=== PATIENT | female | born 1960 | race Caucasian/White ===

== ENCOUNTER 2016-06-28 00:01 | Observation (INO) | payer OTHER, MEDICARE ==
[~2016-06-28] VITALS: Ht 175.3 cm; Wt 118.7 kg
[~2016-06-28 00:01] MED LIST: ALBU8.5H3 PO; ALPR0.5T6 PO; ASPI-664 PO; BUPR100T14 PO; CLON-379 PO; HYDR-906 PO; INSU100V14 SC; LISI20TA11 PO; METF1000 PO; METO25TA4 PO; OMEP40CA6 PO; ONDA4TAB14 PO; RANI150T5 PO; SITA100T8 PO; TRIA0.2521 PO; VENL150C94 PO
[2016-06-28] MEDS ORDERED: SOD CHLORIDE 0.9% 1,000 ML IV STA (00:33)
[2016-06-28 01:23] LABS: ADD SCAN DIFF NO
[2016-06-28 01:26] LABS: BASOPHIL # 0.1 10^3/ul (0.0-0.1); BASOPHILS % 0.4 % (0.0-2.0); EOSINOPHILS # 0.6 10^3/ul (0.0-0.5); EOSINOPHILS % 4.6 % (0.0-7.0); HEMATOCRIT 37.3 % (37.0-47.0); HEMOGLOBIN 11.8 g/dl (12.0-16.0); LYMPHOCYTES % 30.7 % (15.0-51.0); MEAN CORPUSCULAR HEMOGLOBIN 27.4 pg (29.0-33.0); MEAN CORPUSCULAR HGB CONC 31.6 g/dl (32.0-37.0); MEAN CORPUSCULAR VOLUME 86.7 fl (82.0-101.0); MEAN PLATELET VOLUME 9.3 fl (7.4-10.4); MONOCYTE # 0.8 10^3/ul (0.3-0.9); MONOCYTES % 6.1 % (0.0-11.0); NEUTROPHIL # 7.4 10^3/ul (1.6-7.5); NEUTROPHILS % 57.6 % (39.0-77.0); PLATELET COUNT 319 10^3/UL (140-415); RED CELL DISTRIBUTION WIDTH 14.9 % (11.5-14.5); WHITE BLOOD COUNT 12.9 10^3/ul (4.8-10.8)
[2016-06-28 01:38] LABS: ALBUMIN 4.1 g/dl (3.3-4.9)
[2016-06-28 01:39] LABS: POTASSIUM 4.2 mmol/L (3.5-5.1)
[2016-06-28 01:41] LABS: ALBUMIN/GLOBULIN RATIO 1.41; CREATININE 0.67 mg/dl (0.44-1.00)
[2016-06-28 01:42] LABS: CALCIUM 9.8 mg/dl (8.4-10.2)
[2016-06-28 01:54] LABS: ADD UMIC YES; URINE BILIRUBIN (Dip) NEGATIVE (NEGATIVE); URINE BLOOD (Dip) NEGATIVE (NEGATIVE); URINE COLOR LT. YELLOW (YELLOW); URINE KETONES (Dip) TRACE (NEGATIVE); URINE NITRITE (Dip) NEGATIVE (NEGATIVE); URINE TOTAL PROTEIN (Dip) TRACE (NEGATIVE); URINE UROBILINOGEN (Dip) 0.2 E.U./dL (0.1-1.0)
[2016-06-28 02:08] LABS: URINE RBCS 0-2 /HPF (0)
[2016-06-28 02:09] LABS: BACTERIA,URINE OCCASIONAL; SQUAMOUS EPITHELIAL CELL,UR FEW; URINE LEUKOCYTE ESTERASE (Dip) TRACE (NEGATIVE)
[2016-06-28] MEDS ORDERED: SODIUM CHLORIDE 0.9% 1L BAG IV* STA (02:17)
[2016-06-28] MEDS ORDERED: CEFEPIME 2GM/50 ML (PMX) 50 ML IVPB STA (02:17)
[2016-06-28] MEDS ORDERED: VANCOMYCIN 1 GM (PMX) 250 ML IVPB ONE (02:30)
--- NOTE | 2016-06-28 02:57 | RADRPT ---
PROCEDURE: XR Chest. CLINICAL INDICATION: Possible sepsis. TECHNIQUE: 2 frontal views of the chest was obtained COMPARISON: 01/11/2016. FINDINGS: The heart and mediastinum are within normal limits. The lungs are clear. There is no pleural effusion or pneumothorax. IMPRESSION: No acute disease. RPTAT: [facility] Physician Pallavi Date Time Electronically viewed and signed by Berhane Win Physician on 06/28/2016 02:57 RS/
--- NOTE | 2016-06-28 04:00 | ERA ---
ER Documentation Chief Complaint Date/Time DATE: 06/28/16 TIME: 03:59 Chief Complaint RECENT CHANGES TO INSULIN MED, BLOOD SUGAR IS HIGH >405 AT 23:25. +AIKEN HPI This is a very pleasant 55 year female console points to severely elevated blood sugars. Patient such as a mild headache. She had recent change to her blood sugar regimen. She denies any fevers or chills. She denies any other current complaints. ROS All systems reviewed and are negative except as per history of present illness. Medications Home Meds Active Scripts Ondansetron (Ondansetron Odt) 4 Mg Tab.rapdis, 4 MG PO Q6H Y for NAUSEA AND/OR VOMITING, #10 TAB Prov:DANIEL KATZ 03/24/16 Hydrocodone/Acetaminophen ([place] 5-325 Tablet) 1 Each Tablet, 1 TAB PO Q6H Y for PAIN, #20 TAB Prov:DANIEL KATZ 03/24/16 Reported Medications Aspirin (Low Dose Aspirin) 81 Mg Tablet., 81 MG PO DAILY, #30 TAB 01/11/16 Omeprazole* (Omeprazole*) 40 Mg Capsule.dr, 40 MG PO DAILY, #30 CAP 01/11/16 Sitagliptin* (Januvia*) 100 Mg Tablet, 100 MG PO DAILY, #30 TAB 01/11/16 Ranitidine Hcl* (Ranitidine Hcl*) 150 Mg Tablet, 150 MG PO HS, #30 TAB 01/11/16 Metoprolol Tartrate* (Lopressor*) 25 Mg Tablet, 25 MG PO DAILY, #60 TAB 01/11/16 Clonidine Hcl* (Clonidine Hcl*) 0.1 Mg Tab, 0.1 MG PO BID Y for ELEVATED BLOOD PRESSURE, TAB 01/11/16 Metformin Hcl* (Metformin Hcl*) 1,000 Mg Tablet, 1000 MG PO BID, #60 07/28/15 Insulin Regular, Human (Humulin R) 100 Units/Ml Vial, 0 SC 10AM 5PM MIDNIGHT, VIAL 07/28/15 Venlafaxine Hcl* (Venlafaxine Hcl ER*) 150 Mg Cap.er.24h, 150 MG PO DAILY, #30 07/28/15 Bupropion Hcl* (Bupropion Hcl*) 100 Mg Tablet, 100 MG PO TID, #90 07/28/15 Albuterol Sulfate* (Proair HFA*) 8.5 Gm Hfa.aer.ad, 1 PUFF PO Q4 Y for WHEEZING AND SOB, #9 07/28/15 Alprazolam* (Alprazolam*) 0.5 Mg Tablet, 0.5 MG PO QHS Y for ANXIETY, #60 07/28/15 Triazolam* (Triazolam*) 0.25 Mg Tablet, 0.25 MG PO QHS Y for SLEEP, #30 07/28/15 Lisinopril* (Lisinopril*) 20 Mg Tablet, 20 MG PO DAILY, #30 07/28/15 Allergies Allergies: Coded Allergies: No Known Allergy (Unverified , 03/24/16) PMhx/Soc History of Surgery: Yes (Left knee, cholecystectomy, bilateral cataract removal , right wrist ganglio) Anesthesia Reaction: No Hx Neurological Disorder: No Hx Respiratory Disorders: Yes (Asthma) Hx Cardiac Disorders: Yes (HTN) Hx Psychiatric Problems: Yes (Depression, Insomnia) Hx Miscellaneous Medical Probl: Yes (DM, IBS) Hx Alcohol Use: No Hx Substance Use: No Hx Tobacco Use: No Smoking Status: Never smoker Physical Exam Vitals Vital Signs Date Time Temp Pulse Resp B/P Pulse Ox O2 Delivery O2 Flow Rate FiO2 06/28/16 03:44 99 18 135/75 99 Room Air 06/28/16 01:35 91 19 161/71 97 Room Air 06/28/16 00:11 98.5 102 22 176/83 94 Physical Exam Const: [] Head: Atraumatic Eyes: Normal Conjunctiva ENT: Normal External Ears, Nose and Mouth. Neck: Full range of motion..~ No meningismus. Resp: Clear to auscultation bilaterally Cardio: Regular rate and rhythm, no murmurs Abd: Soft, non tender, non distended. Normal bowel sounds Skin: No petechiae or rashes Back: No midline or flank tenderness Ext: No cyanosis, or edema Neur: Awake and alert Psych: Normal Mood and Affect Result Diagram: 06/28/1611106/28/16111 Results 24 hrs Laboratory Tests Test 06/28/16 01:12 06/28/16 03:48 Alanine Aminotransferase (ALT/SGPT) 36IU/L Albumin 4.1g/dl Albumin/Globulin Ratio 1.41 Alkaline Phosphatase 119IU/L Anion Gap 20 Aspartate Amino Transf (AST/SGOT) 21IU/L Basophils # 0.110^3/ul Basophils % 0.4% Blood Urea Nitrogen 20mg/dl Calcium Level 9.8mg/dl Carbon Dioxide Level 28mmol/L Chloride Level 101mmol/L Creatinine 0.67mg/dl Direct Bilirubin 0.00mg/dl Eosinophils # 0.610^3/ul Eosinophils % 4.6% Globulin 2.90g/dl Glucose Level 333mg/dl Hematocrit 37.3% Hemoglobin 11.8g/dl Indirect Bilirubin 0.0mg/dl Lactic Acid Level 2.7mmol/L Lymphocytes # 4.010^3/ul Lymphocytes % 30.7% Mean Corpuscular Hemoglobin 27.4pg Mean Corpuscular Hemoglobin Concent 31.6g/dl Mean Corpuscular Volume 86.7fl Mean Platelet Volume 9.3fl Monocytes # 0.810^3/ul Monocytes % 6.1% Neutrophils # 7.410^3/ul Neutrophils % 57.6% Nucleated Red Blood Cells # 0.010^3/ul Nucleated Red Blood Cells % 0.0/100WBC Platelet Count 31210^3/UL Potassium Level 4.2mmol/L Red Blood Count 4.3010^6/ul Red Cell Distribution Width 14.9% Sodium Level 145mmol/L Total Bilirubin 0.0mg/dl Total Protein 7.0g/dl Urine Bacteria OCCASIONAL Urine Bilirubin NEGATIVE Urine Clarity CLEAR Urine Color LT. YELLOW Urine Glucose 0.25%% Urine Hemoglobin NEGATIVE Urine Ketones TRACE Urine Leukocyte Esterase TRACE Urine Microscopic RBC 0-2/HPF Urine Microscopic WBC 5-10/HPF Urine Nitrite NEGATIVE Urine Specific [place] >=1.030 Urine Squamous Epithelial Cells FEW Urine Total Protein TRACE Urine Urobilinogen 0.2 E.U./dL Urine pH 5.5 White Blood Count 12.910^3/ul Bedside Glucose 189mg/dL Current Medications Medications (Trade) Dose Ordered Sig/Lino Route PRN Reason Start Time Stop Time Status Last Admin Dose Admin Sodium Chloride (NS) 1,000 ml @ 1,000 mls/hr Q1H STAT IV 06/28/16 00:33 06/28/16 01:32 DC 06/28/16 01:26 Sodium Chloride 3550 ml 3,550 ml BOLUS OVER 2 HOURS STAT IV* 06/28/16 02:17 06/28/16 02:19 DC 06/28/16 03:39 Cefepime HCl 50 ml @ 100 mls/hr ONCE STAT IVPB 06/28/16 02:17 06/28/16 02:46 DC 06/28/16 03:39 Vancomycin HCl (Vancocin) 250 ml @ 125 mls/hr ONCE ONCE IVPB 06/28/16 02:30 06/28/16 04:29 Procedures/MDM Patient's infectious symptoms have not stabilized and the patient is at risk of rapid decompensation. The patient will be admitted for careful hydration, antibiotic therapy, and infectious source control. Severe Sepsis Assessment: Infectious Source: [pyleonephritis] End organ damage indicated by: [Lactate > 2.0 mmol/L Severe Sepsis Managment: Blood Cultures X 2 before broad spectrum antibiotics initiated within 3 hours of recognition. 30 ml/kg NS bolus Completed Initial Lactate: 2.7 Repeat Lactate pending Critical Care: Time: 45 minutes Treatments/Evaluations: Emergent fluid management, while maintaining close respiratory support. Immediate broad spectrum antibiotic therapy. Simultaneous assessment for possible sources in order to direct therapy. Consideration for invasive and chemical support to prevent respiratory or cardiac collapse. Septic Shock Assessment (1 hour post 30 ml/kg fluid bolus): Hypotension (SBP < 90 or 40 mmHg drop, MAP < 65): [No] Lactic acid > 4.0 [No] Perfusion Reassessment for Septic Shock: Temp 98.9, Pulse 88, RR 18, BP 117/77] Heart Exam: [Tachycardic] Lung Exam: [No Crackles] Capillary Refill: [Delayed] Peripheral Pulses: [Radially present] Skin: [Mottled, pale] Accepting Care Team: Current data and ongoing care discussed. Time: 3 AM Primary Provider: Hospitalist Consulting: [XOXOXO] Outstanding Data: none Departure Diagnosis: Primary Impression: Hyperglycemia Additional Impression: Sepsis Qualified Code: A41.9 - Sepsis, due to unspecified organism Condition: Serious DANIEL KATZArin Jun 28, 2016 04:00
[2016-06-28 04:04] VITALS: TEMP 98.5
[2016-06-28 04:37] VITALS: PULSE 71
[2016-06-28 04:58] VITALS: BP 138/63; RESP 20
[2016-06-28] MEDS ORDERED: HYDROCODONE/APAP (5/325) TAB PO PRN ×2 (05:00)
[2016-06-28] MEDS ORDERED: hydrALAzine 20 MG INJ IV PRN (05:00)
[2016-06-28] MEDS ORDERED: NACL 0.9% 3 ML SYG IV SCH (05:00)
[2016-06-28] MEDS ORDERED: ALBUTEROL/IPRATROPIUM (NEB) 3 ML AMP HHN PRN (05:00)
[2016-06-28] MEDS ORDERED: ONDANSETRON 4 MG INJ IV PRN (05:00)
[2016-06-28] MEDS ORDERED: NA PHOSPHATE/BIPHOS 133 ML ENEMA PR PRN (05:00)
[2016-06-28] MEDS ORDERED: NITROGLYCERIN (SL) 0.4 MG TAB SL PRN (05:00)
[2016-06-28] MEDS ORDERED: morphine 2 MG INJ IV PRN (05:00)
[2016-06-28] MEDS ORDERED: MAGNESIUM HYDROXIDE 30ML CUP PO PRN (05:00)
[2016-06-28] MEDS ORDERED: DOCUSATE SODIUM 100 MG CAP PO PRN (05:00)
[2016-06-28] MEDS ORDERED: LORAZEPAM 2 MG INJ IV PRN (05:00)
[2016-06-28 05:11] VITALS: Ht 175.3 cm; Wt 118.7 kg
[2016-06-28] MEDS ORDERED: GLUCAGON 1 MG INJ IM PRN (05:30)
[2016-06-28] MEDS ORDERED: DEXTROSE 50% 50 ML SYRINGE IV PRN ×2 (05:30)
[2016-06-28] MEDS ORDERED: GLUCOSE GEL 15 GRAM TUBE PO PRN ×2 (05:30)
[2016-06-28] MEDS ORDERED: GLUCOSE GEL 15 GRAM TUBE BUCCAL PRN (05:30)
[2016-06-28] MEDS: SOD CHLORIDE 0.9% 1,000 ML IV SCH ×3 (06:05→17:39)
[2016-06-28] MEDS: INSULIN ASPART [NOVOLOG] 3 ML PEN SC SCH ×5 (06:06→20:14)
[2016-06-28] MEDS: ACETAMINOPHEN 325 MG TAB PO PRN ×2 (06:07→22:13)
[2016-06-28] MEDS: PIPER-TAZO 3.375 GM IV (PMX) 100 ML IVPB SCH ×4 (06:43→23:43)
--- NOTE | 2016-06-28 06:53 | HP ---
DATE OF ADMISSION: 06/28/2016 CHIEF COMPLAINT: Headache and high blood sugars. HISTORY OF PRESENT ILLNESS: The patient is a 55-year-old female with past medical history of type 1 diabetes, depression, hypertension, irritable bowel syndrome, insomnia, and asthma who comes in wit h very elevated blood sugars. Sugars were found to be greater than 405 on admission. She has also been having some mild headache symptoms. No dizziness or loss of consciousness. No fevers or chill s. Apparently, she had a recent change to her medicines for controlling her blood sugars for diabet es. No chest pain, no shortness of breath, no abdominal pain. No nausea or vomiting. When she cam e in today, she was also found with, in addition to high blood sugars, a white count of 12.9. UA wa s also trace leukocyte esterase positive. She has lactic acidosis of 2.7 as well and mild hypernatr emia. The patient was last here at our hospital from 03/12/2016 to 03/14/2016, and at that time, bailey sandoval was treated for abdominal pain. PAST MEDICAL HISTORY: As stated above. ALLERGIES: NO KNOWN DRUG ALLERGIES. HOME MEDICINES: 1. ProAir HFA q. 4 hours p.r.n. 2. Clonidine 0.1 mg b.i.d. p.r.n. 3. Lisinopril 20 mg daily. 4. Lopressor 25 mg daily. 5. Alprazolam 0.5 mg at bedtime p.r.n. 6. Aspirin 81 mg daily. 7. Bupropion 100 mg t.i.d. 8. [place] 5/325 q. 6 p.r.n. 9. Triazolam 0.25 mg at bedtime p.r.n. 10. Effexor 150 mg daily. 11. Omeprazole 40 mg daily. 12. Zofran 4 mg q. 6 p.r.n. 13. Ranitidine 150 mg at bedtime. 14. Humulin R insulin. 15. Metformin 1000 mg b.i.d. 16. Januvia 100 mg daily. PAST SURGICAL HISTORY: Left knee surgery in the past, cholecystectomy, bilateral cataract removal i n the past, right wrist ganglion removal. SOCIAL HISTORY: Negative for smoking, drinking, or IV drug abuse. FAMILY HISTORY: Noncontributory. PHYSICAL EXAMINATION: VITAL SIGNS: T-max 98.5, pulse 91 to 102, respirations 18 to 22, blood pressure 135 to 176 systolic over 75 to 82 diastolic, saturating at 94% to 99% on room air. GENERAL: The patient is lying in bed, answering questions appropriately, in no acute distress. HEENT: Pupils equal, round, reactive to light. Extraocular muscles intact. NECK: Supple, no thyromegaly. LUNGS: Clear to auscultation bilaterally. CARDIOVASCULAR: S1, S2 heard. No rubs or gallops. ABDOMEN: Soft, nontender, nondistended. Normal bowel sounds. No rebound or guarding. MUSCULOSKELETAL: No lower extremity edema bilaterally. NEUROLOGIC: No focal deficits. LABORATORIES: WBC 12.9, hemoglobin 11.8, hematocrit 37.3, platelets 219. Sodium 145, potassium 4.3 , chloride 101, CO2 28, BUN 20, creatinine 0.67, glucose 333. The lactic acid was 2.7 initially, no w is 2.1. LFTs are normal. Again, the UA shows trace leukocyte esterase positive. Chest x-ray res ults showed no acute disease. ASSESSMENT AND PLAN: A 55-year-old female coming in with signs of elevated blood sugar and elevated lactic acid, sepsis, most possibly secondary to urinary tract infection. 1. Elevated blood sugars. Sugars are improving. We will check a TSH, A1c, lipid panel, put her on insulin sliding scale, hold her metformin for now given her sepsis, IV fluids as well. Consider en docrinology consult. 2. Sepsis secondary to urinary tract infection. Continue broad spectrum antibiotics, IV fluids. F ollow up culture results. 3. History of type 1 diabetes. Again, see #1. 4. History of depression. Continue Effexor and Wellbutrin. 5. History of hypertension. Continue metoprolol, hold CAYDEN inhibitor for now. 6. Gastrointestinal prophylaxis. Ranitidine. 7. Deep venous thrombosis prophylaxis. She will be on heparin subcutaneously. 8. History of irritable bowel syndrome. Continue to monitor for now. Dictated By: ZANDRA RODRIGUEZ Conf#: [id number] DID#: [id number]
[2016-06-28 07:30] VITALS: BP 125/57; RESP 16
[2016-06-28] MEDS ORDERED: INFLUENZA VIRUS VACCINE 0.5 ML SYG IM* ONE (08:30)
[2016-06-28] MEDS: ALPRAZOLAM 0.5 MG TAB PO PRN ×2 (08:30→23:43)
[2016-06-28] MEDS: ASPIRIN (EC) 81 MG TAB PO SCH (08:31)
[2016-06-28] MEDS: BUPROPION 100 MG TAB PO SCH ×3 (08:31→20:12)
[2016-06-28] MEDS: VENLAFAXINE (XR) 75 MG CAP PO SCH (08:31)
[2016-06-28] MEDS: METOPROLOL 25 MG TAB PO SCH (08:33)
[2016-06-28] MEDS: HEPARIN 5,000 UNIT/0.5 ML SYG SC SCH ×2 (08:37→20:15)
--- NOTE | 2016-06-28 17:59 | CONS ---
Date/Time of Note Date/Time of Note DATE: 06/28/16 TIME: 17:54 Assessment/Plan Assessment/Plan Problems: (1) Asthma, moderate persistent Status: Chronic Comment: She is doing well from this and should be continued on her Advair. Qualifiers: Qualified Code: J45.40 - Moderate persistent asthma without complication (2) Irritable bowel syndrome Status: Chronic Comment: This apparently right now is quiescent she previously had upper endoscopy and colon[place] [address] Pal Qualifiers: Qualified Code: K58.9 - Irritable bowel syndrome, unspecified type (3) Diabetes mellitus type 2 in obese Status: Chronic Comment: Her primary reason for being admitted was that she could not get her insulin. Rather than titrating dose the emergency room physicians did not call us and admitted her directly labeling her sepsis. Will adjust her regimen and try and get her her U500 insulin authorized through her insurance (4) Obesity (BMI 30-39.9) Status: Chronic Comment: Counseled (5) Gastroesophageal reflux disease Status: Chronic Comment: Noted Qualifiers: Qualified Code: K21.9 - Gastroesophageal reflux disease, esophagitis presence not specified Consultation Date/Type/Reason Admit Date/Time Jun 28, 2016 at 02:29 Date of Consultation: Jun 28, 2016 Type of Consultation: Endocrinology Reason for Consultation Diabetes mellitus type 2 with significant insulin resistance syndrome; obesity; dysthymia with anxiety; asthma persistent moderate; Referring Provider: ZANDRA GOLDMAN of Present Illness 55-year-old single female with obesity and insulin resistance syndrome. She reports she is on Humulin regular U5 100 insulin 18 units in the morning 20 units in the afternoon and a sliding scale at bedtime. Due to issues with getting prior authorization from the from her new insurance she will was running out of this was transitioned over to basal bolus. Her sugars went up and she presents the emergency room. In the emergency room her sugars were not as high as what is verbally written down according to the laboratory notes however she was not given insulin. Her sugars have steadily decreased since being in the hospital. Regardless of she was labeled as having sepsis which I will defer off to the other physicians to verify Constitutional: no complaints (Denies fever chills or sweats) Respiratory: no complaints Cardiovascular: no complaints Gastrointestinal: no complaints Past Medical History Medical History: diabetes, gallstones, irritable bowel syndrome Past Surgical History Past Surgical Hx: other Family History Significant Family History: diabetes, hypertension Social History Alcohol Use: none Smoking Status: Never smoker Drug Use: none Exam/Review of Systems Vital Signs Vitals Vital Signs Date Time Temp Pulse Resp B/P Pulse Ox O2 Delivery O2 Flow Rate FiO2 06/28/16 07:30 98.1 78 16 125/57 97 06/28/16 04:37 Room Air Intake and Output 06/27/16 06/27/16 06/28/16 14:59 22:59 06:59 Intake Total 250 ml Balance 250 ml Exam Obese female eating her dinner Constitutional: alert, oriented Respiratory: clear to auscultation, normal air movement Cardiovascular: nl pulses, regular rate and rhythm Gastrointestinal: nl liver, spleen, non-tender, soft Results Result Diagram: 06/28/1611106/28/16111 Results 24 hrs Laboratory Tests Test 06/28/16 01:04 06/28/16 01:12 06/28/16 03:40 06/28/16 03:48 Bedside Glucose 335 H 189 Alanine Aminotransferase (ALT/SGPT) 36 Albumin 4.1 Albumin/Globulin Ratio 1.41 Alkaline Phosphatase 119 Anion Gap 20 H Aspartate Amino Transf (AST/SGOT) 21 Basophils # 0.1 Basophils % 0.4 Blood Urea Nitrogen 20 Calcium Level 9.8 Carbon Dioxide Level 28 Chloride Level 101 Creatinine 0.67 Direct Bilirubin 0.00 Eosinophils # 0.6 H Eosinophils % 4.6 Globulin 2.90 Glucose Level 333 H Hematocrit 37.3 Hemoglobin 11.8 L Indirect Bilirubin 0.0 Lactic Acid Level 2.7 H 2.1 Lymphocytes # 4.0 H Lymphocytes % 30.7 Mean Corpuscular Hemoglobin 27.4 L Mean Corpuscular Hemoglobin Concent 31.6 L Mean Corpuscular Volume 86.7 Mean Platelet Volume 9.3 Monocytes # 0.8 Monocytes % 6.1 Neutrophils # 7.4 Neutrophils % 57.6 Nucleated Red Blood Cells # 0.0 Nucleated Red Blood Cells % 0.0 Platelet Count 319 Potassium Level 4.2 Red Blood Count 4.30 Red Cell Distribution Width 14.9 H Sodium Level 145 H Total Bilirubin 0.0 L Total Protein 7.0 Urine Bacteria OCCASIONAL Urine Bilirubin NEGATIVE Urine Clarity CLEAR Urine Color LT. YELLOW Urine Glucose 0.25% H Urine Hemoglobin NEGATIVE Urine Ketones TRACE H Urine Leukocyte Esterase TRACE H Urine Microscopic RBC 0-2 Urine Microscopic WBC 5-10 Urine Nitrite NEGATIVE Urine Specific [place] >=1.030 H Urine Squamous Epithelial Cells FEW Urine Total Protein TRACE Urine Urobilinogen 0.2 E.U./dL Urine pH 5.5 White Blood Count 12.9 #H Test 06/28/16 03:49 06/28/16 05:02 06/28/16 06:17 06/28/16 08:29 Bedside Glucose 194 153 133 Free Thyroxine 0.82 Lactic Acid Level 1.8 Test 06/28/16 12:05 06/28/16 13:20 Bedside Glucose 264 H Lactic Acid Level 2.1 Medications Medications Current Medications Ondansetron HCl (Zofran Inj) 4 mg Q6H PRN IV NAUSEA AND/OR VOMITING; Start 06/28 at 05:00 Acetaminophen (Tylenol Tab) 650 mg Q6H PRN PO PAIN LEVEL 1-3 OR FEVER Last administered on 06/28/16 06:07; Admin Dose 650 MG; Start 06/28/16 at 05:00 Acetaminophen/ Hydrocodone Bitart ([place] (5/325)) 1 tab Q6H PRN PO MODERATE PAIN LEVEL 4-6; Start 06/28/16 at 05:00 Morphine Sulfate (morphine) 2 mg Q4H PRN IV SEVERE PAIN LEVEL 7-10; Start at 05:00 Docusate Sodium (Colace) 100 mg Q12H PRN PO CONSTIPATION; Start 06/28/16 at 05: 00 Magnesium Hydroxide (Milk Of Mag) 30 ml DAILY PRN PO CONSTIPATION; Start at 05:00 Sodium Biphosphate/ Sodium Phosphate (Fleet Enema) 133 ml DAILY PRN HI CONSTIPATION; Start 06/28/16 at 05:00 Heparin Sodium (Porcine) (Heparin (5000 Units/0.5 ml)) 5,000 unit Q12 SC Last administered on 06/28/16 08:37; Admin Dose 5,000 UNIT; Start 06/28/16 at 09:00 Lorazepam 0.5 mg 0.5 mg Q6H PRN IV ANXIETY; Start 06/28/16 at 05:00 Sodium Chloride 1,000 ml @ 100 mls/hr Q10H IV Last administered on 06/28/16 17 :39; Admin Dose 100 MLS/HR; Start 06/28/16 at 04:39 Piperacillin Sod/ Tazobactam Sod (Zosyn 3.375gm/ 100 ml (Pmx)) 100 ml @ 200 mls /hr Q6 IVPB Last administered on 06/28/16 17:28; Admin Dose 200 MLS/HR; Start 06/28/16 at 06:00 Hydralazine HCl (Apresoline) 10 mg Q6H PRN IV ELEVATED BLOOD PRESSURE; Start at 05:00 Nitroglycerin (Nitroglycerin (Sl Tab) 0.4 Mg) 1 tab Q5M PRN SL ANGINA; Start at 05:00 Insulin Aspart (Novolog Insulin Pen) NOVOLOG *MILD* ALGORI... Q4 SC Last administered on 06/28/16 17:30; Admin Dose 2 UNIT; Start 06/28/16 at 05:00 Alprazolam (Xanax) 0.5 mg QHS PRN PO ANXIETY Last administered on 06/28/16 08: 30; Admin Dose 0.5 MG; Start 06/28/16 at 05:00 Aspirin (Halfprin) 81 mg DAILY PO Last administered on 06/28/16 08:31; Admin Dose 81 MG; Start 06/28/16 at 09:00 Bupropion HCl (Wellbutrin) 100 mg TID PO Last administered on 06/28/16 12:19; Admin Dose 100 MG; Start 06/28/16 at 09:00 Clonidine (Catapres) 0.1 mg BID PRN PO ELEVATED BLOOD PRESSURE>150; Start at 05:00 Acetaminophen/ Hydrocodone Bitart ([place] (5/325)) 1 tab Q6H PRN PO PAIN; Start 06/28/16 at 05:00 Metoprolol Tartrate (Lopressor) 25 mg DAILY PO Last administered on 06/28/16 08 :33; Admin Dose 25 MG; Start 06/28/16 at 09:00 Ranitidine HCl (Zantac) 150 mg HS PO ; Start 06/28/16 at 21:00 Venlafaxine HCl (Effexor Xr) 150 mg DAILY PO Last administered on 06/28/16 08: 31; Admin Dose 150 MG; Start 06/28/16 at 09:00 Miscellaneous Information 1 ea NOTE XX ; Start 06/28/16 at 05:30 Glucose (Glutose) 15 gm Q15M PRN PO DECREASED GLUCOSE; Start 06/28/16 at 05:30 Glucose (Glutose) 22.5 gm Q15M PRN PO DECREASED GLUCOSE; Start 06/28/16 at 05:30 Dextrose (D50w Syringe) 25 ml Q15M PRN IV DECREASED GLUCOSE; Start 06/28/16 at 05:30 Dextrose (D50w Syringe) 50 ml Q15M PRN IV DECREASED GLUCOSE; Start 06/28/16 at 05:30 Glucagon (Glucagen) 1 mg Q15M PRN IM DECREASED GLUCOSE; Start 06/28/16 at 05:30 Glucose (Glutose) 15 gm Q15M PRN BUCCAL DECREASED GLUCOSE; Start 06/28/16 at 05: 30 ERICK LI MD Jun 28, 2016 17:59
[2016-06-28] MEDS: LINAGLIPTIN 5 MG TABLET PO SCH (18:19)
[2016-06-28] MEDS: metFORMIN 500 MG TAB PO SCH (18:20)
[2016-06-28] MEDS ORDERED: ZOLPIDEM 5 MG TAB PO PRN (18:30)
[2016-06-28 20:15] VITALS: BP_SYST 173; BP_SYST 21; BP_DIAS 69; BP_DIAS 91; RESP 21
[2016-06-28] MEDS ORDERED: RANITIDINE 150 MG TAB PO SCH (21:00)
[2016-06-29] MEDS: INSULIN ASPART [NOVOLOG] 3 ML PEN SC SCH ×4 (01:13→13:08)
[2016-06-29] MEDS: PIPER-TAZO 3.375 GM IV (PMX) 100 ML IVPB SCH (05:32)
[2016-06-29] MEDS: SOD CHLORIDE 0.9% 1,000 ML IV SCH (05:33)
[2016-06-29 06:31] LABS: CHOL/HDL RATIO 8.7 RATIO
[2016-06-29 06:43] LABS: THYROID STIMULATING HORMONE 1.18 MIU/L (0.465-4.680)
[2016-06-29 07:44] VITALS: BP 139/63; RESP 19
[2016-06-29 09:00] LABS: ADD SCAN DIFF NO
[2016-06-29 09:05] LABS: BASOPHIL # 0.1 10^3/ul (0.0-0.1); BASOPHILS % 0.5 % (0.0-2.0); EOSINOPHILS # 0.7 10^3/ul (0.0-0.5); EOSINOPHILS % 5.7 % (0.0-7.0); HEMATOCRIT 36.9 % (37.0-47.0); HEMOGLOBIN 11.5 g/dl (12.0-16.0); LYMPHOCYTES # 3.5 10^3/ul (0.8-2.9); LYMPHOCYTES % 27.5 % (15.0-51.0); MEAN CORPUSCULAR HEMOGLOBIN 27.6 pg (29.0-33.0); MEAN CORPUSCULAR HGB CONC 31.2 g/dl (32.0-37.0); MEAN CORPUSCULAR VOLUME 88.5 fl (82.0-101.0); MEAN PLATELET VOLUME 9.8 fl (7.4-10.4); MONOCYTE # 0.7 10^3/ul (0.3-0.9); MONOCYTES % 5.6 % (0.0-11.0); NEUTROPHIL # 7.6 10^3/ul (1.6-7.5); NEUTROPHILS % 60.1 % (39.0-77.0); PLATELET COUNT 297 10^3/UL (140-415); RED BLOOD COUNT 4.17 10^6/ul (4.20-5.40); RED CELL DISTRIBUTION WIDTH 14.9 % (11.5-14.5); WHITE BLOOD COUNT 12.8 10^3/ul (4.8-10.8)
[2016-06-29 09:07] LABS: POTASSIUM 4.2 mmol/L (3.5-5.1)
[2016-06-29 09:09] LABS: CREATININE 0.69 mg/dl (0.44-1.00)
[2016-06-29 09:11] LABS: CALCIUM 8.8 mg/dl (8.4-10.2); MAGNESIUM 1.8 mg/dl (1.7-2.5)
[2016-06-29] MEDS: BUPROPION 100 MG TAB PO SCH ×2 (09:16→13:05)
[2016-06-29] MEDS: VENLAFAXINE (XR) 75 MG CAP PO SCH (09:16)
[2016-06-29] MEDS: LINAGLIPTIN 5 MG TABLET PO SCH (09:16)
[2016-06-29] MEDS: ASPIRIN (EC) 81 MG TAB PO SCH (09:16)
[2016-06-29] MEDS: metFORMIN 500 MG TAB PO SCH (09:16)
[2016-06-29] MEDS: METOPROLOL 25 MG TAB PO SCH (09:17)
[2016-06-29] MEDS: HEPARIN 5,000 UNIT/0.5 ML SYG SC SCH (09:20)
--- NOTE | 2016-06-29 10:54 | PDOCDIS ---
Discharge Instructions DIAGNOSIS Discharge Diagnosis: Diabetes mellitus type 2. Uncontrolled. CONDITION Patient Condition: Stable HOME CARE INSTRUCTIONS: Special Diet: Carbohydrate controlled diet. OTHER ORDERS: Other Orders: 1. Take a carbohydrate controlled diet as tolerated. 2. Resume home medications. 3. Activities as tolerated. 4. Follow-up with endocrinology as scheduled. IMER CHILDRESS NP Jun 29, 2016 10:54
--- NOTE | 2016-06-29 12:52 | DS ---
Date/Time of Note Date/Time of Note DATE: 06/29/16 TIME: 12:47 Discharge Summary Admission/Discharge Info Admit Date/Time Jun 28, 2016 at 02:29 Discharge Date/Time Final Diagnosis Diabetes Mellitus Type 2 with hyperglycemia. Patient Condition: Stable Hospital Course 55-year-old single female with obesity and insulin resistance syndrome. She reports she is on Humulin regular U-500 insulin 18 units in the morning 20 units in the afternoon and a sliding scale at bedtime. Due to issues with getting prior authorization from the from her new insurance she will was running out of this was transitioned over to basal bolus. Her sugars went up and she presents the emergency room. In the emergency room her sugars were not as high as what is verbally written down according to the laboratory notes however she was given fluids and not given insulin. Her sugars have steadily decreased since being in the hospital. Home Meds Active Scripts Ondansetron (Ondansetron Odt) 4 Mg Tab.rapdis, 4 MG PO Q6H Y for NAUSEA AND/OR VOMITING, #10 TAB Prov:DANIEL KATZ 03/24/16 Hydrocodone/Acetaminophen (Lysite 5-325 Tablet) 1 Each Tablet, 1 TAB PO Q6H Y for PAIN, #20 TAB Prov:DANIEL KATZ 03/24/16 Reported Medications Aspirin (Low Dose Aspirin) 81 Mg Tablet., 81 MG PO DAILY, #30 TAB 01/11/16 Omeprazole* (Omeprazole*) 40 Mg Capsule.dr, 40 MG PO DAILY, #30 CAP 01/11/16 Sitagliptin* (Januvia*) 100 Mg Tablet, 100 MG PO DAILY, #30 TAB 01/11/16 Ranitidine Hcl* (Ranitidine Hcl*) 150 Mg Tablet, 150 MG PO HS, #30 TAB 01/11/16 Metoprolol Tartrate* (Lopressor*) 25 Mg Tablet, 25 MG PO DAILY, #60 TAB 01/11/16 Clonidine Hcl* (Clonidine Hcl*) 0.1 Mg Tab, 0.1 MG PO BID Y for ELEVATED BLOOD PRESSURE, TAB 01/11/16 Metformin Hcl* (Metformin Hcl*) 1,000 Mg Tablet, 1000 MG PO BID, #60 07/28/15 Insulin Regular, Human (Humulin R) 100 Units/Ml Vial, 0 SC 10AM 5PM MIDNIGHT, VIAL 4/4/16 Venlafaxine Hcl* (Venlafaxine Hcl ER*) 150 Mg Cap.er.24h, 150 MG PO DAILY, #30 07/28/15 Bupropion Hcl* (Bupropion Hcl*) 100 Mg Tablet, 100 MG PO TID, #90 07/28/15 Albuterol Sulfate* (Proair HFA*) 8.5 Gm Hfa.aer.ad, 1 PUFF PO Q4 Y for WHEEZING AND SOB, #9 07/28/15 Alprazolam* (Alprazolam*) 0.5 Mg Tablet, 0.5 MG PO QHS Y for ANXIETY, #60 07/28/15 Triazolam* (Triazolam*) 0.25 Mg Tablet, 0.25 MG PO QHS Y for SLEEP, #30 07/28/15 Lisinopril* (Lisinopril*) 20 Mg Tablet, 20 MG PO DAILY, #30 07/28/15 Follow-up Plan She will continue on Humulin U-500 insulin at her scheduled and designated doses as per her [employer]. 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 She has been given a discount card to cover her Humulin U-500 until the prior authorization is approved. She is currently stable for discharge. Pending Labs Laboratory Tests Test 06/28/16 13:20 06/28/16 18:53 06/28/16 20:01 06/29/16 01:08 Lactic Acid Level 2.1mmol/L (0.5-2.2) 1.7mmol/L (0.5-2.2) Bedside Glucose 176mg/dL (70-220) 175mg/dL (70-220) Test 06/29/16 04:49 06/29/16 05:30 06/29/16 08:07 Anion Gap 16 (8-16) Basophils # 0.110^3/ul (0.0-0.1) Basophils % 0.5% (0.0-2.0) Blood Urea Nitrogen 14mg/dl (7-20) Calcium Level 8.8mg/dl (8.4-10.2) Carbon Dioxide Level 27mmol/L (21-31) Chloride Level 104mmol/L (97-110) Cholesterol Level 184mg/dl (100-200) Cholesterol/HDL Ratio 8.7RATIO Creatinine 0.69mg/dl (0.44-1.00) Eosinophils # 0.710^3/ul (0.0-0.5) Eosinophils % 5.7% (0.0-7.0) Glucose Level 200mg/dl (70-220) HDL Cholesterol 21mg/dl (37-92) Hematocrit 36.9% (37.0-47.0) Hemoglobin 11.5g/dl (12.0-16.0) Hemoglobin A1c 7.7% (0-5.9) LDL Cholesterol, Calculated 55mg/dl Lymphocytes # 3.510^3/ul (0.8-2.9) Lymphocytes % 27.5% (15.0-51.0) Magnesium Level 1.8mg/dl (1.7-2.5) Mean Corpuscular Hemoglobin 27.6pg (29.0-33.0) Mean Corpuscular Hemoglobin Concent 31.2g/dl (32.0-37.0) Mean Corpuscular Volume 88.5fl (82.0-101.0) Mean Platelet Volume 9.8fl (7.4-10.4) Monocytes # 0.710^3/ul (0.3-0.9) Monocytes % 5.6% (0.0-11.0) Neutrophils # 7.610^3/ul (1.6-7.5) Neutrophils % 60.1% (39.0-77.0) Nucleated Red Blood Cells # 0.010^3/ul (0.0-0.0) Nucleated Red Blood Cells % 0.0/100WBC (0.0-0.0) Phosphorus Level 4.0mg/dl (2.5-4.9) Platelet Count 85367^3/UL (140-415) Potassium Level 4.2mmol/L (3.5-5.1) Red Blood Count 4.1710^6/ul (4.20-5.40) Red Cell Distribution Width 14.9% (11.5-14.5) Sodium Level 143mmol/L (135-144) Thyroid Stimulating Hormone (TSH) 1.180MIU/L (0.465-4.680) Triglycerides Level 540mg/dl (0-149) White Blood Count 12.810^3/ul (4.8-10.8) Bedside Glucose 195mg/dL (70-220) 182mg/dL (70-220) DEMETRIUS QUEZADA MD Jun 29, 2016 12:52
--- NOTE | 2016-06-29 14:49 | PN ---
DATE: 06/29/2016 TIME OF EVALUATION: 12:00 p.m. SUBJECTIVE DATA: Denies any complaints at this time. Blood sugar is fairly controlled. OBJECTIVE DATA: VITAL SIGNS: Temperature 97.2, pulse rate 70, respiratory rate 19, blood pressure 139/63, oxygen saturation 97% on room air. GENERAL: This is a morbidly obese female patient, lying in bed, in no apparent distress. HEENT: Head normocephalic and atraumatic. Eyes: Anicteric sclerae. Conjunctivae clear. ENT: Nasal septum is midline. Oral mucosa is moist. NECK: Supple. No JVD noticed. RESPIRATORY: Bilaterally clear to auscultation. No adventitious breath sounds. No use of accessory muscles of respiration. CARDIAC: Regular rate and rhythm. No murmurs heard. ABDOMEN: Soft, nontender, and nondistended. Bowel sounds positive in all 4 quadrants. GENITOURINARY: Deferred. EXTREMITIES: No cyanosis, no clubbing, no edema. Peripheral pulses palpable. NEUROLOGIC: The patient is awake, alert and oriented. Cranial nerves are grossly intact. LABORATORY AND DIAGNOSTIC DATA: WBC 12.8, hemoglobin 11.5, hematocrit 36.9, platelet count 297. Sodium 143, potassium 4.0, chloride 104, carbon dioxide 20 , anion gap 16, BUN 14, creatinine 0.69, glucose 200, calcium 8.8, phosphorus 4.0, magnesium 1.8. ASSESSMENT AND PLAN: 1. Systemic inflammatory response syndrome with leukocytosis and tachycardia. Pancultures negative. Will discontinue the patient's antibiotics. 2. Type 2 diabetes mellitus. Continue insulin management as per Endocrinology. 3. Depression. Continue Effexor and Wellbutrin. 4. Essential hypertension. Continue antihypertensives. 5. Dyslipidemia. Encourage a low cholesterol diet. 6. Fluid, electrolytes, and nutrition. Carbohydrate-controlled diet. 7. Deep venous thrombosis prophylaxis. Bilateral sequential compression devices for gastrointestinal prophylaxis. Histamine 2 receptor blockers. 8. Plan. Await clearance from Endocrinology before discharge. Discontinue antibiotics as there is no evidence of any infection. Case discussed with Dr. Pulliam. IMER PULLIAM MD, AM/NTS Conf#: [id number] DID#: [id number] [facility]
== END 2016-06-29 16:10 | disposition home or self-care (01) ==
LOC: E/R 00:01 → PP2 02:29 → INTOOBSV 02:29 → PP2 04:38 → OBSVTOIN 14:00 → INTOOBSV 14:00 → UNDODISOB 06-29 16:10
PROVIDERS: ADMIT Hospitalist; ATTEND Hospitalist
DX: E10.65 Type 1 diabetes mellitus with hyperglycemia (principal); Z79.4 Long term (current) use of insulin; I10 Essential (primary) hypertension; F32.9 Major depressive disorder, single episode, unspecified; Z23 Encounter for immunization
CPT/HCPCS: 36415; 71010; 80048; 80053; 80061; 81001; 82962; 83036; 83605; 83735; 84100; 84439; 84443; 85025; 87040; 87086; 90686; 93005; 96374; 96375; 97162; 99217; 99291; G0378; J0692; J1815; J2543; J3370; J7030; 81003

== ENCOUNTER 2016-09-29 17:06 | Emergency (ER) | payer MEDICARE, OTHER ==
[~2016-09-29] VITALS: Ht 175.3 cm; Wt 120.0 kg
[2016-09-29 17:09] VITALS: Ht 175.3 cm; Wt 120.0 kg
[2016-09-29] MEDS ORDERED: AMO500 PO (17:42)
[2016-09-29] MEDS ORDERED: NPH10OT RIGHT EAR (17:42)
[2016-09-29] MEDS ORDERED: IBUP-1542 PO (17:43)
--- NOTE | 2016-09-29 18:01 | ERD ---
ER Documentation Chief Complaint Date/Time DATE: 09/29/16 TIME: 17:59 Chief Complaint right ear pain x 2 days HPI This is a 56-year-old female presents to the ER with right ear pain for the last 3 days. She states that pain is throbbing in quality it is nonradiating. She has not had anything for the pain. Patient denies any fevers or chills. She denies any cough or cold symptoms. She denies any hearing loss or tinnitus. ROS 12 point review of systems was done, all negative except per HPI. Medications Home Meds Active Scripts Ibuprofen* (Ibuprofen*) 600 Mg Tablet, 600 MG PO Q6 for 3 Days, TAB Prov:COLIN MARINO 09/29/16 Amoxicillin* (Amoxicillin*) 500 Mg Cap, 500 MG PO TID for 10 Days, CAP Prov:COLIN MARINO 09/29/16 Neomycin/Polymyxin/Hydrocort* (Cortisporin* Otic) 10 Ml Susp, 4 DROP RIGHT EAR QID for 7 Days, EA Prov:COLIN MARINO 09/29/16 Ondansetron (Ondansetron Odt) 4 Mg Tab.rapdis, 4 MG PO Q6H Y for NAUSEA AND/OR VOMITING, #10 TAB Prov:DANIEL KATZ 03/24/16 Hydrocodone/Acetaminophen ([place] 5-325 Tablet) 1 Each Tablet, 1 TAB PO Q6H Y for PAIN, #20 TAB Prov:DANIEL KATZ 03/24/16 Reported Medications Aspirin (Low Dose Aspirin) 81 Mg Tablet., 81 MG PO DAILY, #30 TAB 01/11/16 Omeprazole* (Omeprazole*) 40 Mg Capsule.dr, 40 MG PO DAILY, #30 CAP 01/11/16 Sitagliptin* (Januvia*) 100 Mg Tablet, 100 MG PO DAILY, #30 TAB 01/11/16 Ranitidine Hcl* (Ranitidine Hcl*) 150 Mg Tablet, 150 MG PO HS, #30 TAB 01/11/16 Metoprolol Tartrate* (Lopressor*) 25 Mg Tablet, 25 MG PO DAILY, #60 TAB 01/11/16 Clonidine Hcl* (Clonidine Hcl*) 0.1 Mg Tab, 0.1 MG PO BID Y for ELEVATED BLOOD PRESSURE, TAB 9/18/16 Metformin Hcl* (Metformin Hcl*) 1,000 Mg Tablet, 1000 MG PO BID, #60 07/28/15 Insulin Regular, Human (Humulin R) 100 Units/Ml Vial, 0 SC 10AM 5PM MIDNIGHT, VIAL 07/28/15 Venlafaxine Hcl* (Venlafaxine Hcl ER*) 150 Mg Cap.er.24h, 150 MG PO DAILY, #30 07/28/15 Bupropion Hcl* (Bupropion Hcl*) 100 Mg Tablet, 100 MG PO TID, #90 07/28/15 Albuterol Sulfate* (Proair HFA*) 8.5 Gm Hfa.aer.ad, 1 PUFF PO Q4 Y for WHEEZING AND SOB, #9 07/28/15 Alprazolam* (Alprazolam*) 0.5 Mg Tablet, 0.5 MG PO QHS Y for ANXIETY, #60 07/28/15 Triazolam* (Triazolam*) 0.25 Mg Tablet, 0.25 MG PO QHS Y for SLEEP, #30 07/28/15 Lisinopril* (Lisinopril*) 20 Mg Tablet, 20 MG PO DAILY, #30 07/28/15 Allergies Allergies: Coded Allergies: No Known Allergy (Unverified , 03/24/16) PMhx/Soc History of Surgery: Yes (R wrist ganglion 1989, Bilat cataract September 2015, Cholecystectomny Jan 1981) Anesthesia Reaction: No Hx Neurological Disorder: No Hx Respiratory Disorders: Yes (asthma, current) Hx Cardiac Disorders: No Hx Psychiatric Problems: Yes (Depression) Hx Miscellaneous Medical Probl: Yes (DM,depression,pancolitis,rectal prolapse) Hx Alcohol Use: No Hx Substance Use: No Hx Tobacco Use: No Physical Exam Vitals Vital Signs Date Time Temp Pulse Resp B/P Pulse Ox O2 Delivery O2 Flow Rate FiO2 09/29/16 17:09 98.1 87 18 149/74 99 Physical Exam GENERAL: The patient is well-developed, well-nourished, in no acute distress. NECK: Cervical spine is non tender with no step off. Supple, no nuchal rigidity HEENT: Atraumatic. Pupils equal, round and reactive to light. Extraocular muscles are grossly intact. Conjunctivae pink, no discharge. Right erythematous ear canal, with tragus tenderness. No mastoid tenderness. Tonsilar erythema with no exudates or uvular deviation. Clear rhinorrhea. RESPIRATORY: Clear to auscultation bilaterally. There are no rales, wheezes or rhonchi. HEART: Regular rate and rhythm. No murmurs, clicks, rubs or gallops. EXTREMITIES: No clubbing or cyanosis. Full range of motion. Grossly neurovascularly intact. NEUROLOGIC: Alert and oriented. Cranial nerves II through XII are intact. SKIN: There is no rash. The skin is warm and dry. Procedures/MDM This is a 56-year-old female presents to the ER with right ear pain. Patient does appear to have external otitis. At this time suspicion for mastoiditis is low. Patient will be sent home with amoxicillin and Cortisporin. She will be given ibuprofen for pain. Patient is afebrile and well-appearing. Patient is to follow-up with her primary care doctor within 1-2 days or return to ER sooner if symptoms worsen. My medical decision making shared with the patient she understands and agrees with plan. Departure Diagnosis: Primary Impression: Otitis externa Otitis externa type: unspecified type Laterality: right Chronicity: acute Qualified Code: H60.501 - Acute otitis externa of right ear, unspecified type Condition: Stable Patient Instructions: External Ear Infection (Adult) Additional Instructions: Call your primary care doctor TOMORROW for an appointment during the next 1-2 days.See the doctor sooner or return here if your condition worsens before your appointment time. COLIN MARINO Sep 29, 2016 18:00
== END 2016-09-29 17:46 | disposition home or self-care (01) ==
LOC: E/R 17:06
DX: H60.501 Unspecified acute noninfective otitis externa, right ear (principal); E11.9 Type 2 diabetes mellitus without complications; J45.909 Unspecified asthma, uncomplicated; Z79.4 Long term (current) use of insulin; Z79.82 Long term (current) use of aspirin; Z79.84 Long term (current) use of oral hypoglycemic drugs
CPT/HCPCS: 99283

== ENCOUNTER 2017-01-17 15:08 | Emergency (ER) | payer MEDICARE, OTHER ==
[~2017-01-17] VITALS: Ht 175.3 cm; Wt 110.0 kg
[~2017-01-17 15:08] MED LIST changes: +AMOX500C2 PO; +IBUP-1542 PO; +NPH10OT RIGHT EAR; -TRIA0.2521 PO; +TRIA0.2526 PO
[2017-01-17 15:14] VITALS: Ht 175.3 cm; Wt 110.0 kg
[2017-01-17] MEDS ORDERED: LORA-186 PO (16:59)
[2017-01-17] MEDS ORDERED: ACET325T33 PO (16:59)
--- NOTE | 2017-01-17 17:05 | ERD ---
ER Documentation Chief Complaint Date/Time DATE: 01/17/17 TIME: 17:04 Chief Complaint pt bib self with c/o sore throat x 3 wks HPI 56-year-old female with diabetes type 2 presents with sore throat for the past 3 weeks. Patient rates it moderate in severity increased with swallowing. She denies any fevers. States that she has mild cough. She has tried lozenges ROS All systems reviewed and are negative except as per history of present illness. Medications Home Meds Active Scripts Acetaminophen* (Tylenol*) 325 Mg Tablet, 2 TAB PO Q6 Y for PAIN AND OR ELEVATED TEMP, #20 TAB Prov:LAUREN VILLALOBOS PA-C 01/17/17 Loratadine* (Claritin*) 10 Mg Tablet, 10 MG PO DAILY, #30 TAB Prov:LAUREN VILLALOBOS PA-C 01/17/17 Ibuprofen* (Ibuprofen*) 600 Mg Tablet, 600 MG PO Q6 for 3 Days, TAB Prov:COLIN MARINO 09/29/16 Amoxicillin* (Amoxicillin*) 500 Mg Cap, 500 MG PO TID for 10 Days, CAP Prov:COLIN MARINO 09/29/16 Neomycin/Polymyxin/Hydrocort* (Cortisporin* Otic) 10 Ml Susp, 4 DROP RIGHT EAR QID for 7 Days, EA Prov:COLIN MARINO 09/29/16 Ondansetron (Ondansetron Odt) 4 Mg Tab.rapdis, 4 MG PO Q6H Y for NAUSEA AND/OR VOMITING, #10 TAB Prov:DANIEL KATZ 03/24/16 Hydrocodone/Acetaminophen (Bernice 5-325 Tablet) 1 Each Tablet, 1 TAB PO Q6H Y for PAIN, #20 TAB Prov:DANIEL KATZ 03/24/16 Reported Medications Aspirin (Low Dose Aspirin) 81 Mg Tablet., 81 MG PO DAILY, #30 TAB 01/11/16 Omeprazole* (Omeprazole*) 40 Mg Capsule.dr, 40 MG PO DAILY, #30 CAP 01/11/16 Sitagliptin* (Januvia*) 100 Mg Tablet, 100 MG PO DAILY, #30 TAB 01/11/16 Ranitidine Hcl* (Ranitidine Hcl*) 150 Mg Tablet, 150 MG PO HS, #30 TAB 01/11/16 Metoprolol Tartrate* (Lopressor*) 25 Mg Tablet, 25 MG PO DAILY, #60 TAB 01/11/16 Clonidine Hcl* (Clonidine Hcl*) 0.1 Mg Tab, 0.1 MG PO BID Y for ELEVATED BLOOD PRESSURE, TAB 01/11/16 Metformin Hcl* (Metformin Hcl*) 1,000 Mg Tablet, 1000 MG PO BID, #60 07/28/15 Insulin Regular, Human (Humulin R) 100 Units/Ml Vial, 0 SC 10AM 5PM MIDNIGHT, VIAL 07/28/15 Venlafaxine Hcl* (Venlafaxine Hcl ER*) 150 Mg Cap.er.24h, 150 MG PO DAILY, #30 07/28/15 Bupropion Hcl* (Bupropion Hcl*) 100 Mg Tablet, 100 MG PO TID, #90 07/28/15 Albuterol Sulfate* (Proair HFA*) 8.5 Gm Hfa.aer.ad, 1 PUFF PO Q4 Y for WHEEZING AND SOB, #9 07/28/15 Alprazolam* (Alprazolam*) 0.5 Mg Tablet, 0.5 MG PO QHS Y for ANXIETY, #60 07/28/15 Triazolam* (Triazolam*) 0.25 Mg Tablet, 0.25 MG PO QHS Y for SLEEP, #30 07/28/15 Lisinopril* (Lisinopril*) 20 Mg Tablet, 20 MG PO DAILY, #30 07/28/15 Allergies Allergies: Coded Allergies: No Known Allergy (Unverified , 03/24/16) PMhx/Soc History of Surgery: Yes (R wrist ganglion 1989, Bilat cataract September 2015, Cholecystectomny Jan 1981) Anesthesia Reaction: No Hx Neurological Disorder: No Hx Respiratory Disorders: Yes (asthma, current) Hx Cardiac Disorders: No Hx Psychiatric Problems: Yes (Depression) Hx Miscellaneous Medical Probl: Yes (DM,depression,pancolitis,rectal prolapse) Hx Alcohol Use: No Hx Substance Use: No Hx Tobacco Use: No Physical Exam Vitals Vital Signs Date Time Temp Pulse Resp B/P Pulse Ox O2 Delivery O2 Flow Rate FiO2 01/17/17 15:14 99.0 97 18 143/71 99 Physical Exam Const: [] Head: Atraumatic Eyes: Normal Conjunctiva ENT: Normal External Ears, Nose and Mouth. Neck: Full range of motion..~ No meningismus. Resp: Clear to auscultation bilaterally Cardio: Regular rate and rhythm, no murmurs Abd: Soft, non tender, non distended. Normal bowel sounds Skin: No petechiae or rashes Back: No midline or flank tenderness Ext: No cyanosis, or edema Neur: Awake and alert Psych: Normal Mood and Affect Procedures/MDM This is a 56-year-old female with diabetes type 2 presenting with pharyngitis likely viral. There is no evidence of strep pharyngitis, peritonsillar abscess , retropharyngeal abscess. Patient appears well and stable to be discharged home with prescription for Tylenol and Claritin Departure Diagnosis: Primary Impression: Sore throat Condition: Stable Patient Instructions: When You Have a Sore Throat, Self-Care for Sore Throats Referrals: CLEMENTINE SHAY (PCP) Additional Instructions: FOLLOW UP WITH YOUR PRIMARY CARE PHYSICIAN TOMORROW.Return to this facility if you are not improving as expected. Return to this facility if you are not improving as expected. LAUREN VILLALOBOS PA-C Jan 17, 2017 17:05
== END 2017-01-17 17:07 | disposition home or self-care (01) ==
LOC: FTE 15:08
DX: J02.9 Acute pharyngitis, unspecified (principal); E11.9 Type 2 diabetes mellitus without complications; Z79.4 Long term (current) use of insulin; Z79.82 Long term (current) use of aspirin; Z79.84 Long term (current) use of oral hypoglycemic drugs
CPT/HCPCS: 99283

== ENCOUNTER 2017-05-04 12:03 | Emergency (ER) | END 2017-05-04 12:47 | disposition home or self-care (01) ==

== ENCOUNTER 2017-05-06 12:28 | Emergency (ER) | END 2017-05-06 15:55 | disposition home or self-care (01) ==

== ENCOUNTER 2017-08-01 11:25 | Emergency (ER) | END 2017-08-01 13:23 | disposition home or self-care (01) ==

== ENCOUNTER 2017-11-05 00:39 | Emergency (ER) | END 2017-11-05 09:26 | disposition home or self-care (01) ==

== ENCOUNTER 2018-01-14 12:09 | Emergency (ER) | END 2018-01-14 15:20 | disposition home or self-care (01) ==

== ENCOUNTER 2018-02-03 18:01 | Emergency (ER) | END 2018-02-03 20:00 | disposition home or self-care (01) ==

== ENCOUNTER 2018-07-27 23:16 | Observation (INO) | payer OTHER ==
[~2018-07-27] VITALS: Ht 175.3 cm; Wt 114.1 kg
[~2018-07-27 23:16] MED LIST changes: +ACET325T33 PO; +ACET500C5 PO; +ADV25050 INHALATION; +ALBU2.5V3 NEB; -ALBU8.5H3 PO; +ALBU8.5H8 INH; +ALBU8.5H8 PO; -ASPI-664 PO; +ASPI81TA52 PO; +AZIT250T PO; +CEPH-443 PO; +CETI10CA PO; +CIPR500T4 PO; +DIPH1TAB PO; +FLUT9.9S NASAL; +HYDR-3980 PO; +HYDR-4011 PO; -HYDR-906 PO; +LISI-471 PO; -LISI20TA11 PO; +LORA-186 PO; -METF1000 PO; +METF100010 PO; +NITR-58 PO; +PHEN-537 PO; +PHEN-538 PO; +SITA100T11 PO; -SITA100T8 PO; -TRIA0.2526 PO; +TRIA0.2579 PO
--- NOTE | 2018-07-27 23:52 | ERD ---
ER Documentation Chief Complaint Chief Complaint V/D HPI The patient is a 57-year-old female, presenting to the ER because of persistent diarrhea for the last 3 weeks, complains of nausea but no vomiting, complains of diffuse abdominal pain intermittently for the last 3 weeks, denies hematemesis/hematochezia, fever, chills, neck pain, chest pain, dyspnea, dysuria. She does not smoke nor drink Past medical history: IBS, diabetes mellitus, hypertension, depression, anxiety, asthma, insomnia Past surgical history: Cholecystectomy, left knee meniscus ROS All systems reviewed and are negative except as per history of present illness. Medications Home Meds Active Scripts Salmeterol Xinaf/Fluticasone* (Advair*) 250-50 Diskus Inhaler, 1 INH INHALATION BID, #1 INHALER Prov:ELVI ADAMS MD 05/06/17 Albuterol Sulfate* (Proair HFA*) 8.5 Gm Hfa.aer.ad, 2 PUFF INH Q4, #1 INHALER Prov:ELVI ADAMS MD 05/06/17 Reported Medications Meloxicam* (Meloxicam*) 7.5 Mg/5 Ml Oral.susp, 15 MG PO DAILY, #300 ML 07/28/18 Pregabalin* (Lyrica*) 100 Mg Capsule, 100 MG PO TID, CAP 07/28/18 Ferrous Sulfate* (Ferrous Sulfate*) 325 Mg Tabec, PO DAILY, TAB 07/28/18 Ranitidine Hcl* (Zantac*) 300 Mg Tablet, 300 MG PO HS, #30 TAB 07/28/18 Dicyclomine HCl (Dicyclomine HCl) 10 Mg Capsule, 10 MG PO TID 07/28/18 Venlafaxine Hcl* (Venlafaxine Hcl*) 75 Mg Tablet, 75 MG PO DAILY, TAB 07/28/18 Aspirin (Low Dose Aspirin) 81 Mg Tablet.dr, 81 MG PO DAILY, #30 TAB 01/11/16 Omeprazole* (Omeprazole*) 40 Mg Capsule.dr, 40 MG PO DAILY, #30 CAP 01/11/16 Sitagliptin* (Januvia*) 100 Mg Tablet, 100 MG PO DAILY, #30 TAB 01/11/16 Ranitidine Hcl* (Ranitidine Hcl*) 150 Mg Tablet, 150 MG PO HS, #30 TAB 01/11/16 Metoprolol Tartrate* (Lopressor*) 25 Mg Tablet, 25 MG PO DAILY, #60 TAB 01/11/16 Clonidine Hcl* (Clonidine Hcl*) 0.1 Mg Tab, 0.1 MG PO DAILY, TAB 01/11/16 Metformin Hcl* (Metformin Hcl*) 1,000 Mg Tablet, 1000 MG PO BID, #60 07/28/15 Insulin Regular, Human (Humulin R) 100 Units/Ml Vial, 0 SC 10AM 5PM MIDNIGHT, VIAL 07/28/15 Bupropion Hcl* (Bupropion Hcl*) 100 Mg Tablet, 100 MG PO BID, #90 07/28/15 Alprazolam* (Alprazolam*) 0.5 Mg Tablet, 0.5 MG PO BID, #60 07/28/15 Triazolam* (Triazolam*) 0.25 Mg Tablet, 0.25 MG PO QHS PRN for SLEEP, #30 07/28/15 Lisinopril* (Lisinopril*) 20 Mg Tablet, 20 MG PO DAILY, #30 07/28/15 Discontinued Reported Medications Venlafaxine Hcl* (Venlafaxine Hcl ER*) 150 Mg Cap.er.24h, 150 MG PO DAILY, #30 07/28/15 Albuterol Sulfate* (Proair HFA*) 8.5 Gm Hfa.aer.ad, 1 PUFF PO Q4 PRN for WHEEZING AND SOB, #9 07/28/15 Discontinued Scripts Phenazopyridine Hcl* (Pyridium*) 200 Mg Tab, 200 MG PO TID PRN for URINARY PAIN, #6 TAB Prov:CHANEL ABREU MD 02/03/18 Cephalexin* (Keflex*) 500 Mg Capsule, 500 MG PO BID for 7 Days, CAP Prov:CHANEL ABREU MD 02/03/18 Hydrocodone/Acetaminophen ([place] 5-325 Tablet) 1 Each Tablet, 1 TAB PO Q6H PRN for PAIN, #12 TAB Prov:RO WOOTEN PA-C 01/14/18 Ciprofloxacin Hcl* (Ciprofloxacin Hcl*) 500 Mg Tablet, 500 MG PO BID for 5 Days, TAB Prov:CHEY JENKINS DO 11/05/17 Hydrocodone/Acetaminophen ([place] 10-325 Tablet) 1 Each Tablet, 1 TAB PO Q6H PRN for PAIN, #7 TAB Prov:BHARATERICASHWETA BISWASS A. DO 11/05/17 Ondansetron (Ondansetron Odt) 4 Mg Tab.rapdis, 4 MG PO Q6H PRN for NAUSEA AND/OR VOMITING, #10 TAB Prov:BHARATERICAZULAYTHUSTOLOS A. DO 11/05/17 Diphenoxylate HCl/Atropine (Lomotil 2.5-0.025 mg Tablet) 1 Each Tablet, 1 TAB PO QID PRN for DIARRHEA, #10 TAB Prov:THU JENKINSSTOLOS A. DO 11/05/17 Phenazopyridine Hcl* (Pyridium*) 100 Mg Tab, 100 MG PO TID PRN for URINARY PAIN, #6 TAB Prov:TOMMY BRYAN [employer] 08/01/17 Nitrofurantoin Monohyd Macrocr* (Macrobid*) 100 Mg Capsr, 100 MG PO BID for 7 Da ys, CAP Prov:TOMMY BRYAN [employer] 08/01/17 Albuterol Sulfate* (Albuterol Sulfate* Neb) 0.083%-3 Ml Neb, 2.5 MG NEB Q4 PRN for SHORTNESS OF BREATH, #30 EA Prov:ELVI ADAMS MD 05/06/17 Azithromycin* (Zithromax*) 250 Mg Tablet, 250 MG PO .ZPACK DIRECTED, #6 TAB TAKE 500 MG (2 TABS) THE FIRST DAY THEN 250 MG (1 TAB) DAYS 2-5 Prov:RO WOOTEN PA-C 05/04/17 Acetaminophen* (Tylophen*) 500 Mg Capsule, 1 CAP PO Q6H PRN for PAIN AND OR ELEVATED TEMP, #30 CAP Prov:RO WOOTEN PA-C 05/04/17 Ibuprofen* (Motrin*) 600 Mg Tab, 600 MG PO Q6, #30 TAB Prov:RO WOOTEN PA-C 05/04/17 Cetirizine Hcl* (Zyrtec*) 10 Mg Capsule, 10 MG PO DAILY, #14 TAB.CHEW Prov:RO WOOTEN PA-C 05/04/17 Fluticasone Propionate (Flonase Allergy Relief) 9.9 Ml [place].susp, 2 SPRAY NASAL DAILY, #1 BOTTLE TO EACH NOSTRIL Prov:RO WOOTEN PA-C 05/04/17 Acetaminophen* (Tylenol*) 325 Mg Tablet, 2 TAB PO Q6 PRN for PAIN AND OR ELEVATED TEMP, #20 TAB Prov:LAUREN VILLALOBOS PA-C 01/17/17 Loratadine* (Claritin*) 10 Mg Tablet, 10 MG PO DAILY, #30 TAB Prov:LAUREN VILLALOBOS PA-C 01/17/17 Ibuprofen* (Ibuprofen*) 600 Mg Tablet, 600 MG PO Q6 for 3 Days, TAB Prov:COLIN MARINO 09/29/16 Amoxicillin* (Amoxicillin*) 500 Mg Cap, 500 MG PO TID for 10 Days, CAP Prov:COLIN MARINO 09/29/16 Neomycin/Polymyxin/Hydrocort* (Cortisporin* Otic) 10 Ml Susp, 4 DROP RIGHT EAR QID for 7 Days, EA Prov:COLIN MARINO 09/29/16 Ondansetron (Ondansetron Odt) 4 Mg Tab.rapdis, 4 MG PO Q6H PRN for NAUSEA AND/OR VOMITING, #10 TAB Prov:DANIEL KATZ 03/24/16 Hydrocodone/Acetaminophen ([place] 5-325 Tablet) 1 Each Tablet, 1 TAB PO Q6H PRN for PAIN, #20 TAB Prov:DANIEL KATZ. 03/24/16 Allergies Allergies: Coded Allergies: No Known Allergy (Unverified , 01/14/18) PMhx/Soc History of Surgery: Yes (CHOLECYSTECTOMY,MINISCUS REMOVAL LEFT KNEE,BREAST BX) Anesthesia Reaction: No Hx Neurological Disorder: No Hx Respiratory Disorders: Yes (ASTHMA) Hx Cardiac Disorders: Yes (HTN) Hx Psychiatric Problems: Yes (INSOMNIA,DEPRESSION) Hx Miscellaneous Medical Probl: Yes (DM,IBS) Hx Alcohol Use: No Hx Substance Use: No Hx Tobacco Use: No Physical Exam Vitals Vital Signs Date Temp Pulse Resp B/P (MAP) Pulse Ox O2 O2 Flow FiO2 Time Delivery Rate 07/27/18 97.8 85 16 162/74 95 23:32 (103) Physical Exam Const: No acute distress. Head: Atraumatic. Eyes: Normal Conjunctiva. ENT: Normal External Ears, Nose and Mouth. Neck: Full range of motion. No meningismus. Resp: Clear to auscultation bilaterally. Cardio: Regular rate and rhythm. Abd: Soft, non distended, normal bowel sounds, diffuse abdominal mild tenderness, no rigidity, rebound, CVA tenderness Skin: No petechiae or rashes. Back: No midline or flank tenderness. Ext: No cyanosis, or edema. Neur: Awake and alert. No focal deficit Psych: Normal Mood and Affect. Result Diagram: 07/28/18 0737 07/28/18 0737 Results 24 hrs Laboratory Tests Test 07/27/18 23:36 07/28/18 00:05 07/28/18 00:07 07/28/18 01:00 Bedside Glucose 70 mg/dL 39 mg/dL White Blood Count 15.6 10^3/ul Red Blood Count 4.95 10^6/ul Hemoglobin 13.1 g/dl Hematocrit 43.0 % Mean Corpuscular 86.9 fl Volume Mean Corpuscular 26.5 pg Hemoglobin Mean Corpuscular 30.5 g/dl Hemoglobin Concent Red Cell Distribution 15.9 % Width Platelet Count 299 10^3/UL Mean Platelet Volume 9.6 fl Immature Granulocytes 0.600 % % Neutrophils % 56.3 % Lymphocytes % 30.4 % Monocytes % 5.1 % Eosinophils % 7.0 % Basophils % 0.6 % Nucleated Red Blood 0.0 /100WBC Cells % Immature Granulocytes 0.100 10^3/ul # Neutrophils # 8.8 10^3/ul Lymphocytes # 4.8 10^3/ul Monocytes # 0.8 10^3/ul Eosinophils # 1.1 10^3/ul Basophils # 0.1 10^3/ul Nucleated Red Blood 0.0 10^3/ul Cells # Sodium Level 143 mmol/L Potassium Level 4.6 mmol/L Chloride Level 105 mmol/L Carbon Dioxide Level 24 mmol/L Anion Gap 14 Blood Urea Nitrogen 22 mg/dl Creatinine 0.98 mg/dl Est Glomerular 58 mL/min Filtrat Rate mL/min Glucose Level 58 mg/dl Calcium Level 9.9 mg/dl Total Bilirubin 0.1 mg/dl Direct Bilirubin 0.00 mg/dl Indirect Bilirubin 0.1 mg/dl Aspartate Amino 26 IU/L Transf (AST/SGOT) Alanine 19 IU/L Aminotransferase (ALT /SGPT) Alkaline Phosphatase 104 IU/L Total Protein 7.9 g/dl Albumin 4.4 g/dl Globulin 3.50 g/dl Albumin/Globulin 1.25 Ratio Lipase 79 U/L Bedside Urine pH 5.5 (LAB) Bedside Urine Protein Negative (LAB) Bedside Urine Glucose Negative (UA) Bedside Urine Ketones Negative (LAB) Bedside Urine Blood Trace-intact Bedside Urine Nitrite Negative (LAB) Bedside Urine 1+ Leukocyte Esterase (L Test 07/28/18 01:22 07/28/18 02:46 Bedside Glucose 47 mg/dL 70 mg/dL Current Medications Medications Dose Sig/Lino Start Time Status Last (Trade) Ordered Route PRN Stop Time Admin Dose Reason Admin Morphine 2 mg ONCE STAT 07/27/18 DC 07/28/18 Sulfate IV 23:57 07/27/18 00:12 (morphine) 23:59 Ondansetron 4 mg ONCE STAT 07/27/18 DC 07/28/18 HCl (Zofran IV 23:57 07/27/18 00:12 Inj) 23:59 Loperamide 4 mg ONCE ONCE 07/28/18 DC 07/28/18 HCl PO 00:00 07/28/18 00:12 (Imodium Cap) 00:01 Dextrose 50 ml STK-MED 07/28/18 DC (D50w ONCE .ROUTE 01:02 07/28/18 Syringe) 01:03 Ceftriaxone 50 ml @ ONCE ONCE 07/28/18 DC 07/28/18 Sodium 100 mls/hr IVPB 02:00 07/28/18 02:11 02:29 Procedures/MDM [place] [id number] Radiology Main Line: [phone] DIAGNOSTIC IMAGING REPORT Patient: LAYA LORENZO : 1960 Age: 57 Sex: F MR #: [id number] DOS: 07/28/18 0136 Ordering MD: CHRIST GANNON MD Location: E/R Room/Bed: PROCEDURE: CT ABDOMEN/PELVIS WITHOUT CONTRAST CLINICAL INDICATION: 57-year-old female with abdominal pain and nausea. TECHNIQUE: The study was performed utilizing a [email or web address] 64-slice CT scanner. Direct axial sections were obtained through the abdomen and pelvis without the use of intravenous contrast material. Sagittal and coronal reform ations were obtained. One or more of the following dose reduction techniques were utilized: automated exposure control, adjustment of the mA and/or kV according to patient's size, use of iterative reconstruction technique. DICOM images are available. The images were reviewed on a PACS workstation. CTD/vol = 20.98 mGy; Total Exam DLP = 1317.52 mGy.cm. COMPARISON: CT abdomen/pelvis November 05, 2017. FINDINGS: There is partially visualized mild scarring/chronic atelectasis within the me dial aspect of the right middle lobe and lingula. There is no evidence for significant pleural effusion. The liver has a normal size and contour without focal areas of abnormal density. No intrahepatic nor extrahepatic biliary ductal dilatation is seen. Surgical clips are seen within the gallbladder fossa from prior cholecystectomy. The pancreas is without areas of abnormal attenuation. The spleen is identified and has a normal size with a ill-defined hypodense focus within the inferior aspect of the spleen measuring approximately 1.8 x 1.5 x 2.0 cm without significant change. The adrenal glands are unremarkable. The kidneys are without abnormal density. No hydroureteronephrosis nor nephr oureterolithiasis is evident. The urinary bladder contains urine. The stomach is markedly distended and contains particular material. There are mildly dilated loops of fluid-filled small bowel but without evidence for transition point. The colon is distended with stool and air. Multiple diverticul a seen within the sigmoid colon without surrounding inflammatory changes. The appendix is not visualized however there are no periappendiceal inflammatory changes. The uterus is anteflexed. There is no significant pelvic free fluid. Phleboliths are seen within the pelvis. The aortoiliac vessels are diffusely calcified but without aneurysmal dilatation. Mild degenerative changes are seen within the spine. IMPRESSION: 1. Status post cholecystectomy. 2. Distended stomach containing particular material. 3. Mildly dilated fluid-filled loops of small bowel with distended air and stool filled colon without obstruction. Etiologies include enterocolitis, inflammatory bowel disease. 4. Sigmoid diverticulosis. 5. Small ovoid hypodense focus within the inferior aspect of the spleen without significant interval change. This may represent a hemangioma. 6. Vascular calcifications. 7. Mild degenerative changes within the spine. .Ranjit Stevens MD, Date Time Electronically viewed and signed by .Ranjit Stevens MD, on 07/28/2018 03:04 .M/ CC: CHRIST GANNON MD [id number] MEDICAL MAKING DECISION: The patient is a 57-year-old female, presenting with acute cystitis, acute hypoglycemia, acute enterocolitis, acute diarrhea. She was treated with morphine 2 mg IV for pain, Zofran 4 mg IV for nausea, Imodium 4 mg p.o. for diarrhea, Rocephin 1 g IV and Flagyl 500 IV with good response acute cystitis and acute enterocolitis. Her glucose drop to 39 even after eating and she did not want to eat too much because her IBS did not allow her. She was therefore treated with D10 water at 100 mm/h for acute hypoglycemia. The differential diagnoses considered include but are not limited to choledocholithiasis, cholangitis, pancreatitis, hepatitis, gastritis, peptic ulcer disease, gastric ulcer, appendicitis, cystitis, diverticulitis, partial small bowel obstruction. Departure Diagnosis: Primary Impression: Enterocolitis Additional Impressions: UTI (urinary tract infection) Hypoglycemia Condition: Stable Comments I discussed the findings with the patient. I discussed the patient with the hospitalist Dr Rendon at 3:20 am . who was made aware of the lab, the treatment, the patient condition. The patient is admitted to [facility] Disclaimer: Inadvertent spelling and grammatical errors are likely due to EHR/dictation software use and do not reflect on the overall quality of patient care. Also, please note that the electronic time recorded on this note does not necessarily reflect the actual time of the patient encounter. CHRIST GANNON MD Jul 27, 2018 23:52
[2018-07-27] MEDS ORDERED: morphine 2 MG INJ IV STA (23:57)
[2018-07-27] MEDS ORDERED: ONDANSETRON 4 MG INJ IV STA (23:57)
[2018-07-28] VITALS (9 sets, daily range): BP systolic 111–143; BP diastolic 59–65; PULSE 71–95; RESP 19–22; Ht 175.3 cm; Wt 114.1 kg
[2018-07-28] MEDS ORDERED: LOPERAMIDE 2 MG CAP PO ONE
[2018-07-28] MEDS ORDERED: DEXTROSE 50% 50 ML SYRINGE ONE (01:02)
[2018-07-28] MEDS ORDERED: CEFTRIAXONE 1 GM/50 ML (PMX) 50 ML IVPB ONE (02:00)
[2018-07-28] MEDS ORDERED: VENL75TA PO (02:29)
[2018-07-28] MEDS ORDERED: metroNIDAZOLE 500 MG/NS (PMX) 100 ML IVPB ONE (03:30)
[2018-07-28] MEDS: DEXTROSE 10% 1,000 ML IV SCH ×2 (03:54→13:30)
[2018-07-28] MEDS ORDERED: RANI300T3 PO (05:06)
[2018-07-28] MEDS ORDERED: FER325 PO (05:06)
[2018-07-28] MEDS ORDERED: DICY10CA40 PO (05:06)
[2018-07-28] MEDS ORDERED: LYRI100 PO (05:06)
[2018-07-28] MEDS ORDERED: MELO7.5O PO (05:06)
[2018-07-28] MEDS ORDERED: morphine 2 MG INJ IV PRN (06:30)
[2018-07-28] MEDS ORDERED: NON-FORMULARY/PATIENT OWN MED (Triazolam* 0.25 MG) PO PRN (06:30)
[2018-07-28] MEDS ORDERED: ONDANSETRON 4 MG INJ IV PRN (06:30)
[2018-07-28] MEDS: LEVOFLOXACIN 500MG/D5W (PMX) 100 ML IVPB SCH ×2 (06:30→07:43)
[2018-07-28] MEDS ORDERED: ACETAMINOPHEN 325 MG TAB PO PRN (06:30)
[2018-07-28] MEDS ORDERED: GLUCAGON 1 MG INJ IM PRN (07:00)
[2018-07-28] MEDS ORDERED: DEXTROSE 50% 50 ML SYRINGE IV PRN ×2 (07:00)
[2018-07-28] MEDS ORDERED: GLUCOSE GEL 15 GRAM TUBE BUCCAL PRN (07:00)
[2018-07-28] MEDS ORDERED: GLUCOSE GEL 15 GRAM TUBE PO PRN ×2 (07:00)
[2018-07-28] MEDS: INSULIN ASPART [NOVOLOG] 3 ML PEN SC SCH ×5 (07:55→20:35)
[2018-07-28] MEDS ORDERED: NON-FORMULARY/PATIENT OWN MED (Meloxicam* 15 MG) PO SCH (09:00)
[2018-07-28] MEDS ORDERED: NON-FORMULARY/PATIENT OWN MED (Omeprazole* 40 MG) PO SCH (09:00)
[2018-07-28] MEDS ORDERED: NON-FORMULARY/PATIENT OWN MED (Salmeterol Xinaf/Fluticasone* (Advair*) 1 INH) INHALATION SCH (09:00)
[2018-07-28] MEDS ORDERED: PREGABALIN 100 MG CAP PO SCH (09:00)
[2018-07-28] MEDS: ALBUTEROL HFA 8 GM INHALER INH SCH ×4 (09:00→20:37)
[2018-07-28] MEDS ORDERED: metFORMIN 500 MG TAB PO SCH (09:00)
[2018-07-28] MEDS: LEVOFLOXACIN 500 MG TAB PO SCH (09:04)
[2018-07-28] MEDS: FERROUS SULFATE (EC) 325 MG TAB PO SCH (09:04)
[2018-07-28] MEDS: PANTOPRAZOLE (EC) 40 MG TAB PO SCH (09:05)
[2018-07-28] MEDS: BUPROPION 100 MG TAB PO SCH ×2 (09:05→20:36)
[2018-07-28] MEDS: ASPIRIN (EC) 81 MG TAB PO SCH (09:05)
[2018-07-28] MEDS: METOPROLOL 25 MG TAB PO SCH (09:05)
[2018-07-28] MEDS: VENLAFAXINE 75 MG TABLET PO SCH (09:05)
[2018-07-28] MEDS: DICYCLOMINE 10 MG CAP PO SCH ×3 (09:05→20:37)
[2018-07-28] MEDS: LISINOPRIL 20 MG TAB PO SCH (09:06)
[2018-07-28] MEDS: ALPRAZOLAM 0.5 MG TAB PO SCH ×2 (09:10→20:36)
[2018-07-28] MEDS: FLUTICASONE/VILANTEROL 100-25 INH SCH (11:59)
[2018-07-28] MEDS ORDERED: PREGABALIN 50 MG CAP PO SCH (12:00)
[2018-07-28] MEDS: MELOXICAM 15 MG TAB PO SCH (12:15)
[2018-07-28] MEDS: DEXTROSE 5% 1,000 ML IV SCH (13:11)
--- NOTE | 2018-07-28 13:45 | HP ---
Date/Time of Note Date/Time of Note DATE: 07/28/18 TIME: 13:37 Assessment/Plan VTE Prophylaxis Risk score (from Nsg)>0 risk: 1 SCD applied (from Nsg): Yes Pharmacological prophylaxis: NA/contraindicated Pharm contraindication: low risk/ambulating Lines/Catheters IV Catheter Type (from Nrsg): Peripheral IV Urinary Cath still in place: No Assessment/Plan Assessment/Plan 69-year-old female with: 1. Diarrhea, for 3 weeks, in setting of known IBS, CAT scan also showing possible enterocolitis versus IBS. Given her elevated WBC, patient was started on Levaquin and Flagyl which is to be continued. Stool study was reordered this morning including C. difficile. She is having some nausea but tolerating clear liquids, will advance to full liquid. Continue current Bentyl, if stool studies negative could get Imodium as needed. Patient having some abdominal cramping, pain control with morphine as needed. 2. Hypoglycemia, in setting of insulin requiring diabetes mellitus. Metformin and Januvia has been discontinued on admission. Of subcu insulin also. On D10 drip which will be switched to D5 and hopefully subsequently discontinued if blood sugars remain stable to be elevated. On sliding scale insulin for now. 3. Diabetic neuropathy: Resume Lyrica, patient reports she is dose 100 mg twice daily. 4. Hypertension: Continue home medications 5. Major depressive disorder/anxiety disorder: Continue home medications 6. GERD: Continue PPI 7. Asthma: Continue inhalers, Advair had to be substituted with Brio Ellipta, continue pro-air as needed. Prophylaxis: SCDs/ambulation for DVT prophylaxis, Protonix for GI prophylaxis, will add probiotics. Disposition: Currently on observation, to remain on IV fluids, tapering of D10 to D5 and hopefully completely off in the next 24 hours. Also awaiting for stool studies while on antibiotics. Result Diagram: 07/28/18 0737 07/28/18 0737 Results 24hrs Laboratory Tests Test 07/27/18 23:36 07/28/18 00:05 07/28/18 00:07 07/28/18 01:00 Bedside Glucose 70 39 *L White Blood Count 15.6 H Red Blood Count 4.95 Hemoglobin 13.1 Hematocrit 43.0 Mean Corpuscular 86.9 Volume Mean Corpuscular 26.5 L Hemoglobin Mean Corpuscular 30.5 L Hemoglobin Concent Red Cell Distribution 15.9 H Width Platelet Count 299 Mean Platelet Volume 9.6 Immature Granulocytes 0.600 H % Neutrophils % 56.3 Lymphocytes % 30.4 Monocytes % 5.1 Eosinophils % 7.0 Basophils % 0.6 Nucleated Red Blood 0.0 Cells % Immature Granulocytes 0.100 H # Neutrophils # 8.8 H Lymphocytes # 4.8 H Monocytes # 0.8 Eosinophils # 1.1 H Basophils # 0.1 Nucleated Red Blood 0.0 Cells # Sodium Level 143 Potassium Level 4.6 Chloride Level 105 Carbon Dioxide Level 24 Anion Gap 14 H Blood Urea Nitrogen 22 H Creatinine 0.98 Est Glomerular 58 L Filtrat Rate mL/min Glucose Level 58 L Calcium Level 9.9 Total Bilirubin 0.1 L Direct Bilirubin 0.00 Indirect Bilirubin 0.1 Aspartate Amino 26 Transf (AST/SGOT) Alanine 19 Aminotransferase (ALT /SGPT) Alkaline Phosphatase 104 Total Protein 7.9 Albumin 4.4 Globulin 3.50 H Albumin/Globulin 1.25 Ratio Lipase 79 Bedside Urine pH 5.5 (LAB) Bedside Urine Protein Negative (LAB) Bedside Urine Glucose Negative (UA) Bedside Urine Ketones Negative (LAB) Bedside Urine Blood Trace-intact H Bedside Urine Nitrite Negative (LAB) Bedside Urine 1+ H Leukocyte Esterase (L Test 07/28/18 01:22 07/28/18 02:46 07/28/18 03:50 07/28/18 05:27 Bedside Glucose 47 *L 70 81 128 Test 07/28/18 07:37 07/28/18 07:53 07/28/18 12:01 White Blood Count 13.9 H Red Blood Count 4.55 Hemoglobin 12.2 Hematocrit 39.8 Mean Corpuscular 87.5 Volume Mean Corpuscular 26.8 L Hemoglobin Mean Corpuscular 30.7 L Hemoglobin Concent Red Cell Distribution 15.9 H Width Platelet Count 275 Mean Platelet Volume 9.7 Immature Granulocytes 0.500 H % Neutrophils % 60.5 Lymphocytes % 25.4 Monocytes % 5.4 Eosinophils % 7.6 H Basophils % 0.6 Nucleated Red Blood 0.0 Cells % Immature Granulocytes 0.070 H # Neutrophils # 8.4 H Lymphocytes # 3.5 H Monocytes # 0.8 Eosinophils # 1.1 H Basophils # 0.1 Nucleated Red Blood 0.0 Cells # Sodium Level 144 Potassium Level 4.4 Chloride Level 108 Carbon Dioxide Level 26 Anion Gap 10 Blood Urea Nitrogen 20 Creatinine 1.02 H Est Glomerular 56 L Filtrat Rate mL/min Glucose Level 149 # Hemoglobin A1c 7.0 H Calcium Level 9.5 Phosphorus Level 4.2 Magnesium Level 2.0 Triglycerides Level 292 H Cholesterol Level 164 LDL Cholesterol, 82 Calculated HDL Cholesterol 24 L Cholesterol/HDL Ratio 6.8 Bedside Glucose 131 206 HPI/ROS Admit Date/Time Admit Date/Time Jul 28, 2018 at 03:21 Hx of Present Illness Chief complaint: Diarrhea and low blood sugars History of presenting illness: This is a 57-year-old female with history of irritable bowel syndrome, diabetes mellitus with diabetic neuropathy, hypertension, asthma, MDD/anxiety disorder who presented the emergency department with 3 weeks of diarrhea and now hypoglycemia. Patient was found to have a blood sugar of 39 while in the emergency department, she had to be started on a D10 drip. She has been off her metformin and Januvia for 24 hours prior to presentation but was still taking her subcu insulin. She is reporting cramping and diarrhea for the past 3 weeks which she attributed to her IBS after eating some fried zucchini. CAT scan of the abdomen and pelvis in the ER did report enterocolitis, WBC was slightly elevated, stool studies are still pending including C. difficile, patient has been maintained on IV antibiotics Flagyl and Levaquin. She is still having some nausea while on clear liquids, will try full liquid. Her diarrhea seems to have improved this morning but again having liquid stools this afternoon per patient. She remains afebrile, blood sugar is improved this afternoon therefore we are switching to D5 drip with hopefully of D5 in the next 24 hours. All her hypoglycemic agents were discontinued or held since admission. She denies any hematochezia or hematemesis. She is followed by endocrinology, Dr. Garay as an outpatient, she did have a GI doctor in the past but has not had a new one after changing her insurance. ROS Constitutional: no complaints Eyes: no complaints Respiratory: no complaints Cardiovascular: no complaints Gastrointestinal: pain (Diffuse cramping), diarrhea, nausea Genitourinary: no complaints Musculoskeletal: no complaints Skin: no complaints Neurologic: no complaints Endocrine: no complaints Lymphatic: no complaints Psychological: no complaints Immunologic: no complaints PMH/Family/Social Past Medical History Irritable bowel syndrome GERD MDD/Anxiety disorder Hypertension Diabetes mellitus Diabetic neuropathy Asthma Medications Current Medications Dextrose 1,000 ml @ 100 mls/hr Q10H IV Last administered on 07/28/18at 03:54; Admin Dose 100 MLS/HR; Start 07/28/18 at 03:30; Stop 07/28/18 at 14:00 Morphine Sulfate (morphine) 2 mg Q4H PRN IV SEVERE PAIN LEVEL 7-10 Last administered on 07/28/18at 06:57; Admin Dose 2 MG; Start 07/28/18 at 06:30 Ondansetron HCl (Zofran Inj) 4 mg Q4H PRN IV NAUSEA AND/OR VOMITING; Start 07/28/18 at 06:30 Acetaminophen (Tylenol Tab) 650 mg Q4H PRN PO MILD PAIN(1-3)OR ELEVATED TEMP; Start 07/28/18 at 06:30 Dextrose 1,000 ml @ 75 mls/hr [id number] IV Last administered on 07/28/18at 13:11; Admin Dose 75 MLS/HR; Start 07/28/18 at 14:00 Metronidazole 100 ml @ 100 mls/hr Q8 IVPB ; Start 07/28/18 at 14:00 Insulin Aspart (Novolog Insulin Pen) NOVOLOG *MILD* ALGORITHM WITH MEALS BEDTIME SC ; Start 07/28/18 at 07:55 Diagnostic Test (Pha) (Accu-Chek) 1 ea 02 XX ; Start 07/29/18 at 02:00 Albuterol (Ventolin Hfa) 2 puff Q4H RESP THERAPY INH Last administered on 07/28/18at 13:11; Admin Dose 2 PUFF; Start 07/28/18 at 09:00 Alprazolam (Xanax) 0.5 mg BID PO Last administered on 07/28/18 09:10; Admin Dose 0.5 MG; Start 07/28/18 at 09:00 Aspirin (Halfprin) 81 mg DAILY PO Last administered on 07/28/18 09:05; Admin Dose 81 MG; Start 07/28/18 at 09:00 Bupropion HCl (Wellbutrin) 100 mg BID PO Last administered on 07/28/18at 09:05; Admin Dose 100 MG; Start 07/28/18 at 09:00 Dicyclomine HCl (Bentyl) 10 mg TID PO Last administered on 07/28/18at 12:03; Admin Dose 10 MG; Start 07/28/18 at 09:00 Ferrous Sulfate (Ferrous Sulfate (Ec)) 650 mg DAILY PO Last administered on 07/28/18at 09:04; Admin Dose 650 MG; Start 07/28/18 at 09:00 Lisinopril (Zestril) 20 mg DAILY PO Last administered on 07/28/18at 09:06; Admin Dose 20 MG; Start 07/28/18 at 09:00 Metoprolol Tartrate (Lopressor) 25 mg DAILY PO Last administered on 07/28/18at 09:05; Admin Dose 25 MG; Start 07/28/18 at 09:00 Venlafaxine HCl (Effexor) 75 mg DAILY PO Last administered on 07/28/18at 09:05; Admin Dose 75 MG; Start 07/28/18 at 09:00 Miscellaneous Information 1 ea NOTE XX ; Start 07/28/18 at 07:00 Glucose (Glutose) 15 gm Q15M PRN PO DECREASED GLUCOSE; Start 07/28/18 at 07:00 Glucose (Glutose) 22.5 gm Q15M PRN PO DECREASED GLUCOSE; Start 07/28/18 at 07:00 Dextrose (D50w Syringe) 25 ml Q15M PRN IV DECREASED GLUCOSE; Start 07/28/18 at 07:00 Dextrose (D50w Syringe) 50 ml Q15M PRN IV DECREASED GLUCOSE; Start 07/28/18 at 07:00 Glucagon (Glucagen) 1 mg Q15M PRN IM DECREASED GLUCOSE; Start 07/28/18 at 07:00 Glucose (Glutose) 15 gm Q15M PRN BUCCAL DECREASED GLUCOSE; Start 07/28/18 at 07:00 Levofloxacin (Levaquin) 500 mg DAILY@06 PO Last administered on 07/28/18at 09:04; Admin Dose 500 MG; Start 07/28/18 at 08:30 Pantoprazole (Protonix Tab) 40 mg DAILY@06 PO Last administered on 07/28/18at 09:05; Admin Dose 40 MG; Start 07/28/18 at 08:30 Zolpidem Tartrate (Ambien) 5 mg HS MAY REPEAT X 1 PRN PO INSOMNIA; Start 07/28/18 at 10:00 Meloxicam (Mobic) 15 mg DAILY PO Last administered on 07/28/18at 12:15; Admin Dose 15 MG; Start 07/28/18 at 11:00 Fluticasone/ Vilanterol (Breo Ellipta 100-25 Mcg Inh) 1 inh DAILY INH Last administered on 07/28/18at 11:59; Admin Dose 1 INH; Start 07/28/18 at 11:00 Miscellaneous Information Patients own medicat... BID@10,16 XX ; Start 07/28/18 at 16:00 Pregabalin (Lyrica) 100 mg BID PO ; Start 07/28/18 at 21:00 Coded Allergies: No Known Allergy (Unverified , 01/14/18) Past Surgical History Left knee surgery remotely . Cholecystectomy remotely Bilateral cataract removal remotely Right wrist ganglion removal remotely Past Surgical Hx: other Family History Significant Family History: diabetes, hypertension Social History Alcohol Use: none Smoking Status: Former smoker Drug Use: none Exam/Review of Systems Vital Signs Vitals Vital Signs Date Temp Pulse Resp B/P (MAP) Pulse Ox O2 O2 Flow FiO2 Time Delivery Rate 07/28/18 81 12:12 07/28/18 97.8 22 134/62 96 Room Air 11:58 (86) 07/28/18 2.0 28 10:00 Intake and Output 07/27/18 07/27/18 07/28/18 1515:00 23:00 07:00 IntakeIntake Total 200 ml BalanceBalance 200 ml Exam Constitutional: alert, oriented, well developed, other (obese ) Psych: no complaints Respiratory: clear to auscultation, normal air movement, other (no wheezes ) Cardiovascular: regular rate and rhythm, nl pulses Gastrointestinal: soft, tender (mild diffusely ) Musculoskeletal: nl extremities to inspection, nl gait and stance Extremities: normal pulses, other (no edema, clubbing or cyanosis ) 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 TECHNIQUE: The study was performed utilizing a [employer] VCT 64-slice CT scanner. Direct axial sections were obtained through the abdomen and pelvis without the use of intravenous contrast material. Sagittal and coronal reformations were obtained. One or more of the following dose reduction techniques were utilized: automated exposure control, adjustment of the mA and/or kV according to patient's size, use of iterative reconstruction technique. DICOM images are available. The images were reviewed on a PACS workstation. CTD/vol = 20.98 mGy; Total Exam DLP = 1317.52 mGy.cm. COMPARISON: CT abdomen/pelvis November 05, 2017. FINDINGS: There is partially visualized mild scarring/chronic atelectasis within the medial aspect of the right middle lobe and lingula. There is no evidence for significant pleural effusion. The liver has a normal size and contour without focal areas of abnormal density. No intrahepatic nor extrahepatic biliary ductal dilatation is seen. Surgical clips are seen within the gallbladder fossa from prior cholecystectomy. The pancreas is without areas of abnormal attenuation. The spleen is identified and has a normal size with a ill-defined hypodense focus within the inferior aspect of the spleen measuring approximately 1.8 x 1.5 x 2.0 cm without significant change. The adrenal glands are unremarkable. The kidneys are without abnormal density. No hydroureteronephrosis nor nephroureterolithiasis is evident. The urinary bladder contains urine. The stomach is markedly distended and contains particular material. There are mildly dilated loops of fluid-filled small bowel but without evidence for transition point. The colon is distended with stool and air. Multiple diverticula seen within the sigmoid colon without surrounding inflammatory changes. The appendix is not visualized however there are no periappendiceal inflammatory changes. The uterus is anteflexed. There is no significant pelvic free fluid. Phleboliths are seen within the pelvis. The aortoiliac vessels are diffusely calcified but without aneurysmal dilatation. Mild degenerative changes are seen within the spine. IMPRESSION: 1. Status post cholecystectomy. 2. Distended stomach containing particular material. 3. Mildly dilated fluid-filled loops of small bowel with distended air and stool filled colon without obstruction. Etiologies include enterocolitis, inf lammatory bowel disease. 4. Sigmoid diverticulosis. 5. Small ovoid hypodense focus within the inferior aspect of the spleen without significant interval change. This may represent a hemangioma. 6. Vascular calcifications. 7. Mild degenerative changes within the spine. .Ranjit Stevens MD, MD Date Time Electronically viewed and signed by .Ranjit Stevens MD, on 07/28/2018 03:04 .Krissy/ ERICKA VILLAVICENCIO Jul 28, 2018 13:45
[2018-07-28] MEDS: metroNIDAZOLE 500 MG/NS (PMX) 100 ML IVPB SCH ×2 (14:22→20:37)
[2018-07-28] MEDS: LACTOBACILLUS RHAMNOSUS CAP PO SCH (20:36)
[2018-07-28] MEDS: PREGABALIN 100 MG CAP PO SCH (20:36)
[2018-07-28] MEDS: ZOLPIDEM 5 MG TAB PO PRN (22:04)
[2018-07-29] VITALS (12 sets, daily range): BP systolic 112–155; BP diastolic 58–68; PULSE 66–83; RESP 18–19
[2018-07-29] MEDS: ALBUTEROL HFA 8 GM INHALER INH SCH ×6 (01:00→20:16)
[2018-07-29] MEDS: ACCU-CHEK XX SCH (01:12)
[2018-07-29] MEDS: DEXTROSE 5% 1,000 ML IV SCH ×2 (03:52→17:14)
[2018-07-29] MEDS: LEVOFLOXACIN 500 MG TAB PO SCH (05:06)
[2018-07-29] MEDS: PANTOPRAZOLE (EC) 40 MG TAB PO SCH (05:06)
[2018-07-29] MEDS: metroNIDAZOLE 500 MG/NS (PMX) 100 ML IVPB SCH ×3 (05:06→21:12)
[2018-07-29] MEDS ORDERED: LEVOFLOXACIN 500 MG TAB PO SCH (08:00)
[2018-07-29] MEDS: LACTOBACILLUS RHAMNOSUS CAP PO SCH ×2 (08:10→20:15)
[2018-07-29] MEDS: BUPROPION 100 MG TAB PO SCH ×2 (08:10→20:16)
[2018-07-29] MEDS: FLUTICASONE/VILANTEROL 100-25 INH SCH (08:10)
[2018-07-29] MEDS: DICYCLOMINE 10 MG CAP PO SCH ×3 (08:10→20:16)
[2018-07-29] MEDS: LISINOPRIL 20 MG TAB PO SCH (08:11)
[2018-07-29] MEDS: PREGABALIN 100 MG CAP PO SCH ×2 (08:11→20:15)
[2018-07-29] MEDS: ALPRAZOLAM 0.5 MG TAB PO SCH ×2 (08:11→20:16)
[2018-07-29] MEDS: VENLAFAXINE 75 MG TABLET PO SCH (08:11)
[2018-07-29] MEDS: MELOXICAM 15 MG TAB PO SCH (08:11)
[2018-07-29] MEDS: FERROUS SULFATE (EC) 325 MG TAB PO SCH (08:11)
[2018-07-29] MEDS: METOPROLOL 25 MG TAB PO SCH (08:12)
[2018-07-29] MEDS: ASPIRIN (EC) 81 MG TAB PO SCH (08:12)
[2018-07-29] MEDS: INSULIN ASPART [NOVOLOG] 3 ML PEN SC SCH ×4 (08:13→20:51)
--- NOTE | 2018-07-29 11:27 | PN ---
Date/Time of Note Date/Time of Note DATE: 07/29/18 TIME: 11:26 Assessment/Plan VTE Prophylaxis Risk score (from Ns)>0 risk: 2 SCD applied (from [facility] [place]): Yes SCD contraindicated: other Pharmacological prophylaxis: LMWH Lines/Catheters IV Catheter Type (from [facility]): Peripheral IV Urinary Cath still in place: No Assessment/Plan Assessment/Plan 1. gastroenteriis, resolving; advance diet 2. hypoglycemia, resolved (b0 DM 3. anticipate d.c in am Result Diagram: 07/29/18 0651 07/29/18 0651 Results 24hrs Laboratory Tests Test 07/28/18 12:01 07/28/18 17:31 07/28/18 20:34 07/29/18 06:51 Bedside Glucose 206 159 165 White Blood Count 9.9 # Red Blood Count 4.60 Hemoglobin 12.3 Hematocrit 40.4 Mean Corpuscular Volume 87.8 Mean Corpuscular 26.7 L Hemoglobin Mean Corpuscular 30.4 L Hemoglobin Concent Red Cell Distribution 15.7 H Width Platelet Count 253 Mean Platelet Volume 9.7 Immature Granulocytes % 0.500 H Neutrophils % 55.2 Lymphocytes % 25.7 Monocytes % 5.7 Eosinophils % 12.4 H Basophils % 0.5 Nucleated Red Blood 0.0 Cells % Immature Granulocytes # 0.050 H Neutrophils # 5.5 Lymphocytes # 2.6 Monocytes # 0.6 Eosinophils # 1.2 H Basophils # 0.1 Nucleated Red Blood 0.0 Cells # Sodium Level 142 Potassium Level 4.6 Chloride Level 106 Carbon Dioxide Level 27 Anion Gap 9 Blood Urea Nitrogen 13 Creatinine 0.89 Est Glomerular Filtrat > 60 Rate mL/min Glucose Level 167 Calcium Level 9.0 Phosphorus Level 3.6 Magnesium Level 1.9 Test 07/29/18 07:53 Bedside Glucose 177 Subjective 24 Hr Interval Summary Free Text/Dictation no complaints, pain improbed, no diarrhea,, no nausea, toelrating liquids Exam/Review of Systems Exam Vitals Vital Signs Date Temp Pulse Resp B/P (MAP) Pulse Ox O2 O2 Flow FiO2 Time Delivery Rate 07/29/18 73 08:06 07/29/18 Nasal 2.0 08:00 Cannula 07/29/18 98.2 18 124/60 95 07:17 (81) 07/29/18 28 06:16 Intake and Output 07/28/18 07/28/18 07/29/18 1515:00 23:00 07:00 IntakeIntake Total 1375 ml 1800 ml BalanceBalance 1375 ml 1800 ml Exam nad, soft nt, ctab Results Results 24hrs Laboratory Tests Test 07/28/18 12:01 07/28/18 17:31 07/28/18 20:34 07/29/18 06:51 Bedside Glucose 206 159 165 White Blood Count 9.9 # Red Blood Count 4.60 Hemoglobin 12.3 Hematocrit 40.4 Mean Corpuscular Volume 87.8 Mean Corpuscular 26.7 L Hemoglobin Mean Corpuscular 30.4 L Hemoglobin Concent Red Cell Distribution 15.7 H Width Platelet Count 253 Mean Platelet Volume 9.7 Immature Granulocytes % 0.500 H Neutrophils % 55.2 Lymphocytes % 25.7 Monocytes % 5.7 Eosinophils % 12.4 H Basophils % 0.5 Nucleated Red Blood 0.0 Cells % Immature Granulocytes # 0.050 H Neutrophils # 5.5 Lymphocytes # 2.6 Monocytes # 0.6 Eosinophils # 1.2 H Basophils # 0.1 Nucleated Red Blood 0.0 Cells # Sodium Level 142 Potassium Level 4.6 Chloride Level 106 Carbon Dioxide Level 27 Anion Gap 9 Blood Urea Nitrogen 13 Creatinine 0.89 Est Glomerular Filtrat > 60 Rate mL/min Glucose Level 167 Calcium Level 9.0 Phosphorus Level 3.6 Magnesium Level 1.9 Test 07/29/18 07:53 Bedside Glucose 177 Medications Medication Current Medications Morphine Sulfate (morphine) 2 mg Q4H PRN IV SEVERE PAIN LEVEL 7-10 Last administered on 07/28/18at 06:57; Admin Dose 2 MG; Start 07/28/18 at 06:30 Ondansetron HCl (Zofran Inj) 4 mg Q4H PRN IV NAUSEA AND/OR VOMITING; Start 07/28/18 at 06:30 Acetaminophen (Tylenol Tab) 650 mg Q4H PRN PO MILD PAIN(1-3)OR ELEVATED TEMP; Start 07/28/18 at 06:30 Dextrose 1,000 ml @ 75 mls/hr [id number] IV Last administered on 07/29/18at 03:52; Admin Dose 75 MLS/HR; Start 07/28/18 at 14:00 Metronidazole 100 ml @ 100 mls/hr Q8 IVPB Last administered on 07/29/18at 05:06; Admin Dose 100 MLS/HR; Start 07/28/18 at 14:00 Insulin Aspart (Novolog Insulin Pen) NOVOLOG *MILD* ALGORITHM WITH MEALS BEDTIME SC Last administered on 07/29/18 08:13; Admin Dose 1 UNIT; Start 07/28/18 at 07:55 Diagnostic Test (Pha) (Accu-Chek) 1 ea 02 XX ; Start 07/29/18 at 02:00 Albuterol (Ventolin Hfa) 2 puff Q4H RESP THERAPY INH Last administered on 07/28/18 20:37; Admin Dose 2 PUFF; Start 07/28/18 at 09:00 Alprazolam (Xanax) 0.5 mg BID PO Last administered on 07/29/18 08:11; Admin Dose 0.5 MG; Start 07/28/18 at 09:00 Aspirin (Halfprin) 81 mg DAILY PO Last administered on 07/29/18 08:12; Admin Dose 81 MG; Start 07/28/18 at 09:00 Bupropion HCl (Wellbutrin) 100 mg BID PO Last administered on 07/29/18 08:10; Admin Dose 100 MG; Start 07/28/18 at 09:00 Dicyclomine HCl (Bentyl) 10 mg TID PO Last administered on 07/29/18 08:10; Admin Dose 10 MG; Start 07/28/18 at 09:00 Ferrous Sulfate (Ferrous Sulfate (Ec)) 650 mg DAILY PO Last administered on 07/29/18 08:11; Admin Dose 650 MG; Start 07/28/18 at 09:00 Lisinopril (Zestril) 20 mg DAILY PO Last administered on 07/29/18 08:11; Admin Dose 20 MG; Start 07/28/18 at 09:00 Metoprolol Tartrate (Lopressor) 25 mg DAILY PO Last administered on 07/29/18 08:12; Admin Dose 25 MG; Start 07/28/18 at 09:00 Venlafaxine HCl (Effexor) 75 mg DAILY PO Last administered on 07/29/18 08:11; Admin Dose 75 MG; Start 07/28/18 at 09:00 Miscellaneous Information 1 ea NOTE XX ; Start 07/28/18 at 07:00 Glucose (Glutose) 15 gm Q15M PRN PO DECREASED GLUCOSE; Start 07/28/18 at 07:00 Glucose (Glutose) 22.5 gm Q15M PRN PO DECREASED GLUCOSE; Start 07/28/18 at 07:00 Dextrose (D50w Syringe) 25 ml Q15M PRN IV DECREASED GLUCOSE; Start 07/28/18 at 07:00 Dextrose (D50w Syringe) 50 ml Q15M PRN IV DECREASED GLUCOSE; Start 07/28/18 at 07:00 Glucagon (Glucagen) 1 mg Q15M PRN IM DECREASED GLUCOSE; Start 07/28/18 at 07:00 Glucose (Glutose) 15 gm Q15M PRN BUCCAL DECREASED GLUCOSE; Start 07/28/18 at 07:00 Levofloxacin (Levaquin) 500 mg DAILY@06 PO Last administered on 07/29/18 05:06; Admin Dose 500 MG; Start 07/28/18 at 08:30 Pantoprazole (Protonix Tab) 40 mg DAILY@06 PO Last administered on 07/29/18 05:06; Admin Dose 40 MG; Start 07/28/18 at 08:30 Zolpidem Tartrate (Ambien) 5 mg HS MAY REPEAT X 1 PRN PO INSOMNIA Last administered on 07/28/18 22:04; Admin Dose 5 MG; Start 07/28/18 at 10:00 Meloxicam (Mobic) 15 mg DAILY PO Last administered on 07/29/18 08:11; Admin Dose 15 MG; Start 07/28/18 at 11:00 Fluticasone/ Vilanterol (Breo Ellipta 100-25 Mcg Inh) 1 inh DAILY INH Last administered on 07/29/18 08:10; Admin Dose 1 INH; Start 07/28/18 at 11:00 Miscellaneous Information Patients own medicat... BID@10,16 XX ; Start 07/28/18 at 16:00 Pregabalin (Lyrica) 100 mg BID PO Last administered on 07/29/18 08:11; Admin Dose 100 MG; Start 07/28/18 at 21:00 Lactobacillus Acidophilus/ Rhamnosus (Culturelle) 1 cap BID PO Last administered on 07/29/18 08:10; Admin Dose 1 CAP; Start 07/28/18 at 21:00 ELIANA MAK MD Jul 29, 2018 11:27
[2018-07-29] MEDS: ZOLPIDEM 5 MG TAB PO PRN (21:12)
[2018-07-30] VITALS (7 sets, daily range): BP systolic 146–164; BP diastolic 66–75; PULSE 64–77; RESP 18
[2018-07-30] MEDS: ALBUTEROL HFA 8 GM INHALER INH SCH ×3 (01:00→08:17)
[2018-07-30] MEDS: ACCU-CHEK XX SCH (02:00)
[2018-07-30] MEDS: LEVOFLOXACIN 500 MG TAB PO SCH (05:12)
[2018-07-30] MEDS: metroNIDAZOLE 500 MG/NS (PMX) 100 ML IVPB SCH (05:12)
[2018-07-30] MEDS: PANTOPRAZOLE (EC) 40 MG TAB PO SCH (05:12)
[2018-07-30] MEDS: DEXTROSE 5% 1,000 ML IV SCH (05:13)
[2018-07-30] MEDS: FLUTICASONE/VILANTEROL 100-25 INH SCH (08:16)
[2018-07-30] MEDS: LACTOBACILLUS RHAMNOSUS CAP PO SCH (08:17)
[2018-07-30] MEDS: BUPROPION 100 MG TAB PO SCH (08:17)
[2018-07-30] MEDS: MELOXICAM 15 MG TAB PO SCH (08:17)
[2018-07-30] MEDS: VENLAFAXINE 75 MG TABLET PO SCH (08:17)
[2018-07-30] MEDS: LISINOPRIL 20 MG TAB PO SCH (08:17)
[2018-07-30] MEDS: FERROUS SULFATE (EC) 325 MG TAB PO SCH (08:17)
[2018-07-30] MEDS: ASPIRIN (EC) 81 MG TAB PO SCH (08:17)
[2018-07-30] MEDS: DICYCLOMINE 10 MG CAP PO SCH (08:17)
[2018-07-30] MEDS: METOPROLOL 25 MG TAB PO SCH (08:18)
[2018-07-30] MEDS: INSULIN ASPART [NOVOLOG] 3 ML PEN SC SCH ×2 (08:21→12:08)
[2018-07-30] MEDS: PREGABALIN 100 MG CAP PO SCH (08:23)
[2018-07-30] MEDS: ALPRAZOLAM 0.5 MG TAB PO SCH (08:23)
--- NOTE | 2018-07-30 10:39 | PN ---
Date/Time of Note Date/Time of Note DATE: 07/30/18 TIME: 10:37 Assessment/Plan VTE Prophylaxis Risk score (from Ns)>0 risk: 2 SCD applied (from Ns): Yes Pharmacological prophylaxis: other Lines/Catheters IV Catheter Type (from Nrs): Saline Lock Urinary Cath still in place: No Assessment/Plan Assessment/Plan 1. gastroenteritis, resolving 2. hypoxemia noted, will check cxr and recheck O2 sat (likely atelectasis related) 3. anticipate d/c home this PM Result Diagram: 07/30/1815 07/30/1815 Results 24hrs Laboratory Tests Test 07/29/18 11:40 07/29/18 17:07 07/29/18 20:13 07/30/18 02:34 Bedside Glucose 170 214 187 177 Test 07/30/18 06:15 07/30/18 08:08 White Blood Count 12.3 #H Red Blood Count 4.77 Hemoglobin 12.8 Hematocrit 40.7 Mean Corpuscular Volume 85.3 Mean Corpuscular 26.8 L Hemoglobin Mean Corpuscular 31.4 L Hemoglobin Concent Red Cell Distribution 15.3 H Width Platelet Count 264 Mean Platelet Volume 9.7 Immature Granulocytes % 0.300 Neutrophils % 53.7 Lymphocytes % 30.2 Monocytes % 5.7 Eosinophils % 9.5 H Basophils % 0.6 Nucleated Red Blood 0.0 Cells % Immature Granulocytes # 0.040 H Neutrophils # 6.6 Lymphocytes # 3.7 H Monocytes # 0.7 Eosinophils # 1.2 H Basophils # 0.1 Nucleated Red Blood 0.0 Cells # Sodium Level 142 Potassium Level 4.4 Chloride Level 106 Carbon Dioxide Level 28 Anion Gap 8 Blood Urea Nitrogen 12 Creatinine 0.78 Est Glomerular Filtrat > 60 Rate mL/min Glucose Level 182 Calcium Level 9.3 Bedside Glucose 174 Subjective 24 Hr Interval Summary Free Text/Dictation no complaints, tolerating diet, some loose stool amnbulating to toilet Exam/Review of Systems Exam Vitals Vital Signs Date Temp Pulse Resp B/P (MAP) Pulse Ox O2 O2 Flow FiO2 Time Delivery Rate 07/30/18 Nasal 2.0 08:30 Cannula 07/30/18 65 08:00 07/30/18 98.3 18 164/75 96 07:10 (104) 07/29/18 28 06:16 Intake and Output 07/29/18 07/29/18 07/30/18 1515:00 23:00 07:00 IntakeIntake Total 1350 ml 1545 ml BalanceBalance 1350 ml 1545 ml Exam nad soft nt Results Results 24hrs Laboratory Tests Test 07/29/18 11:40 07/29/18 17:07 07/29/18 20:13 07/30/18 02:34 Bedside Glucose 170 214 187 177 Test 07/30/18 06:15 07/30/18 08:08 White Blood Count 12.3 #H Red Blood Count 4.77 Hemoglobin 12.8 Hematocrit 40.7 Mean Corpuscular Volume 85.3 Mean Corpuscular 26.8 L Hemoglobin Mean Corpuscular 31.4 L Hemoglobin Concent Red Cell Distribution 15.3 H Width Platelet Count 264 Mean Platelet Volume 9.7 Immature Granulocytes % 0.300 Neutrophils % 53.7 Lymphocytes % 30.2 Monocytes % 5.7 Eosinophils % 9.5 H Basophils % 0.6 Nucleated Red Blood 0.0 Cells % Immature Granulocytes # 0.040 H Neutrophils # 6.6 Lymphocytes # 3.7 H Monocytes # 0.7 Eosinophils # 1.2 H Basophils # 0.1 Nucleated Red Blood 0.0 Cells # Sodium Level 142 Potassium Level 4.4 Chloride Level 106 Carbon Dioxide Level 28 Anion Gap 8 Blood Urea Nitrogen 12 Creatinine 0.78 Est Glomerular Filtrat > 60 Rate mL/min Glucose Level 182 Calcium Level 9.3 Bedside Glucose 174 Medications Medication Current Medications Morphine Sulfate (morphine) 2 mg Q4H PRN IV SEVERE PAIN LEVEL 7-10 Last administered on 07/28/18at 06:57; Admin Dose 2 MG; Start 07/28/18 at 06:30 Ondansetron HCl (Zofran Inj) 4 mg Q4H PRN IV NAUSEA AND/OR VOMITING; Start 07/28/18 at 06:30 Acetaminophen (Tylenol Tab) 650 mg Q4H PRN PO MILD PAIN(1-3)OR ELEVATED TEMP; Start 07/28/18 at 06:30 Dextrose 1,000 ml @ 75 mls/hr [id number] IV Last administered on 07/29/18at 17:14; Admin Dose 75 MLS/HR; Start 07/28/18 at 14:00 Metronidazole 100 ml @ 100 mls/hr Q8 IVPB Last administered on 4/7/19at 05:12; Admin Dose 100 MLS/HR; Start 07/28/18 at 14:00 Insulin Aspart (Novolog Insulin Pen) NOVOLOG *MILD* ALGORITHM WITH MEALS BEDTIME SC Last administered on 07/30/18 08:21; Admin Dose 1 UNIT; Start 07/28/18 at 07:55 Diagnostic Test (Pha) (Accu-Chek) 1 ea 02 XX ; Start 07/29/18 at 02:00 Albuterol (Ventolin Hfa) 2 puff Q4H RESP THERAPY INH Last administered on 07/30/18 08:17; Admin Dose 2 PUFF; Start 07/28/18 at 09:00 Alprazolam (Xanax) 0.5 mg BID PO Last administered on 07/30/18 08:23; Admin Dose 0.5 MG; Start 07/28/18 at 09:00 Aspirin (Halfprin) 81 mg DAILY PO Last administered on 07/30/18 08:17; Admin Dose 81 MG; Start 07/28/18 at 09:00 Bupropion HCl (Wellbutrin) 100 mg BID PO Last administered on 07/30/18 08:17; Admin Dose 100 MG; Start 07/28/18 at 09:00 Dicyclomine HCl (Bentyl) 10 mg TID PO Last administered on 07/30/18 08:17; Admin Dose 10 MG; Start 07/28/18 at 09:00 Ferrous Sulfate (Ferrous Sulfate (Ec)) 650 mg DAILY PO Last administered on 07/30/18 08:17; Admin Dose 650 MG; Start 07/28/18 at 09:00 Lisinopril (Zestril) 20 mg DAILY PO Last administered on 07/30/18 08:17; Admin Dose 20 MG; Start 07/28/18 at 09:00 Metoprolol Tartrate (Lopressor) 25 mg DAILY PO Last administered on 07/30/18 08:18; Admin Dose 25 MG; Start 07/28/18 at 09:00 Venlafaxine HCl (Effexor) 75 mg DAILY PO Last administered on 07/30/18 08:17; Admin Dose 75 MG; Start 07/28/18 at 09:00 Miscellaneous Information 1 ea NOTE XX ; Start 07/28/18 at 07:00 Glucose (Glutose) 15 gm Q15M PRN PO DECREASED GLUCOSE; Start 07/28/18 at 07:00 Glucose (Glutose) 22.5 gm Q15M PRN PO DECREASED GLUCOSE; Start 07/28/18 at 07:00 Dextrose (D50w Syringe) 25 ml Q15M PRN IV DECREASED GLUCOSE; Start 07/28/18 at 07:00 Dextrose (D50w Syringe) 50 ml Q15M PRN IV DECREASED GLUCOSE; Start 07/28/18 at 07:00 Glucagon (Glucagen) 1 mg Q15M PRN IM DECREASED GLUCOSE; Start 07/28/18 at 07:00 Glucose (Glutose) 15 gm Q15M PRN BUCCAL DECREASED GLUCOSE; Start 07/28/18 at 07:00 Levofloxacin (Levaquin) 500 mg DAILY@06 PO Last administered on 07/30/18at 05:12; Admin Dose 500 MG; Start 07/28/18 at 08:30 Pantoprazole (Protonix Tab) 40 mg DAILY@06 PO Last administered on 07/30/18 05:12; Admin Dose 40 MG; Start 07/28/18 at 08:30 Zolpidem Tartrate (Ambien) 5 mg HS MAY REPEAT X 1 PRN PO INSOMNIA Last administered on 07/29/18at 21:12; Admin Dose 5 MG; Start 07/28/18 at 10:00 Meloxicam (Mobic) 15 mg DAILY PO Last administered on 07/30/18at 08:17; Admin Dose 15 MG; Start 07/28/18 at 11:00 Fluticasone/ Vilanterol (Breo Ellipta 100-25 Mcg Inh) 1 inh DAILY INH Last a dministered on 07/30/18at 08:16; Admin Dose 1 INH; Start 07/28/18 at 11:00 Miscellaneous Information Patients own medicat... BID@10,16 XX ; Start 07/28/18 at 16:00 Pregabalin (Lyrica) 100 mg BID PO Last administered on 07/30/18at 08:23; Admin Dose 100 MG; Start 07/28/18 at 21:00 Lactobacillus Acidophilus/ Rhamnosus (Culturelle) 1 cap BID PO Last administered on 07/30/18 08:17; Admin Dose 1 CAP; Start 07/28/18 at 21:00 ELIANA MAK MD Jul 30, 2018 10:39
[2018-07-30] MEDS ORDERED: METR-122 PO (13:45)
[2018-07-30] MEDS ORDERED: LEVO500T48 PO (13:46)
--- NOTE | 2018-07-30 15:04 | PDOCDIS ---
Discharge Instructions DIAGNOSIS Discharge Diagnosis 1. gastroenteritis 2. atelectasis causing hypoxemia CONDITION [id number] Patient Condition: [id number] Good HOME CARE INSTRUCTIONS: [id number] Diet Instructions: [id number] Regular ACTIVITY: [id number] Activity Restrictions: [id number] No Restrictions FOLLOW UP/APPOINTMENTS Follow-up Plan pcp 1 week ELIANA MAK MD Jul 30, 2018 15:04
--- NOTE | 2018-07-30 15:06 | DS ---
Date/Time of Note Date/Time of Note DATE: 07/30/18 TIME: 15:04 Discharge Summary Admission/Discharge Info Admit Date/Time Jul 28, 2018 at 03:21 Discharge Date/Time Jul 30, 2018 at 14:45 Discharge Diagnosis 1. gastroenteritis 2. atelectasis causing hypoxemia Patient Condition: Good Hospital Course patient was admitted with cramping abdominal pain and vomiting, she improved rapidly with treatmetn with iv fluids and antibiotics and on the day of discharge she if tolerating diet and ambulating without difficulty. During the stay in hospital patient is noted to have hypoxemia, this is attributed to atelectasis adn prior to discharge she is able to ambulate with an O2 sat of 96% on room air Home Meds Active Scripts Salmeterol Xinaf/Fluticasone* (Advair*) 250-50 Diskus Inhaler, 1 INH INHALATION BID, #1 INHALER Prov:ELVI ADAMS MD 05/06/17 Albuterol Sulfate* (Proair HFA*) 8.5 Gm Hfa.aer.ad, 2 PUFF INH Q4, #1 INHALER Prov:ELVI ADAMS MD 05/06/17 Reported Medications Levofloxacin* (Levaquin*) 500 Mg Tablet, 500 MG PO DAILY, TAB 07/30/18 Metronidazole* (Metronidazole*) 500 Mg Tablet, 500 MG PO TID, TAB 07/30/18 Meloxicam* (Meloxicam*) 7.5 Mg/5 Ml Oral.susp, 15 MG PO DAILY, #300 ML 07/28/18 Pregabalin* (Lyrica*) 100 Mg Capsule, 100 MG PO TID, CAP 07/28/18 Ferrous Sulfate* (Ferrous Sulfate*) 325 Mg Tabec, PO DAILY, TAB 07/28/18 Ranitidine Hcl* (Zantac*) 300 Mg Tablet, 300 MG PO HS, #30 TAB 07/28/18 Dicyclomine HCl (Dicyclomine HCl) 10 Mg Capsule, 10 MG PO TID 07/28/18 Venlafaxine Hcl* (Venlafaxine Hcl*) 75 Mg Tablet, 75 MG PO DAILY, TAB 07/28/18 Aspirin (Low Dose Aspirin) 81 Mg Tablet.dr, 81 MG PO DAILY, #30 TAB 01/11/16 Omeprazole* (Omeprazole*) 40 Mg Capsule.dr, 40 MG PO DAILY, #30 CAP 01/11/16 Sitagliptin* (Januvia*) 100 Mg Tablet, 100 MG PO DAILY, #30 TAB 01/11/16 Ranitidine Hcl* (Ranitidine Hcl*) 150 Mg Tablet, 150 MG PO HS, #30 TAB 01/11/16 Metoprolol Tartrate* (Lopressor*) 25 Mg Tablet, 25 MG PO DAILY, #60 TAB 01/11/16 Clonidine Hcl* (Clonidine Hcl*) 0.1 Mg Tab, 0.1 MG PO DAILY, TAB 01/11/16 Metformin Hcl* (Metformin Hcl*) 1,000 Mg Tablet, 1000 MG PO BID, #60 07/28/15 Insulin Regular, Human (Humulin R) 100 Units/Ml Vial, 0 SC 10AM 5PM MIDNIGHT, VIAL 07/28/15 Bupropion Hcl* (Bupropion Hcl*) 100 Mg Tablet, 100 MG PO BID, #90 07/28/15 Alprazolam* (Alprazolam*) 0.5 Mg Tablet, 0.5 MG PO BID, #60 07/28/15 Triazolam* (Triazolam*) 0.25 Mg Tablet, 0.25 MG PO QHS PRN for SLEEP, #30 07/28/15 Lisinopril* (Lisinopril*) 20 Mg Tablet, 20 MG PO DAILY, #30 07/28/15 Discontinued Reported Medications Venlafaxine Hcl* (Venlafaxine Hcl ER*) 150 Mg Cap.er.24h, 150 MG PO DAILY, #30 07/28/15 Albuterol Sulfate* (Proair HFA*) 8.5 Gm Hfa.aer.ad, 1 PUFF PO Q4 PRN for WHEEZING AND SOB, #9 07/28/15 Discontinued Scripts Phenazopyridine Hcl* (Pyridium*) 200 Mg Tab, 200 MG PO TID PRN for URINARY PAIN, #6 TAB Prov:CHANEL ABREU MD 02/03/18 Cephalexin* (Keflex*) 500 Mg Capsule, 500 MG PO BID for 7 Days, CAP Prov:CHANEL ABREU MD 02/03/18 Hydrocodone/Acetaminophen (Minerva 5-325 Tablet) 1 Each Tablet, 1 TAB PO Q6H PRN for PAIN, #12 TAB Prov:RO WOOTENC 01/14/18 Ciprofloxacin Hcl* (Ciprofloxacin Hcl*) 500 Mg Tablet, 500 MG PO BID for 5 Days, TAB Prov:CHEY JENKINS DO 11/05/17 Hydrocodone/Acetaminophen (Minerva 10-325 Tablet) 1 Each Tablet, 1 TAB PO Q6H PRN for PAIN, #7 TAB Prov:CHEY JENKINS DO 11/05/17 Ondansetron (Ondansetron Odt) 4 Mg Tab.rapdis, 4 MG PO Q6H PRN for NAUSEA AND/OR VOMITING, #10 TAB Prov:SHWETA JENKINSS A. DO 11/05/17 Diphenoxylate HCl/Atropine (Lomotil 2.5-0.025 mg Tablet) 1 Each Tablet, 1 TAB PO QID PRN for DIARRHEA, #10 TAB Prov:CHEY JENKINS DO 11/05/17 Phenazopyridine Hcl* (Pyridium*) 100 Mg Tab, 100 MG PO TID PRN for URINARY PAIN, #6 TAB Prov:TOMMY BRYAN NP 08/01/17 Nitrofurantoin Monohyd Macrocr* (Macrobid*) 100 Mg Capsr, 100 MG PO BID for 7 Days, CAP Prov:TOMMY BRYAN NP 08/01/17 Albuterol Sulfate* (Albuterol Sulfate* Neb) 0.083%-3 Ml Neb, 2.5 MG NEB Q4 PRN for SHORTNESS OF BREATH, #30 EA Prov:ELVI ADAMS MD 05/06/17 Azithromycin* (Zithromax*) 250 Mg Tablet, 250 MG PO .BABAK DIRECTED, #6 TAB TAKE 500 MG (2 TABS) THE FIRST DAY THEN 250 MG (1 TAB) DAYS 2-5 Prov:RO WOOTEN PA-C 05/04/17 Acetaminophen* (Tylophen*) 500 Mg Capsule, 1 CAP PO Q6H PRN for PAIN AND OR ELEVATED TEMP, #30 CAP Prov:RO WOOTENC 05/04/17 Ibuprofen* (Motrin*) 600 Mg Tab, 600 MG PO Q6, #30 TAB Prov:RO WOOTENC 05/04/17 Cetirizine Hcl* (Zyrtec*) 10 Mg Capsule, 10 MG PO DAILY, #14 TAB.CHEW Prov:RO WOOTEN PA-C 05/04/17 Fluticasone Propionate (Flonase Allergy Relief) 9.9 Ml [place].susp, 2 SPRAY NASAL DAILY, #1 BOTTLE TO EACH NOSTRIL Prov:RO WOOTEN PA-C 05/04/17 Acetaminophen* (Tylenol*) 325 Mg Tablet, 2 TAB PO Q6 PRN for PAIN AND OR ELEVATED TEMP, #20 TAB Prov:LAUREN VILLALOBOS PA-C 01/17/17 Loratadine* (Claritin*) 10 Mg Tablet, 10 MG PO DAILY, #30 TAB Prov:LAUREN VILLALOBOSC 01/17/17 Ibuprofen* (Ibuprofen*) 600 Mg Tablet, 600 MG PO Q6 for 3 Days, TAB Prov:COLIN MARINO 09/29/16 Amoxicillin* (Amoxicillin*) 500 Mg Cap, 500 MG PO TID for 10 Days, CAP Prov:COLIN MARINO 09/29/16 Neomycin/Polymyxin/Hydrocort* (Cortisporin* Otic) 10 Ml Susp, 4 DROP RIGHT EAR QID for 7 Days, EA Prov:COLIN MARINO 09/29/16 Ondansetron (Ondansetron Odt) 4 Mg Tab.rapdis, 4 MG PO Q6H PRN for NAUSEA AND/OR VOMITING, #10 TAB Prov:DANIEL KATZ 03/24/16 Hydrocodone/Acetaminophen (Minerva 5-325 Tablet) 1 Each Tablet, 1 TAB PO Q6H PRN for PAIN, #20 TAB Prov:DANIEL KATZ SArin 03/24/16 Follow-up Plan pcp 1 week Primary Care Provider Cory Barahona MD Time spent on discharge: > 30 minutes Pending Labs Laboratory Tests Test 07/29/18 17:07 07/29/18 20:13 07/30/18 02:34 07/30/18 06:15 Bedside 214 187 177 Glucose mg/dL (70-220) mg/dL (70-220) mg/dL (70-220) White Blood 12.3 Count 10^3/ul (4.8-1 0.8) Red Blood 4.77 Count 10^6/ul (4.20- 5.40) Hemoglobin 12.8 g/dl (12.0-16. 0) Hematocrit 40.7 % (37.0-47.0) Mean 85.3 Corpuscular fl (82.0-101.0 Volume ) Mean 26.8 Corpuscular pg (29.0-33.0) Hemoglobin Mean 31.4 Corpuscular g/dl (32.0-37. Hemoglobin Conc 0) ent Red Cell 15.3 Distribution % (11.5-14.5) Width Platelet Count 264 10^3/UL (140-4 15) Mean Platelet 9.7 Volume fl (7.4-10.4) Immature 0.300 Granulocytes % % (0.001-0.429 ) Neutrophils % 53.7 % (39.0-77.0) Lymphocytes % 30.2 % (15.0-51.0) Monocytes % 5.7 % (0.0-11.0) Eosinophils % 9.5 % (0.0-7.0) Basophils % 0.6 % (0.0-2.0) Nucleated Red 0.0 Blood Cells % /100WBC (0.0-0 .0) Immature 0.040 Granulocytes # 10^3/ul (0.0-0 .031) Neutrophils # 6.6 10^3/ul (1.6-7 .5) Lymphocytes # 3.7 10^3/ul (0.8-2 .9) Monocytes # 0.7 10^3/ul (0.3-0 .9) Eosinophils # 1.2 10^3/ul (0.0-0 .5) Basophils # 0.1 10^3/ul (0.0-0 .1) Nucleated Red 0.0 Blood Cells # 10^3/ul (0.0-0 .0) Sodium Level 142 mmol/L (135-14 4) Potassium 4.4 Level mmol/L (3.5-5. 1) Chloride Level 106 mmol/L (97-110 ) Carbon Dioxide 28 Level mmol/L (21-31) Anion Gap 8 (5-13) Blood Urea 12 Nitrogen mg/dl (7-20) Creatinine 0.78 mg/dl (0.44-1. 00) Est Glomerular > 60 Filtrat mL/min (>60) Rate mL/min Glucose Level 182 mg/dl (70-220) Calcium Level 9.3 mg/dl (8.4-10. 2) Test 07/30/18 08:08 07/30/18 12:05 Bedside 174 225 Glucose mg/dL (70-220) mg/dL (70-220) ELIANA MAK MD Jul 30, 2018 15:06
== END 2018-07-30 14:45 | disposition home or self-care (01) ==
LOC: E/R 23:16 → TEL 07-28 03:21
PROVIDERS: ADMIT Internal Medicine; ATTEND Internal Medicine
DX: K52.9 Noninfective gastroenteritis and colitis, unspecified (principal); R09.02 Hypoxemia; E11.40 Type 2 diabetes mellitus with diabetic neuropathy, unspecified; I10 Essential (primary) hypertension; F41.8 Other specified anxiety disorders; K21.9 Gastro-esophageal reflux disease without esophagitis; J45.909 Unspecified asthma, uncomplicated; Z79.84 Long term (current) use of oral hypoglycemic drugs; Z79.82 Long term (current) use of aspirin; Z79.4 Long term (current) use of insulin
CPT/HCPCS: 36415; 71046; 74176; 80048; 80053; 80061; 81003; 82962; 83036; 83690; 83735; 84100; 85025; 86674; 87045; 87075; 87205; 96374; 96375; 99285; G0378; J0696; J1815; J1956; J2270; J2405; J7070

== ENCOUNTER 2018-08-17 16:36 | Emergency (ER) | payer OTHER ==
[~2018-08-17] VITALS: Wt 116.5 kg
[~2018-08-17 16:36] MED LIST changes: -ACET325T33 PO; -ACET500C5 PO; -ALBU2.5V3 NEB; -ALBU8.5H8 PO; -AMOX500C2 PO; -AZIT250T PO; -CEPH-443 PO; -CETI10CA PO; -CIPR500T4 PO; +DICY10CA40 PO; -DIPH1TAB PO; +FER325 PO; -FLUT9.9S NASAL; -HYDR-3980 PO; -HYDR-4011 PO; -IBUP-1542 PO; +LEVO500T48 PO; -LORA-186 PO; +LYRI100 PO; +MELO7.5O PO; +METR-122 PO; -NITR-58 PO; -NPH10OT RIGHT EAR; -ONDA4TAB14 PO; -PHEN-537 PO; -PHEN-538 PO; +RANI300T3 PO; -VENL150C94 PO; +VENL75TA PO
[2018-08-17] MEDS ORDERED: ALBUTEROL 0.083% (NEB) 2.5 MG/3 ML AMP NEB STA (18:36)
[2018-08-17] MEDS ORDERED: DEXAMETHASONE 10 MG/ML 1 ML INJ IM STA (18:36)
[2018-08-17] MEDS ORDERED: LYRI100 PO (19:10)
[2018-08-17] MEDS ORDERED: ALBU8.5H8 INH (19:10)
[2018-08-17] MEDS ORDERED: ADV25050 INHALATION (19:11)
[2018-08-17] MEDS ORDERED: BUPR100T14 PO (19:11)
[2018-08-17] MEDS ORDERED: FER325 PO (19:12)
[2018-08-17] MEDS ORDERED: VENL75CA89 PO (19:12)
[2018-08-17] MEDS ORDERED: SITA100T11 PO (19:12)
[2018-08-17] MEDS ORDERED: RANI300T PO (19:13)
[2018-08-17] MEDS ORDERED: DICY10CA40 PO (19:13)
[2018-08-17] MEDS ORDERED: OMEP40CA6 PO (19:14)
[2018-08-17] MEDS ORDERED: METF100010 PO (19:14)
[2018-08-17] MEDS ORDERED: ERGO500013 PO (19:15)
[2018-08-17] MEDS ORDERED: INSU500I SQ ×2 (19:16→19:17)
[2018-08-17] MEDS ORDERED: LISI-471 PO (19:17)
[2018-08-17] MEDS ORDERED: CLON-379 PO (19:17)
[2018-08-17] MEDS ORDERED: METO-448 PO (19:18)
[2018-08-17] MEDS ORDERED: ALBU2.5V3 NEB (20:00)
--- NOTE | 2018-08-17 20:03 | ERD ---
ER Documentation Chief Complaint Chief Complaint c/o asthma exacerbation HPI 57-year-old female history of asthma who presents the emergency room with asthma exacerbation. She describes wheezing and shortness of breath that is usually consistent with weather changes. Patient has been using her inhaler and inhaled corticosteroid without much success. Patient denies any fevers chills or significant cough. No productive sputum. ROS All systems reviewed and are negative except as per history of present illness. Medications Home Meds Active Scripts Albuterol Sulfate* (Albuterol Sulfate* Neb) 0.083%-3 Ml Neb, 2.5 MG NEB Q4 PRN for SHORTNESS OF BREATH, #30 EA Prov:PACO SOLIS MD 08/17/18 Reported Medications Metoprolol Tartrate* (Lopressor*) 25 Mg Tab, 25 MG PO BID, #60 TAB 08/17/18 Clonidine Hcl* (Clonidine Hcl*) 0.1 Mg Tab, 0.1 MG PO DAILY, TAB 08/17/18 Lisinopril* (Lisinopril*) 20 Mg Tablet, 20 MG PO DAILY, #30 TAB 08/17/18 Insulin Regular, Human (Humulin R U-500 Kwikpen) 500 Unit/1 Ml Insuln.pen, 5 UNIT SQ QPM 08/17/18 Insulin Regular, Human (Humulin R U-500 Kwikpen) 500 Unit/1 Ml Insuln.pen, 10 UNIT SQ QAM 08/17/18 Ergocalciferol (Vitamin D2) (VITAMIN D2) 50,000 Unit Capsule, 12104 UNIT PO Q7D, CAP 08/17/18 Omeprazole* (Omeprazole*) 40 Mg Capsule.dr, 40 MG PO DAILY, #30 CAP 08/17/18 Metformin Hcl* (Metformin Hcl*) 1,000 Mg Tablet, 1000 MG PO WITH BREAKFAST DINNE, #60 TAB 08/17/18 Ranitidine Hcl* (Ranitidine Hcl*) 300 Mg Tablet, 300 MG PO HS, #30 TAB 08/17/18 Dicyclomine HCl (Dicyclomine HCl) 10 Mg Capsule, 10 MG PO TID 08/17/18 Ferrous Sulfate* (Ferrous Sulfate*) 325 Mg Tabec, 325 MG PO BID, TAB 08/17/18 Sitagliptin* (Januvia*) 100 Mg Tablet, 100 MG PO DAILY, #30 TAB 08/17/18 Venlafaxine Hcl* (Venlafaxine Hcl ER*) 75 Mg Cap.er.24h, 75 MG PO DAILY, CAP 08/17/18 Bupropion Hcl* (Bupropion Hcl*) 100 Mg Tablet, 100 MG PO BID, TAB 08/17/18 Salmeterol Xinaf/Fluticasone* (Advair*) 250-50 Diskus Inhaler, 1 INH INHALATION BID, #1 INHALER 08/17/18 Albuterol Sulfate* (Proair HFA*) 8.5 Gm Hfa.aer.ad, 2 PUFF INH Q4H PRN for WHEEZING AND SOB, #1 INHALER 08/17/18 Pregabalin* (Lyrica*) 100 Mg Capsule, 100 MG PO TID, CAP 08/17/18 Discontinued Reported Medications Levofloxacin* (Levaquin*) 500 Mg Tablet, 500 MG PO DAILY, TAB 07/30/18 Metronidazole* (Metronidazole*) 500 Mg Tablet, 500 MG PO TID, TAB 07/30/18 Meloxicam* (Meloxicam*) 7.5 Mg/5 Ml Oral.susp, 15 MG PO DAILY, #300 ML 07/28/18 Pregabalin* (Lyrica*) 100 Mg Capsule, 100 MG PO TID, CAP 07/28/18 Ferrous Sulfate* (Ferrous Sulfate*) 325 Mg Tabec, PO DAILY, TAB 07/28/18 Ranitidine Hcl* (Zantac*) 300 Mg Tablet, 300 MG PO HS, #30 TAB 07/28/18 Dicyclomine HCl (Dicyclomine HCl) 10 Mg Capsule, 10 MG PO TID 07/28/18 Venlafaxine Hcl* (Venlafaxine Hcl*) 75 Mg Tablet, 75 MG PO DAILY, TAB 07/28/18 Aspirin (Low Dose Aspirin) 81 Mg Tablet.dr, 81 MG PO DAILY, #30 TAB 01/11/16 Omeprazole* (Omeprazole*) 40 Mg Capsule.dr, 40 MG PO DAILY, #30 CAP 01/11/16 Sitagliptin* (Januvia*) 100 Mg Tablet, 100 MG PO DAILY, #30 TAB 01/11/16 Ranitidine Hcl* (Ranitidine Hcl*) 150 Mg Tablet, 150 MG PO HS, #30 TAB 01/11/16 Metoprolol Tartrate* (Lopressor*) 25 Mg Tablet, 25 MG PO DAILY, #60 TAB 01/11/16 Clonidine Hcl* (Clonidine Hcl*) 0.1 Mg Tab, 0.1 MG PO DAILY, TAB 01/11/16 Metformin Hcl* (Metformin Hcl*) 1,000 Mg Tablet, 1000 MG PO BID, #60 07/28/15 Insulin Regular, Human (Humulin R) 100 Units/Ml Vial, 0 SC 10AM 5PM MIDNIGHT, VIAL 07/28/15 Bupropion Hcl* (Bupropion Hcl*) 100 Mg Tablet, 100 MG PO BID, #90 07/28/15 Alprazolam* (Alprazolam*) 0.5 Mg Tablet, 0.5 MG PO BID, #60 07/28/15 Triazolam* (Triazolam*) 0.25 Mg Tablet, 0.25 MG PO QHS PRN for SLEEP, #30 07/28/15 Lisinopril* (Lisinopril*) 20 Mg Tablet, 20 MG PO DAILY, #30 07/28/15 Discontinued Scripts Salmeterol Xinaf/Fluticasone* (Advair*) 250-50 Diskus Inhaler, 1 INH INHALATION BID, #1 INHALER Prov:ELVI ADAMS MD 05/06/17 Albuterol Sulfate* (Proair HFA*) 8.5 Gm Hfa.aer.ad, 2 PUFF INH Q4, #1 INHALER Prov:ELVI ADAMS MD 05/06/17 Allergies Allergies: Coded Allergies: No Known Allergy (Unverified , 08/17/18) PMhx/Soc History of Surgery: Yes (cholecystectomy) Anesthesia Reaction: No Hx Neurological Disorder: No Hx Respiratory Disorders: Yes (Asthma, PNA) Hx Cardiac Disorders: Yes (htn, dm) Hx Psychiatric Problems: Yes (Depression, Anxiety) Hx Miscellaneous Medical Probl: Yes (Insomnia) Hx Alcohol Use: No Hx Substance Use: No Hx Tobacco Use: No Smoking Status: Never smoker FmHx Family History: diabetes Physical Exam Vitals Vital Signs Date Temp Pulse Resp B/P (MAP) Pulse Ox O2 O2 Flow FiO2 Time Delivery Rate 08/17/18 101 18 96 21 18:44 08/17/18 101 18 95 Room Air 18:33 4/25/19 98.6 107 24 174/98 93 16:55 (123) Physical Exam General: Well developed, well nourished, no acute distress Head: Normocephalic, atraumatic. Eyes: Pupils equally reactive, EOM intact ENT: Moist mucous membranes Neck: Supple, no lymphadenopathy Respiratory: Very scant wheezing. Patient seems to have forced expiratory effort that appears to be somewhat behavioral. Good aeration, no distress. Cardiovascular: RRR, no murmurs, rubs, or gallops Abdominal: Soft, non-tender, non-distended, no peritoneal signs : Deferred MSK: No edema, no unilateral swelling, 5/5 strength Neurologic: Alert and oriented, moving all extremities, normal speech, no focal weakness, no cerebellar signs Skin: No rash Psych: Normal mood Results 24 hrs Current Medications Medications Dose Sig/Lino Start Time Status Last (Trade) Ordered Route PRN Stop Time Admin Dose Reason Admin Albuterol 5 mg ONCE STAT 08/17/18 DC 08/17/18 (Proventil NEB 18:36 18:48 0.083% (Neb)) 08/17/18 18:37 10 mg ONCE STAT 08/17/18 DC 08/17/18 Dexamethasone IM 18:36 18:53 (Decadron) 08/17/18 18:37 Procedures/MDM MEDICAL DECISION MAKING: The patient presentation is very consistent with very mild asthma exacerbation. No signs or symptoms concerning for pneumonia, pulmonary embolism or pneumothorax. No indication for chest x-ray imaging. The patient seems to have forced wheezing on exhalation but is able to talk and prolonged sentences without respiratory distress. Saturations are 96 and above. Very scant wheezing with excellent aeration noted on lung examination. ER COURSE: * Patient was given a breathing treatment. Decadron. The patient continues to be well-appearing in the emergency room setting I believe is safe for discharge. CONSULTATION: None DISPOSITION PLAN: The patient does not have an identifiable emergent medical condition that warrants inpatient hospitalization at this time. The patient is deemed safe for discharge with outpatient follow-up. We discussed follow up with the patient's primary care doctor within 24 to 48 hours as needed. We also discussed return to the emergency room for worsening symptoms or worsening condition. Outpatient referral: None required Discharge Medications: Albuterol for nebulizer machine at home Departure Diagnosis: Primary Impression: Asthma with acute exacerbation Asthma severity: mild Asthma persistence: unspecified Qualified Codes: J45.901 - Unspecified asthma with (acute) exacerbation Condition: Stable Patient Instructions: Asthma Medications Referrals: YOSVANY MAY MD (PCP) Additional Instructions: Call your primary care doctor TOMORROW for an appointment during the next 1 WEEK.Tell the social secretary that you were referred from this facility.See the doctor sooner or return here if your condition worsens before your appointment time. PACO SOLIS MD Aug 17, 2018 20:03
[2018-08-17 20:20] VITALS: BP 155/87; PULSE 97; RESP 20
== END 2018-08-17 20:20 | disposition home or self-care (01) ==
LOC: E/R 16:36
DX: J45.901 Unspecified asthma with (acute) exacerbation (principal); I10 Essential (primary) hypertension; E11.9 Type 2 diabetes mellitus without complications; Z79.4 Long term (current) use of insulin
CPT/HCPCS: 94664; 96372; 99284; J1100

== ENCOUNTER 2018-09-26 15:48 | Emergency (ER) | payer OTHER ==
[~2018-09-26] VITALS: Ht 177.8 cm; Wt 117.3 kg
[~2018-09-26 15:48] MED LIST changes: +ALBU2.5V3 NEB; -ALPR0.5T6 PO; -ASPI81TA52 PO; +ERGO500013 PO; -INSU100V14 SC; +INSU500I SQ; -LEVO500T48 PO; -MELO7.5O PO; +METO-448 PO; -METO25TA4 PO; -METR-122 PO; -RANI150T5 PO; +RANI300T PO; -RANI300T3 PO; -TRIA0.2579 PO; +VENL75CA89 PO; -VENL75TA PO
[2018-09-26 15:55] VITALS: BP 177/55; PULSE 90; RESP 20; Ht 177.8 cm; Wt 117.3 kg
[2018-09-26] MEDS ORDERED: ALBUTEROL 0.5% (NEB) 2.5 MG/0.5 ML AMP INH STA ×2 (16:24→17:44)
--- NOTE | 2018-09-26 18:35 | ERD ---
ER Documentation Chief Complaint Chief Complaint COUGH & CONGESTION [id number] HX:ASTHMA HPI 58-year-old female presents with a history of asthma, and a cough x1 week. She reports that she was in the ER last month for an asthma exacerbation and was discharged with albuterol for her nebulizer. In Addition she has a pro-air inhaler, and Advair Diskus that she uses on a regular basis. She states that her cough is been going on for over a week and she is producing green phlegm. She also reports fevers and chills at night times. She has a past medical history of diabetes and states that last time she received steroids her sugar le vels rocketed up to 500-600. He denies smoking. She states she is just tired of coughing at this point. ROS All systems reviewed and are negative except as per history of present illness. Medications Home Meds Active Scripts Benzonatate* (Tessalon Perle*) 100 Mg Capsule, 100 MG PO Q8H PRN for COUGH, #30 CAP Prov:RISHI PRIETO PA-C 09/26/18 Albuterol Sulfate* (Albuterol Sulfate* Neb) 0.083%-3 Ml Neb, 2.5 MG NEB Q4 PRN for SHORTNESS OF BREATH, #30 EA Prov:PACO SOLIS MD 08/17/18 Reported Medications Metoprolol Tartrate* (Lopressor*) 25 Mg Tab, 25 MG PO BID, #60 TAB 08/17/18 Clonidine Hcl* (Clonidine Hcl*) 0.1 Mg Tab, 0.1 MG PO DAILY, TAB 08/17/18 Lisinopril* (Lisinopril*) 20 Mg Tablet, 20 MG PO DAILY, #30 TAB 08/17/18 Insulin Regular, Human (Humulin R U-500 Kwikpen) 500 Unit/1 Ml Insuln.pen, 5 UNIT SQ QPM 08/17/18 Insulin Regular, Human (Humulin R U-500 Kwikpen) 500 Unit/1 Ml Insuln.pen, 10 UNIT SQ QAM 08/17/18 Ergocalciferol (Vitamin D2) (VITAMIN D2) 50,000 Unit Capsule, 58574 UNIT PO Q7D, CAP 08/17/18 Omeprazole* (Omeprazole*) 40 Mg Capsule.dr, 40 MG PO DAILY, #30 CAP 08/17/18 Metformin Hcl* (Metformin Hcl*) 1,000 Mg Tablet, 1000 MG PO WITH BREAKFAST DINNE, #60 TAB 08/17/18 Ranitidine Hcl* (Ranitidine Hcl*) 300 Mg Tablet, 300 MG PO HS, #30 TAB 08/17/18 Dicyclomine HCl (Dicyclomine HCl) 10 Mg Capsule, 10 MG PO TID 08/17/18 Ferrous Sulfate* (Ferrous Sulfate*) 325 Mg Tabec, 325 MG PO BID, TAB 08/17/18 Sitagliptin* (Januvia*) 100 Mg Tablet, 100 MG PO DAILY, #30 TAB 08/17/18 Venlafaxine Hcl* (Venlafaxine Hcl ER*) 75 Mg Cap.er.24h, 75 MG PO DAILY, CAP 08/17/18 Bupropion Hcl* (Bupropion Hcl*) 100 Mg Tablet, 100 MG PO BID, TAB 08/17/18 Salmeterol Xinaf/Fluticasone* (Advair*) 250-50 Diskus Inhaler, 1 INH INHALATION BID, #1 INHALER 08/17/18 Albuterol Sulfate* (Proair HFA*) 8.5 Gm Hfa.aer.ad, 2 PUFF INH Q4H PRN for WHEEZING AND SOB, #1 INHALER 08/17/18 Pregabalin* (Lyrica*) 100 Mg Capsule, 100 MG PO TID, CAP 08/17/18 Allergies Allergies: Coded Allergies: No Known Allergy (Unverified , 08/17/18) PMhx/Soc History of Surgery: Yes (cholecystectomy) Anesthesia Reaction: No Hx Neurological Disorder: No Hx Respiratory Disorders: Yes (Asthma, PNA) Hx Cardiac Disorders: Yes (htn, dm) Hx Psychiatric Problems: Yes (Depression, Anxiety) Hx Miscellaneous Medical Probl: Yes (Insomnia) Hx Alcohol Use: No Hx Substance Use: No Hx Tobacco Use: No FmHx Family History: No diabetes, No coronary disease, No other Physical Exam Vitals Vital Signs Date Temp Pulse Resp B/P (MAP) Pulse Ox O2 O2 Flow FiO2 Time Delivery Rate 09/26/18 111 20 96 Aerosol 21 18:07 09/26/18 95 20 95 Aerosol 21 16:43 09/26/18 99.1 90 20 177/55 95 15:55 (95) Physical Exam GENERAL: The patient is in no acute distress HEENT: Atraumatic. Pupils equal, round, and reactive to light. Oropharynx clear pink and moist CHEST: Severe wheezing throughout upper and lower lung toribio bilat HEART: Regular rate and rhythm.. ABDOMEN:Soft, nontender. NEUROLOGIC: Alert and oriented. Cranial nerves II through XII intact. Result Diagram: 09/26/18 1659 09/26/18 1659 Results 24 hrs Laboratory Tests Test 09/26/18 16:59 White Blood Count 16.2 10^3/ul Red Blood Count 4.91 10^6/ul Hemoglobin 13.3 g/dl Hematocrit 41.8 % Mean Corpuscular Volume 85.1 fl Mean Corpuscular Hemoglobin 27.1 pg Mean Corpuscular Hemoglobin Concent 31.8 g/dl Red Cell Distribution Width 15.8 % Platelet Count 267 10^3/UL Mean Platelet Volume 9.4 fl Immature Granulocytes % 0.600 % Neutrophils % 66.6 % Lymphocytes % 24.6 % Monocytes % 4.2 % Eosinophils % 3.5 % Basophils % 0.5 % Nucleated Red Blood Cells % 0.0 /100WBC Immature Granulocytes # 0.100 10^3/ul Neutrophils # 10.8 10^3/ul Lymphocytes # 4.0 10^3/ul Monocytes # 0.7 10^3/ul Eosinophils # 0.6 10^3/ul Basophils # 0.1 10^3/ul Nucleated Red Blood Cells # 0.0 10^3/ul Sodium Level 145 mmol/L Potassium Level 4.6 mmol/L Chloride Level 108 mmol/L Carbon Dioxide Level 24 mmol/L Anion Gap 13 Blood Urea Nitrogen 19 mg/dl Creatinine 0.93 mg/dl Est Glomerular Filtrat Rate mL/min > 60 mL/min Glucose Level 244 mg/dl Calcium Level 9.6 mg/dl Current Medications Medications Dose Sig/Lino Start Time Status Last (Trade) Ordered Route PRN Stop Time Admin Dose Reason Admin Albuterol 5 mg ONCE STAT 09/26/18 DC 09/26/18 (Proventil INH 16:24 09/26/18 16:41 0.5% (Neb)) 16:28 Albuterol 10 mg ONCE STAT 09/26/18 DC 09/26/18 (Proventil INH 17:44 09/26/18 18:04 0.5% (Neb)) 17:45 Procedures/MDM ED COURSE: The patient was stable throughout ED course. I kept the patient informed of laboratory and diagnostic imaging results throughout the ED course. DIAGNOSTIC IMAGING: Read by radiologist. PROCEDURE: XR Chest 1 View. CLINICAL INDICATION: Shortness of breath. Asthma. TECHNIQUE: Single view of the chest was obtained. COMPARISON: DR LIN 07/30/2018 FINDINGS: Support lines and tubes: None. Mediastinum: Within normal limits of size. Lungs: Subsegmental atelectasis in the bilateral lower lobes. No pneumothorax. Osseous structures: Intact. Degenerative changes in the shoulders. Other: None. IMPRESSION: Subsegmental atelectasis in the bilateral lower lobes. RPTAT: AA .Vik Monroe MD, MD Date Time Electronically viewed and signed by .Vik Monroe MD, MD on 09/26/2018 17:02 PROCEDURES: Breathing treatments MEDICATIONS GIVEN: Albuterol, oxygen Patient tolerated medication well with no adverse reactions. Patient reported improvement in pain. MEDICAL DECISION MAKING: Patient is a 58-year-old female presenting with asthma exacerbation. She report s that she has been coughing for over a week with green phlegm. Lab work and chest x-ray was done to rule out pneumonia infection. Patient states that she receive any steroids because that rockets her blood sugar levels to 500-600. After her first breathing treatment she reports that she felt a lot better and breathing more comfortably however she was still wheezing. After the second breathing treatment she reports that she felt much better and her wheezing was greatly reduced. History and Physical along with other data not c/w emergent process including pneumonia, PE, abscess, pleural effusion or pneumothorax. Discussed with patient the risk of giving her steroids with her diabetes and did not want any steroids at this time. Her vital signs were reviewed. Patient is afebrile. Patient was not hypoxic. Patient was hemodynamically stable. PRESCRIPTION: Tessalon Perles DISCHARGE: At this time, patient is stable for discharge and outpatient management. I have instructed the patient to follow-up with his/her primary care physician in 1-2 days. I have discussed with the patient the possibility of needing to see a specialist for further workup and imaging studies if symptoms persist. I have instructed the patient to promptly return to the ER for any new or worsening symptoms including increased pain, fever, nausea, vomiting, weakness or LOC. The patient and/or family expressed understanding of and agreement with this plan. All questions were answered. Home care instructions were provided. Disclaimer: Inadvertent spelling and grammatical errors are likely due to EHR/dictation software use and do not reflect on the overall quality of patient care. Also, please note that the electronic time recorded on this note does not necessarily reflect the actual time of the patient encounter. Departure Condition: Fair Patient Instructions: Asthma Referrals: [facility] Additional Instructions: Continue using inhalers and nebulizer at home. Report back to ER if symptoms worsen, breathing difficulties, SOB. Call your primary care doctor TOMORROW for an appointment during the next 1-2 days.See the doctor sooner or return here if your condition worsens before your appointment time. RISHI PRIETO PA-C Sep 26, 2018 18:34
[2018-09-26] MEDS ORDERED: BENZ-6 PO (18:37)
== END 2018-09-26 18:58 | disposition home or self-care (01) ==
LOC: FTE 15:48
DX: J45.901 Unspecified asthma with (acute) exacerbation (principal); I10 Essential (primary) hypertension; E11.9 Type 2 diabetes mellitus without complications; Z79.4 Long term (current) use of insulin
CPT/HCPCS: 71045; 80048; 85025; 94640; 94664

== ENCOUNTER 2018-09-28 16:10 | Emergency (ER) | payer OTHER ==
[~2018-09-28] VITALS: Ht 175.3 cm; Wt 117.7 kg
[~2018-09-28 16:10] MED LIST changes: +BENZ-6 PO
[2018-09-28 16:21] VITALS: BP 146/79; PULSE 107; RESP 20; Ht 175.3 cm; Wt 117.7 kg
[2018-09-28] MEDS ORDERED: PRED20TA PO (16:58)
--- NOTE | 2018-09-28 17:12 | ERD ---
ER Documentation Chief Complaint Chief Complaint INTERMITTENT WHEEZING X 10 DAYS HPI Patient is a 58-year-old female with diabetes and asthma who presents with shortness of breath. The patient was seen 2 days ago for asthma and had x-ray and laboratory studies done. X-ray was negative for pneumonia. The patient was given pro-air and has been using that but was not given steroids because the last time she was given a shot of steroids the sugars went up. Patient is speaking in full sentences. The patient had pain with coughing over the past 10 days. She has an appointment scheduled with her primary doctor on Tuesday. Upon review of old medical records the patient has multiple visits. Her primary doctor is Dr. Barahona. ROS All systems reviewed and are negative except as per history of present illness. Medications Home Meds Active Scripts Prednisone* (Prednisone*) 20 Mg Tab, 60 MG PO DAILY for 5 Days, TAB Prov:CHANEL ABREU MD 09/28/18 Benzonatate* (Tessalon Perle*) 100 Mg Capsule, 100 MG PO Q8H PRN for COUGH, #30 CAP Prov:RISHI PRIETO PA-C 09/26/18 Albuterol Sulfate* (Albuterol Sulfate* Neb) 0.083%-3 Ml Neb, 2.5 MG NEB Q4 PRN for SHORTNESS OF BREATH, #30 EA Prov:PACO SOLIS MD 08/17/18 Reported Medications Metoprolol Tartrate* (Lopressor*) 25 Mg Tab, 25 MG PO BID, #60 TAB 08/17/18 Clonidine Hcl* (Clonidine Hcl*) 0.1 Mg Tab, 0.1 MG PO DAILY, TAB 08/17/18 Lisinopril* (Lisinopril*) 20 Mg Tablet, 20 MG PO DAILY, #30 TAB 08/17/18 Insulin Regular, Human (Humulin R U-500 Kwikpen) 500 Unit/1 Ml Insuln.pen, 5 UNIT SQ QPM 08/17/18 Insulin Regular, Human (Humulin R U-500 Kwikpen) 500 Unit/1 Ml Insuln.pen, 10 UNIT SQ QAM 08/17/18 Ergocalciferol (Vitamin D2) (VITAMIN D2) 50,000 Unit Capsule, 32329 UNIT PO Q7D, CAP 08/17/18 Omeprazole* (Omeprazole*) 40 Mg Capsule.dr, 40 MG PO DAILY, #30 CAP 08/17/18 Metformin Hcl* (Metformin Hcl*) 1,000 Mg Tablet, 1000 MG PO WITH BREAKFAST DINNE, #60 TAB 08/17/18 Ranitidine Hcl* (Ranitidine Hcl*) 300 Mg Tablet, 300 MG PO HS, #30 TAB 08/17/18 Dicyclomine HCl (Dicyclomine HCl) 10 Mg Capsule, 10 MG PO TID 08/17/18 Ferrous Sulfate* (Ferrous Sulfate*) 325 Mg Tabec, 325 MG PO BID, TAB 08/17/18 Sitagliptin* (Januvia*) 100 Mg Tablet, 100 MG PO DAILY, #30 TAB 08/17/18 Venlafaxine Hcl* (Venlafaxine Hcl ER*) 75 Mg Cap.er.24h, 75 MG PO DAILY, CAP 08/17/18 Bupropion Hcl* (Bupropion Hcl*) 100 Mg Tablet, 100 MG PO BID, TAB 08/17/18 Salmeterol Xinaf/Fluticasone* (Advair*) 250-50 Diskus Inhaler, 1 INH INHALATION BID, #1 INHALER 08/17/18 Albuterol Sulfate* (Proair HFA*) 8.5 Gm Hfa.aer.ad, 2 PUFF INH Q4H PRN for WHEEZING AND SOB, #1 INHALER 08/17/18 Pregabalin* (Lyrica*) 100 Mg Capsule, 100 MG PO TID, CAP 08/17/18 Allergies Allergies: Coded Allergies: No Known Allergy (Unverified , 08/17/18) PMhx/Soc History of Surgery: Yes (cholecystectomy) Anesthesia Reaction: No Hx Neurological Disorder: No Hx Respiratory Disorders: Yes (Asthma, PNA) Hx Cardiac Disorders: Yes (htn, dm) Hx Psychiatric Problems: Yes (Depression, Anxiety) Hx Miscellaneous Medical Probl: Yes (Insomnia) Hx Alcohol Use: No Hx Substance Use: No Hx Tobacco Use: No FmHx Family History: No diabetes Physical Exam Vitals Vital Signs Date Temp Pulse Resp B/P (MAP) Pulse Ox O2 O2 Flow FiO2 Time Delivery Rate 09/28/18 98.3 107 20 146/79 92 16:21 (101) Physical Exam Const: No acute distress Head: Atraumatic Eyes: Normal Conjunctiva ENT: Normal External Ears, Nose and Mouth. Neck: Full range of motion. No meningismus. Resp: Wheezing in diffuse lung toribio, smiling without signs of retractions or accessory muscle use. No respiratory distress Cardio: Regular rate and rhythm, no murmurs Abd: Soft, non tender, non distended. Normal bowel sounds Skin: No petechiae or rashes Back: No midline or flank tenderness Ext: No cyanosis, or edema Neur: Awake and alert Psych: Normal Mood and Affect Procedures/MDM Patient is a 58-year-old female who presents with asthma exacerbation. I believe she requires steroids to reduce information in the lungs. I told her that this will cause her sugars to go up and she will need to watch her sugars closely and discuss with her doctor about further treatment. She wants antibiotics but I do not believe that antibiotics are indicated in this case. I doubt bacterial infection. I believe this is likely a viral illness that triggered an asthma exacerbation. The patient can return for any worsening symptoms. I doubt pneumonia, pneumothorax, pulmonary embolism, or aortic dissection. Departure Diagnosis: Primary Impression: Asthma Asthma severity: unspecified severity Asthma persistence: unspecified Asthma complication type: with acute exacerbation Qualified Codes: J45.901 - Unspecified asthma with (acute) exacerbation Additional Impression: Wheezing Condition: Fair Patient Instructions: Asthma, Acute (Adult) Additional Instructions: Call your primary care doctor TOMORROW for an appointment during the next 1-2 days.See the doctor sooner or return here if your condition worsens before your appointment time. CHANEL ABREU MD Sep 28, 2018 17:12
== END 2018-09-28 17:10 | disposition home or self-care (01) ==
LOC: FTE 16:10
DX: J45.901 Unspecified asthma with (acute) exacerbation (principal); E11.9 Type 2 diabetes mellitus without complications; I10 Essential (primary) hypertension; Z79.4 Long term (current) use of insulin
CPT/HCPCS: 99283

== ENCOUNTER 2018-11-18 21:24 | Emergency (ER) | payer OTHER ==
[~2018-11-18] VITALS: Ht 175.3 cm; Wt 118.4 kg
[~2018-11-18 21:24] MED LIST changes: +PRED20TA PO
[2018-11-18 21:33] VITALS: Ht 175.3 cm; Wt 118.4 kg
[2018-11-18] MEDS ORDERED: KETOROLAC 15 MG INJ IV STA (22:50)
[2018-11-18] MEDS ORDERED: SOD CHLORIDE 0.9% 1,000 ML IV STA (22:50)
[2018-11-18] MEDS ORDERED: DICYCLOMINE 20 MG INJ IM ONE (23:00)
--- NOTE | 2018-11-18 23:46 | ERD ---
ER Documentation Chief Complaint Chief Complaint LEFT LOWER ABD PAIN/SPASMS; STATES SX SIMILAR TO PREVIOUS IBS EXACERBATIONS HPI This is a 58-year-old female history of irritable bowel syndrome who presents to the emergency room with an exacerbation of pain. She describes approximately 24 hours of left upper abdominal discomfort that is spasmodic, cramping, similar to exacerbations of IBS in the past. She had some beans earlier in the day. Patient denies any fevers or chills nausea vomiting diarrhea or constipation. Again the pain is very similar to episodes and bouts of IBS in the past. No recent hematemesis or melena. ROS All systems reviewed and are negative except as per history of present illness. Medications Home Meds Active Scripts Prednisone* (Prednisone*) 20 Mg Tab, 60 MG PO DAILY for 5 Days, TAB Prov:CHANEL ABREU MD 09/28/18 Benzonatate* (Tessalon Perle*) 100 Mg Capsule, 100 MG PO Q8H PRN for COUGH, #30 CAP Prov:RISHI PRIETO PA-C 09/26/18 Albuterol Sulfate* (Albuterol Sulfate* Neb) 0.083%-3 Ml Neb, 2.5 MG NEB Q4 PRN for SHORTNESS OF BREATH, #30 EA Prov:PACO SOLIS MD 08/17/18 Reported Medications Metoprolol Tartrate* (Lopressor*) 25 Mg Tab, 25 MG PO BID, #60 TAB 08/17/18 Clonidine Hcl* (Clonidine Hcl*) 0.1 Mg Tab, 0.1 MG PO DAILY, TAB 08/17/18 Lisinopril* (Lisinopril*) 20 Mg Tablet, 20 MG PO DAILY, #30 TAB 08/17/18 Insulin Regular, Human (Humulin R U-500 Kwikpen) 500 Unit/1 Ml Insuln.pen, 5 UNIT SQ QPM 08/17/18 Insulin Regular, Human (Humulin R U-500 Kwikpen) 500 Unit/1 Ml Insuln.pen, 10 UNIT SQ QAM 08/17/18 Ergocalciferol (Vitamin D2) (VITAMIN D2) 50,000 Unit Capsule, 07363 UNIT PO Q7D, CAP 08/17/18 Omeprazole* (Omeprazole*) 40 Mg Capsule.dr, 40 MG PO DAILY, #30 CAP 08/17/18 Metformin Hcl* (Metformin Hcl*) 1,000 Mg Tablet, 1000 MG PO WITH BREAKFAST DINNE, #60 TAB 08/17/18 Ranitidine Hcl* (Ranitidine Hcl*) 300 Mg Tablet, 300 MG PO HS, #30 TAB 08/17/18 Dicyclomine HCl (Dicyclomine HCl) 10 Mg Capsule, 10 MG PO TID 08/17/18 Ferrous Sulfate* (Ferrous Sulfate*) 325 Mg Tabec, 325 MG PO BID, TAB 08/17/18 Sitagliptin* (Januvia*) 100 Mg Tablet, 100 MG PO DAILY, #30 TAB 08/17/18 Venlafaxine Hcl* (Venlafaxine Hcl ER*) 75 Mg Cap.er.24h, 75 MG PO DAILY, CAP 08/17/18 Bupropion Hcl* (Bupropion Hcl*) 100 Mg Tablet, 100 MG PO BID, TAB 08/17/18 Salmeterol Xinaf/Fluticasone* (Advair*) 250-50 Diskus Inhaler, 1 INH INHALATION BID, #1 INHALER 08/17/18 Albuterol Sulfate* (Proair HFA*) 8.5 Gm Hfa.aer.ad, 2 PUFF INH Q4H PRN for WHEEZING AND SOB, #1 INHALER 08/17/18 Pregabalin* (Lyrica*) 100 Mg Capsule, 100 MG PO TID, CAP 08/17/18 Allergies Allergies: Coded Allergies: No Known Allergy (Unverified , 08/17/18) PMhx/Soc History of Surgery: Yes (cholecystectomy) Anesthesia Reaction: No Hx Neurological Disorder: No Hx Respiratory Disorders: Yes (Asthma, PNA) Hx Cardiac Disorders: Yes (htn) Hx Psychiatric Problems: Yes (Depression, Anxiety) Hx Miscellaneous Medical Probl: Yes (Insomnia) Hx Alcohol Use: No Hx Substance Use: No Hx Tobacco Use: No Smoking Status: Never smoker FmHx Family History: No diabetes Physical Exam Vitals Vital Signs Date Temp Pulse Resp B/P (MAP) Pulse Ox O2 O2 Flow FiO2 Time Delivery Rate 11/18/18 85 16 141/61 96 Room Air 22:55 (87) 11/18/18 99.2 98 16 115/56 94 21:33 (75) Physical Exam General: Well developed, well nourished, no acute distress Head: Normocephalic, atraumatic. Eyes: Pupils equally reactive, EOM intact ENT: Moist mucous membranes Neck: Supple, no lymphadenopathy Respiratory: Lungs clear bilaterally, no distress Cardiovascular: RRR, no murmurs, rubs, or gallops Abdominal: Soft, non-tender, non-distended, no peritoneal signs, negative Pascual sign, no tenderness to McBurney's point, no pulsatile mass : Deferred MSK: No edema, no unilateral swelling, 5/5 strength Neurologic: Alert and oriented, moving all extremities, normal speech, no focal weakness, no cerebellar signs Skin: No rash Psych: Normal mood Results 24 hrs Laboratory Tests Test 11/18/18 23:15 Bedside Urine pH (LAB) 5.5 Bedside Urine Protein (LAB) 1+ Bedside Urine Glucose (UA) Negative Bedside Urine Ketones (LAB) Trace Bedside Urine Blood Negative Bedside Urine Nitrite (LAB) Negative Bedside Urine Leukocyte Esterase (L 2+ Current Medications Medications Dose Sig/Lino Start Time Status Last (Trade) Ordered Route PRN Stop Time Admin Dose Reason Admin Sodium 1,000 ml @ Q1H STAT 11/18/18 11/18/18 Chloride 1,000 mls/hr IV 22:50 23:21 11/18/18 23:49 Ketorolac 15 mg ONCE STAT 11/18/18 DC 11/18/18 Tromethamine IV 22:50 23:21 (Toradol) 11/18/18 22:51 Dicyclomine 10 mg ONCE ONCE 11/18/18 DC 11/18/18 HCl IM 23:00 23:21 (Bentyl) 11/18/18 23:01 Procedures/MDM MEDICAL DECISION MAKING: Patient presentation seems to be consistent with an acute flare of IBS. The patient has a benign abdominal examination without concern for acute interabdo loraine process, bowel obstruction or other process such as acute appendicitis. Patient has a very similar episodes in the past related to IBS flare. Likely food trigger at this time. I do not believe laboratory testing or diagnostic imaging is necessary at this time given benign examination and history described above. Patient will benefit from symptom control and outpatient primary care follow-up. ER COURSE: * The patient received IV fluids, nonsteroidal anti-inflammatory and Bentyl. Symptoms improved. * At this point the patient is safe for discharge, return precautions were discussed and understood. CONSULTATION: None DISPOSITION PLAN: The patient does not have an identifiable emergent medical condition that warrants inpatient hospitalization at this time. The patient is deemed safe for discharge with outpatient follow-up. We discussed follow up with the patient's primary care doctor within 24 to 48 hours as needed. We also discussed return to the emergency room for worsening symptoms or worsening condition. Outpatient referral: None required Discharge Medications: None required Departure Diagnosis: Primary Impression: Generalized abdominal pain Additional Impression: Irritable bowel syndrome Irritable bowel syndrome type: without diarrhea Qualified Codes: K58.9 - Irritable bowel syndrome without diarrhea Condition: Stable Patient Instructions: Irritable Bowel Syndrome Additional Instructions: Call your primary care doctor TOMORROW for an appointment during the next 1 WEEK.Tell the clinical secretary that you were referred from this facility.See the doctor sooner or return here if your condition worsens before your appointment time. PACO SOLIS MD Nov 18, 2018 23:46
[2018-11-19 00:25] VITALS: BP 145/68; PULSE 83; RESP 18
== END 2018-11-19 00:36 | disposition home or self-care (01) ==
LOC: E/R 21:24
DX: K58.9 Irritable bowel syndrome, unspecified (principal); I10 Essential (primary) hypertension; J45.909 Unspecified asthma, uncomplicated; Z79.4 Long term (current) use of insulin
CPT/HCPCS: 81003; 96372; 96374; 99284; J0500; J1885; J7030

== ENCOUNTER 2018-12-02 15:12 | Inpatient (IN) | payer OTHER ==
[~2018-12-02] VITALS: Ht 175.3 cm; Wt 117.0 kg
[~2018-12-02 15:12] MED LIST changes: +HYDR-842 PO; +Insulin Glargine SC; +LEVO750T25 PO; +PRED10TA PO
[2018-12-02] MEDS ORDERED: IPRATROPIUM (NEB) 0.5 MG/2.5 ML AMP NEB STA (15:51)
[2018-12-02] MEDS ORDERED: ALBUTEROL 0.5% (NEB) 2.5 MG/0.5 ML AMP INH STA (15:51)
[2018-12-02] MEDS ORDERED: DEXAMETHASONE 10 MG/ML 1 ML INJ IM STA (15:51)
--- NOTE | 2018-12-02 17:39 | ERD ---
ER Documentation Chief Complaint Chief Complaint pt reoprts "asthmaexacerbation" since Tuesday HPI 58-year-old female presents to ED complaining of asthma exacerbation x4 to 5 days. He states that she started feeling bad about 5 days ago. She states she had a fever of 101 F, sore throat and just felt bad. She states to [address] she started having bad asthma. She reports shortness of breath. She has been to this emergency department in the past and was treated with breathing treatments and steroids which slightly improved her symptoms. She currently has a can crimper Dr. Moises Ramires who she has an appointment with on December 18, 2018. Her primary care provider is Dr. Barahona. She reports that she is currently taking pro-air inhaler, Advair Diskus, albuterol nebulizer, Spiriva 2.5 MCG, and Singulair daily. She states that she has concerns for pneumonia which is why she is at the emergency department today. She reports past medical history of hypertension, obesity, diabetes type 2 ROS All systems reviewed and are negative except as per history of present illness. Medications Home Meds Active Scripts Prednisone* (Prednisone*) 20 Mg Tab, 60 MG PO DAILY for 5 Days, TAB Prov:CHANEL ABREU MD 09/28/18 Benzonatate* (Tessalon Perle*) 100 Mg Capsule, 100 MG PO Q8H PRN for COUGH, #30 CAP Prov:RISHI PRIETO PA-C 09/26/18 Albuterol Sulfate* (Albuterol Sulfate* Neb) 0.083%-3 Ml Neb, 2.5 MG NEB Q4 PRN for SHORTNESS OF BREATH, #30 EA Prov:PACO SOLIS MD 08/17/18 Reported Medications Metoprolol Tartrate* (Lopressor*) 25 Mg Tab, 25 MG PO BID, #60 TAB 08/17/18 Clonidine Hcl* (Clonidine Hcl*) 0.1 Mg Tab, 0.1 MG PO DAILY, TAB 08/17/18 Lisinopril* (Lisinopril*) 20 Mg Tablet, 20 MG PO DAILY, #30 TAB 08/17/18 Insulin Regular, Human (Humulin R U-500 Kwikpen) 500 Unit/1 Ml Insuln.pen, 5 UNIT SQ QPM 08/17/18 Insulin Regular, Human (Humulin R U-500 Kwikpen) 500 Unit/1 Ml Insuln.pen, 10 UNIT SQ QAM 08/17/18 Ergocalciferol (Vitamin D2) (VITAMIN D2) 50,000 Unit Capsule, 72813 UNIT PO Q7D, CAP 08/17/18 Omeprazole* (Omeprazole*) 40 Mg Capsule.dr, 40 MG PO DAILY, #30 CAP 08/17/18 Metformin Hcl* (Metformin Hcl*) 1,000 Mg Tablet, 1000 MG PO WITH BREAKFAST DINNE, #60 TAB 08/17/18 Ranitidine Hcl* (Ranitidine Hcl*) 300 Mg Tablet, 300 MG PO HS, #30 TAB 08/17/18 Dicyclomine HCl (Dicyclomine HCl) 10 Mg Capsule, 10 MG PO TID 08/17/18 Ferrous Sulfate* (Ferrous Sulfate*) 325 Mg Tabec, 325 MG PO BID, TAB 08/17/18 Sitagliptin* (Januvia*) 100 Mg Tablet, 100 MG PO DAILY, #30 TAB 08/17/18 Venlafaxine Hcl* (Venlafaxine Hcl ER*) 75 Mg Cap.er.24h, 75 MG PO DAILY, CAP 08/17/18 Bupropion Hcl* (Bupropion Hcl*) 100 Mg Tablet, 100 MG PO BID, TAB 08/17/18 Salmeterol Xinaf/Fluticasone* (Advair*) 250-50 Diskus Inhaler, 1 INH INHALATION BID, #1 INHALER 08/17/18 Albuterol Sulfate* (Proair HFA*) 8.5 Gm Hfa.aer.ad, 2 PUFF INH Q4H PRN for WHEEZING AND SOB, #1 INHALER 08/17/18 Pregabalin* (Lyrica*) 100 Mg Capsule, 100 MG PO TID, CAP 08/17/18 Allergies Allergies: Coded Allergies: No Known Allergy (Unverified , 08/17/18) PMhx/Soc History of Surgery: Yes (cholecystectomy) Anesthesia Reaction: No Hx Neurological Disorder: No Hx Respiratory Disorders: Yes (Asthma, PNA) Hx Cardiac Disorders: Yes (htn) Hx Psychiatric Problems: Yes (Depression, Anxiety) Hx Miscellaneous Medical Probl: Yes (Insomnia) Hx Alcohol Use: No Hx Substance Use: No Hx Tobacco Use: No Smoking Status: Never smoker FmHx Family History: No diabetes Physical Exam Vitals Vital Signs Date Temp Pulse Resp B/P (MAP) Pulse Ox O2 O2 Flow FiO2 Time Delivery Rate 12/02/18 98 24 97 21 16:32 12/02/18 98.5 100 24 154/70 94 15:16 (98) Physical Exam Const: No acute distress Head: Atraumatic Eyes: Normal Conjunctiva, PERRLA ENT: Normal External Ears, Nose and Mouth. Neck: Full range of motion. Resp: Significant wheezing throughout bilateral lungs Cardio: Regular rate and rhythm, no murmurs Abd: Soft, non tender. Obese Back: No midline or flank tenderness Neur: Awake and alert Psych: Normal Mood and Affect Result Diagram: 12/02/18 1627 12/02/18 1627 Results 24 hrs Laboratory Tests Test 12/02/18 16:27 12/02/18 17:58 White Blood Count 18.8 10^3/ul Red Blood Count 4.65 10^6/ul Hemoglobin 12.6 g/dl Hematocrit 40.7 % Mean Corpuscular Volume 87.5 fl Mean Corpuscular Hemoglobin 27.1 pg Mean Corpuscular Hemoglobin Concent 31.0 g/dl Red Cell Distribution Width 15.0 % Platelet Count 312 10^3/UL Mean Platelet Volume 9.4 fl Immature Granulocytes % 0.500 % Neutrophils % 74.8 % Lymphocytes % 18.3 % Monocytes % 4.7 % Eosinophils % 1.3 % Basophils % 0.4 % Nucleated Red Blood Cells % 0.0 /100WBC Immature Granulocytes # 0.090 10^3/ul Neutrophils # 14.1 10^3/ul Lymphocytes # 3.4 10^3/ul Monocytes # 0.9 10^3/ul Eosinophils # 0.3 10^3/ul Basophils # 0.1 10^3/ul Nucleated Red Blood Cells # 0.0 10^3/ul Sodium Level 140 mmol/L Potassium Level 4.4 mmol/L Chloride Level 101 mmol/L Carbon Dioxide Level 28 mmol/L Anion Gap 11 Blood Urea Nitrogen 22 mg/dl Creatinine 1.12 mg/dl Est Glomerular Filtrat Rate mL/min 50 mL/min Glucose Level 272 mg/dl Calcium Level 9.7 mg/dl Troponin I < 0.012 ng/ml POC Venous Lactate 1.5 mmol/L Current Medications Medications Dose Sig/Lino Start Time Status Last (Trade) Ordered Route PRN Stop Time Admin Dose Reason Admin Ipratropium 1.5 mg ONCE STAT 12/02/18 DC 12/02/18 [place] NEB 15:51 16:32 (Atrovent 12/02/18 15:53 0.02% (Neb)) Albuterol 15 mg ONCE STAT 12/02/18 DC 12/02/18 (Proventil INH 15:51 16:32 0.5% (Neb)) 12/02/18 15:53 10 mg ONCE STAT 12/02/18 DC 12/02/18 Dexamethasone IM 15:51 16:03 (Decadron) 12/02/18 15:53 Azithromycin 250 ml @ ONCE STAT 12/02/18 250 mls/hr IV 17:42 12/02/18 18:41 Ceftriaxone 50 ml @ ONCE STAT 12/02/18 12/02/18 Sodium 100 mls/hr IVPB 17:42 18:00 12/02/18 18:11 Ondansetron 4 mg BRIDGE ORDER 12/02/18 HCl (Zofran PRN IV 18:30 Inj) NAUSEA/VOMITI 12/03/18 18:29 NG 650 mg ER BRIDGE 12/02/18 Acetaminophen PRN PO 18:30 (Tylenol .MILD PAIN 12/03/18 18:29 Tab) 1-3 OR TEMP Procedures/MDM ED COURSE: The patient was stable throughout ED course. I kept the patient informed of laboratory and diagnostic imaging results throughout the ED course. DIAGNOSTIC IMAGING: Read by radiologist. PROCEDURE: XR Chest. CLINICAL INDICATION: Asthma TECHNIQUE: Frontal chest x-ray was obtained. COMPARISON: Chest x-ray January 11, 2016 FINDINGS: Heart is not enlarged. Mediastinum is not widened. No hilar masses seen. There is consolidation or atelectasis at the peripheral right lung base. Increased interstitial markings are noted at both lung bases. There is no effusion or pneumothorax. The osseous structures appear normal.. IMPRESSION: Increased interstitial markings lung bases. Question peripheral right basilar segmental atelectasis versus consolidation. .Lio Rocha MD, MD Date Time Electronically viewed and signed by .Lio Rocha MD, on 12/02/2018 16:42 PROCEDURES: Breathing treatment: Respiratory therapist consulted MEDICATIONS GIVEN: Albuterol nebulizer, dexamethasone, ipratropium Patient tolerated medication well with no adverse reactions. Patient reported improvement in pain. MEDICAL DECISION MAKING: Patient is a 58-year-old female presenting with significant wheezing and dyspnea. Patient was started on a breathing treatment with albuterol, ipratropium and an injection of dexamethasone. Chest x-ray was done showing consolidation in her lungs. Patient had a white blood cell count of 18.8. At this time I suspect pneumonia. I consulted with the attending physician Dr. Lacy who decided that we should admit this patient. We will start the patient on IV Rocephin and azithromycin. Will be admitted to the hospital. ADMIT PT: DISCHARGE: At this time, patient is stable for discharge and outpatient management. I have instructed the patient to follow-up with their primary care physician in 1-2 days. I have discussed with the patient the possibility of needing to see a specialist for further workup and imaging studies if symptoms persist. I have instructed the patient to promptly return to the ER for any new or worsening s ymptoms including increased pain, fever, nausea, vomiting, weakness or LOC. The patient expressed understanding of and agreement with this plan. All questions were answered. Home care instructions were provided. Disclaimer: Inadvertent spelling and grammatical errors are likely due to EHR/dictation software use and do not reflect on the overall quality of patient care. Also, please note that the electronic time recorded on this note does not necessarily reflect the actual time of the patient encounter. Case was discussed in detail with the advanced practice provider. Patient was seen independently Diagnostic assessment reviewed. I agree with the assessment and care plan as discussed. Briefly patient presents with a significant asthma exacerbation on top of the pneumonia. She is diabetic with blood sugars there is a given the elevated and elevated white blood cell count making her high risk. She appears to be significantly high risk will be admitted to the hospital for bronchodilator therapy as well as antibiotics and supportive care. I spoke with Dr. Head for admission. I also spoke with her primary doctor, who will be seeing her for endocrine consultation and blood sugar control and agreed with admission. Departure Diagnosis: Primary Impression: Pneumonia Pneumonia type: due to unspecified organism Laterality: right Lung location: lower lobe of lung Qualified Codes: J18.1 - Lobar pneumonia, unspecified organism Condition: Fair Patient Instructions: Pneumonia Referrals: [facility] RISHI PRIETO PA-C Dec 02, 2018 17:39 SEBASTIAN LACY Dec 02, 2018 18:06
[2018-12-02] MEDS ORDERED: CEFTRIAXONE 1 GM/50 ML (PMX) 50 ML IVPB STA (17:42)
[2018-12-02] MEDS ORDERED: AZITHROMYCIN 500MG/NS (PMX) 250 ML IV STA (17:42)
[2018-12-02] MEDS ORDERED: ONDANSETRON 4 MG INJ IV PRN ×2 (18:30→20:00)
[2018-12-02] MEDS ORDERED: ACETAMINOPHEN 325 MG TAB PO PRN (18:30)
[2018-12-02 20:00] VITALS: BP 135/52; PULSE 100; RESP 18
[2018-12-02] MEDS ORDERED: ZOLPIDEM 5 MG TAB PO PRN (20:00)
[2018-12-02] MEDS ORDERED: BENZONATATE 100 MG CAP PO PRN (20:00)
[2018-12-02] MEDS ORDERED: NON-FORMULARY/PATIENT OWN MED (Sitagliptin* (Januvia*) 100 MG) PO SCH (20:00)
[2018-12-02] MEDS ORDERED: GLUCAGON 1 MG INJ IM PRN (20:30)
[2018-12-02] MEDS ORDERED: GLUCOSE GEL 15 GRAM TUBE BUCCAL PRN (20:30)
[2018-12-02] MEDS ORDERED: DEXTROSE 50% 50 ML SYRINGE IV PRN ×2 (20:30)
[2018-12-02] MEDS ORDERED: GLUCOSE GEL 15 GRAM TUBE PO PRN ×2 (20:30)
[2018-12-02] MEDS: ALBUTEROL/IPRATROPIUM (NEB) 3 ML AMP HHN SCH (20:43)
[2018-12-02 21:00] VITALS: Ht 175.3 cm; Wt 117.0 kg
[2018-12-02] MEDS: DICYCLOMINE 10 MG CAP PO SCH (21:00)
[2018-12-02] MEDS ORDERED: INSULIN ASPART [NOVOLOG] 3 ML PEN SC SCH (21:00)
[2018-12-02] MEDS: BUPROPION 100 MG TAB PO SCH (21:00)
[2018-12-02] MEDS ORDERED: PREGABALIN 100 MG CAP PO SCH (21:00)
[2018-12-02] MEDS: PREGABALIN 50 MG CAP PO SCH (21:44)
[2018-12-02] MEDS: METHYLPREDNISOLONE 125 MG INJ IV SCH (21:49)
[2018-12-02] MEDS: METOPROLOL 25 MG TAB PO SCH (21:49)
[2018-12-02] MEDS ORDERED: INSULIN GLARGINE [LANTus] (100 UNITS/ML) SYG SC SCH (22:30)
[2018-12-02] MEDS: LISINOPRIL 20 MG TAB PO SCH (22:50)
[2018-12-03] MEDS: ALBUTEROL/IPRATROPIUM (NEB) 3 ML AMP HHN SCH ×5 (00:57→16:40)
[2018-12-03 02:00] VITALS: BP 107/55; PULSE 79; RESP 18
[2018-12-03] MEDS ORDERED: PANTOPRAZOLE (EC) 40 MG TAB PO SCH (06:00)
[2018-12-03] MEDS ORDERED: LEVOFLOXACIN 750 MG TABLET PO SCH (06:00)
[2018-12-03] MEDS: METHYLPREDNISOLONE 125 MG INJ IV SCH ×2 (06:12→13:25)
[2018-12-03] MEDS ORDERED: INSULIN ASPART [NOVOLOG] 3 ML PEN SC SCH ×3 (07:35→11:30)
[2018-12-03 07:50] VITALS: BP 140/63; PULSE 83; RESP 16
[2018-12-03] MEDS ORDERED: INSULIN GLARGINE [LANTus] (100 UNITS/ML) SYG SC SCH ×3 (08:00→21:00)
[2018-12-03] MEDS ORDERED: metFORMIN 500 MG TAB PO SCH (08:00)
[2018-12-03] MEDS: BUPROPION 100 MG TAB PO SCH (08:32)
[2018-12-03] MEDS: DICYCLOMINE 10 MG CAP PO SCH ×2 (08:32→12:15)
[2018-12-03] MEDS: PREGABALIN 50 MG CAP PO SCH ×2 (08:32→12:15)
[2018-12-03] MEDS: INSULIN ASPART [NOVOLOG] 3 ML PEN SC SCH ×2 (08:35→12:11)
[2018-12-03] MEDS: LISINOPRIL 20 MG TAB PO SCH (08:36)
[2018-12-03] MEDS: METOPROLOL 25 MG TAB PO SCH (08:36)
[2018-12-03] MEDS ORDERED: TIOTROPIUM 18 MCG CAPSULE INHA DEV INH SCH (09:00)
[2018-12-03] MEDS ORDERED: VENLAFAXINE (XR) 75 MG CAP PO SCH (09:00)
[2018-12-03] MEDS ORDERED: LINAGLIPTIN 5 MG TABLET PO SCH (09:00)
--- NOTE | 2018-12-03 13:24 | PDOCDIS ---
Discharge Instructions CONDITION [id number] Patient Condition: [id number] Good HOME CARE INSTRUCTIONS: [id number] Special Diet: Dwxsj7t diabetic ACTIVITY: [id number] Activity Restrictions: [id number] No Restrictions FOLLOW UP/APPOINTMENTS Follow-up Plan pcp 1 week vivienne butler 12/18 endocrinology 1 week MAMI DIAMOND MD Dec 03, 2018 13:24
[2018-12-03 14:58] VITALS: BP 134/55; PULSE 80; RESP 18
--- NOTE | 2018-12-03 16:21 | HP ---
DATE OF ADMISSION: 12/02/2018 CHIEF COMPLAINT: Shortness of breath and wheezing. HISTORY OF PRESENT ILLNESS: A 58-year-old female with history of chronic asthma and type 2 diabetes mellitus. She presented to emergency room with complaint of productive cough of clear sputum, subjec tive fevers and shortness of breath. The patient denied any chest pain. Initial evaluation revealed acute on chronic asthma exacerbation. Chest x-ray showed increased interstitial marking at the lung bases with questionable peripheral right basilar segmental atelectasis versus consolidation. White blood cell count was elevated to 18,000. The patient had been on prednisone as outpatient. Initial pulse oximetry was 95% on room air. PAST MEDICAL HISTORY: 1. Chronic asthma. 2. Poorly controlled type 2 diabetes mellitus. 3. Hypertension. 4. Chronic depression. 5. Diabetic neuropathy. MEDICATIONS PRIOR TO ADMISSION: 1. Albuterol inhaler. 2. Dicyclomine sulfate. 3. Clonidine. 4. Lisinopril. 5. Metoprolol. 6. Bupropion. 7. Lyrica. 8. Venlafaxine. 9. Tessalon Perles. 10. Advair. 11. Omeprazole. 12. Insulin. 13. Metformin. 14. Prednisone. 15. Januvia. 16. Vitamin D supplement. SOCIAL HISTORY: The patient lives at home. She denies tobacco or alcohol use. PHYSICAL EXAMINATION: GENERAL: Well-developed, well-nourished, morbidly obese female who is in no apparent distress. VITAL SIGNS: Stable. She is afebrile. HEENT: Extraocular muscles are intact. Pupils are equal and reactive to light bilaterally. Sclerae are anicteric. Oropharynx is clear and moist. NECK: Supple. No JVD, no carotid bruits. LUNGS: Clear to auscultation bilaterally. CARDIAC: Regular rate and rhythm. No murmurs, rubs or gallops. ABDOMEN: Soft, nontender, nondistended. Normoactive bowel sounds. EXTREMITIES: Mild edema. Left great toe with clean lesion on the tip of toe. NEUROLOGICAL: The patient has decreased sensation in bilateral lower extremities. Motor and coordin ation are intact in all extremities. LABORATORY DATA: Basic metabolic panel is within normal limits except for glucose of 272. ASSESSMENT: 1. A 58-year-old female with acute asthma exacerbation, resolved. 2. Poorly controlled type 2 diabetes mellitus. 3. Hypertension. 4. Morbid obesity. 5. Chronic depression. 6. Left great toe diabetic foot ulcers with no evidence of infection. PLAN: 1. Place in med/surg observation. IV Solu-Medrol. Levaquin and respiratory treatments. 2. Start basaglar insulin b.i.d. 3. Discharge planning. Dictated By: MAMI BARRAZA/ANGIE Conf#: [id number] DID#: [id number]
--- NOTE | 2018-12-03 17:05 | QN ---
Documentation Comment 58 year old woman well known to me. History of Type 2 Diabetes Mellitus with severe insulin resistance requiring high dose insulin concentration. She is regularly treated with Humulin R U-500 insulin. She was admitted for an asthma exacerbation and community acquired PNA and placed on corticosteroids which inherently will raise her glucose levels. She will be discharged home today, but I have reviewed with her the necessary changes to her insulin regimen to help control the glucose levels. She understands the dosing changes. She will be in touch with me this week thru my office for further glycemic management. DEMETRIUS QUEZADA MD Dec 03, 2018 17:05
--- NOTE | 2018-12-03 17:17 | DS ---
DATE OF ADMISSION: 12/02/2018 DATE OF DISCHARGE: DISCHARGE DIAGNOSES: 1. Acute asthma exacerbation. 2. Right lower lobe pneumonia. 3. Poorly controlled diabetes mellitus. 4. Moderate obesity. 5. Hypertension. 6. Chronic depression. 7. Diabetic neuropathy. HOSPITAL COURSE: A 58-year-old female with history of chronic asthma, returned to emergency room wit h complaint of asthma exacerbation and subjective fevers. The patient was afebrile in the emergency room. Chest x-ray suggested right lower lobe consolidation. The patient was initially found to be w heezing. She was started on IV Solu-Medrol, respiratory treatment and Levaquin. Condition improved significantly by the following day. The patient was no longer more wheezing and remained afebrile. She is in a stable condition for discharge. I prescribed 5 days of Levaquin as well as prednisone wi taper. The patient was given Glargine insulin 30 units twice daily. She was asked to follow up w ith her primary care provider. The patient had an appointment with her virtual reality specialist, on 0 12/18/2018. I also requested follow up with endocrinology for better control of her diabetes. Dictated By: MAMI BARRAZA/ANGIE Conf#: [id number] DID#: [id number]
[2018-12-04] MEDS ORDERED: NPH, HUMAN INSULIN ISOPHANE 3ML VIAL SC SCH (14:00)
== END 2018-12-03 17:11 | disposition home or self-care (01) | DRG 202 ==
LOC: FTE 15:12 → PP2 18:05 → EDBEDREQ 18:52
PROVIDERS: ADMIT Internal Medicine; ATTEND Internal Medicine
DX: J45.901 Unspecified asthma with (acute) exacerbation (principal); J18.9 Pneumonia, unspecified organism; E11.65 Type 2 diabetes mellitus with hyperglycemia; E66.9 Obesity, unspecified; Z68.38 Body mass index [BMI] 38.0-38.9, adult; I10 Essential (primary) hypertension; F32.9 Major depressive disorder, single episode, unspecified; E11.40 Type 2 diabetes mellitus with diabetic neuropathy, unspecified
CPT/HCPCS: 36415; 71045; 80048; 82962; 83605; 84484; 85025; 94640; 94644; 94664; 96372; 96374; J0456; J0696; J1100; J1815; J2930

== ENCOUNTER 2018-12-04 00:15 | Emergency (ER) | payer OTHER ==
[~2018-12-04] VITALS: Ht 167.6 cm; Wt 115.4 kg
[~2018-12-04 00:15] MED LIST changes: -RANI300T PO
[2018-12-04 00:20] VITALS: BP 176/77; PULSE 94; RESP 20; Ht 167.6 cm; Wt 115.4 kg
--- NOTE | 2018-12-04 00:44 | ERD ---
ER Documentation Chief Complaint Chief Complaint D/C'D FROM HOSP TODAY; FACIAL RASH AND CHEST RASH; NO RESP DISTRESS HPI This is a 58-year-old female with a significant frequency of visits to the emergency room. Patient was just admitted with less than 24-hour stay for possible pneumonia. her insulin was changed. She was also sent home on Levaquin. Patient has had Levaquin in the past. She is describing flushing to the face and upper neck. It is slightly pruritic. She denies any lip swelling tongue swelling difficulty breathing or change in her voice. No respiratory symptoms. Patient is concerned that she is having allergic reaction. The only new medication will be the prescription for Levaquin but she has not filled this medication and the new insulin. Patient states that she took the new insulin around 5 PM and shortly thereafter started to notice the symptoms. Patient denies any fevers or chills chest pain or shortness of breath. ROS All systems reviewed and are negative except as per history of present illness. Medications Home Meds Active Scripts Hydroxyzine Hcl* (Atarax*) 25 Mg Tab, 25 MG PO Q6H PRN for ITCHING, #30 TAB Prov:PACO SOLIS MD 12/04/18 Prednisone* (Prednisone*) 10 Mg Tab, 10 MG PO DAILY for 7 Days, #30 TAB Prov:MAMI DIAMOND MD 12/03/18 [Insulin Glargine] 100 UNITS/ML SOLN No Conflict Check, 30 UNITS SC BID for 30 Days Prov:MAMI DIAMOND MD 12/03/18 Levofloxacin* (Levaquin*) 750 Mg Tablet, 750 MG PO DAILY@06 for 5 Days, TAB Prov:MAMI DIAMOND MD 12/03/18 Benzonatate* (Tessalon Perle*) 100 Mg Capsule, 100 MG PO Q8H PRN for COUGH, #30 CAP Prov:RISHI PRIETO PA-C 09/26/18 Albuterol Sulfate* (Albuterol Sulfate* Neb) 0.083%-3 Ml Neb, 2.5 MG NEB Q4 PRN for SHORTNESS OF BREATH, #30 EA Prov:PACO SOLIS MD 08/17/18 Reported Medications Metoprolol Tartrate* (Lopressor*) 25 Mg Tab, 25 MG PO BID, #60 TAB 08/17/18 Clonidine Hcl* (Clonidine Hcl*) 0.1 Mg Tab, 0.1 MG PO DAILY, TAB 08/17/18 Lisinopril* (Lisinopril*) 20 Mg Tablet, 20 MG PO DAILY, #30 TAB 08/17/18 Insulin Regular, Human (Humulin R U-500 Kwikpen) 500 Unit/1 Ml Insuln.pen, 5 UNIT SQ QPM 08/17/18 Insulin Regular, Human (Humulin R U-500 Kwikpen) 500 Unit/1 Ml Insuln.pen, 10 UNIT SQ QAM 08/17/18 Ergocalciferol (Vitamin D2) (VITAMIN D2) 50,000 Unit Capsule, 60906 UNIT PO Q7D, CAP 08/17/18 Omeprazole* (Omeprazole*) 40 Mg Capsule.dr, 40 MG PO DAILY, #30 CAP 08/17/18 Metformin Hcl* (Metformin Hcl*) 1,000 Mg Tablet, 1000 MG PO WITH BREAKFAST DINNE, #60 TAB 08/17/18 Dicyclomine HCl (Dicyclomine HCl) 10 Mg Capsule, 10 MG PO TID 08/17/18 Ferrous Sulfate* (Ferrous Sulfate*) 325 Mg Tabec, 325 MG PO BID, TAB 08/17/18 Sitagliptin* (Januvia*) 100 Mg Tablet, 100 MG PO DAILY, #30 TAB 08/17/18 Venlafaxine Hcl* (Venlafaxine Hcl ER*) 75 Mg Cap.er.24h, 75 MG PO DAILY, CAP 08/17/18 Bupropion Hcl* (Bupropion Hcl*) 100 Mg Tablet, 100 MG PO BID, TAB 08/17/18 Salmeterol Xinaf/Fluticasone* (Advair*) 250-50 Diskus Inhaler, 1 INH INHALATION BID, #1 INHALER 08/17/18 Albuterol Sulfate* (Proair HFA*) 8.5 Gm Hfa.aer.ad, 2 PUFF INH Q4H PRN for WHEEZING AND SOB, #1 INHALER 08/17/18 Pregabalin* (Lyrica*) 100 Mg Capsule, 100 MG PO TID, CAP 08/17/18 Discontinued Reported Medications Ranitidine Hcl* (Ranitidine Hcl*) 300 Mg Tablet, 300 MG PO HS, #30 TAB 08/17/18 Discontinued Scripts Prednisone* (Prednisone*) 20 Mg Tab, 60 MG PO DAILY for 5 Days, TAB Prov:CHANEL ABREU MD 09/28/18 Allergies Allergies: Coded Allergies: No Known Allergy (Unverified , 08/17/18) PMhx/Soc History of Surgery: Yes Anesthesia Reaction: No Hx Neurological Disorder: No Hx Respiratory Disorders: Yes Hx Cardiac Disorders: Yes Hx Psychiatric Problems: Yes Hx Miscellaneous Medical Probl: No Hx Alcohol Use: Yes Hx Substance Use: No Hx Tobacco Use: No Smoking Status: Never smoker FmHx Family History: diabetes Physical Exam Vitals Vital Signs Date Temp Pulse Resp B/P (MAP) Pulse Ox O2 O2 Flow FiO2 Time Delivery Rate 12/04/18 98.9 94 20 176/77 96 00:20 (110) Physical Exam General: Well developed, well nourished, no acute distress Head: Normocephalic, atraumatic. Eyes: Pupils equally reactive, EOM intact ENT: Moist mucous membranes, no lip swelling or tongue swelling, and phonating without difficulty Neck: Supple, no lymphadenopathy Respiratory: Lungs clear bilaterally, no distress Cardiovascular: RRR, no murmurs, rubs, or gallops Abdominal: Soft, non-tender, non-distended, no peritoneal signs : Deferred MSK: No edema, no unilateral swelling, 5/5 strength Neurologic: Alert and oriented, moving all extremities, normal speech, no focal weakness, no cerebellar signs Skin: Slight flushing of the head face and upper neck in sun exposed areas, no urticaria Psych: Normal mood Results 24 hrs Current Medications Medications Dose Sig/Lino Start Time Status Last (Trade) Ordered Route PRN Stop Time Admin Dose Reason Admin 25 mg ONCE ONCE 12/04/18 Diphenhydrami PO 01:00 ne HCl 12/04/18 01:01 (Benadryl) Famotidine 20 mg ONCE ONCE 12/04/18 (Pepcid) PO 01:00 12/04/18 01:01 Procedures/MDM Patient is possibly having adverse reaction versus allergic reaction. I do not believe that is the Levaquin. The patient started a new insulin regimen. Adverse reaction to this medication can be possible. I am not convinced this is consistent with allergic reaction or anaphylaxis. She has no evidence of airway involvement. Symptoms are minimal. There is intervally improving. Patient was advised to return to her regular insulin regimen. She is currently taking steroids. Benadryl and Pepcid provided. A course of antihistamines might be reasonable. At this time the patient does not require prolonged observation in the emergency room setting. Symptoms are moderate, mild. Patient has no evidence of lip swelling or tongue swelling or airway involvement. Prolonged observation in the emergency room setting is not necessary. Return precautions were discussed and understood. She does not live alone and can be monitored at home if needed. The patient does not have an identifiable emergent medical condition that warrants inpatient hospitalization at this time. The patient is deemed safe for discharge with outpatient follow-up. We discussed follow up with the patient's primary care doctor within 24 to 48 hours as needed. We also discussed return to the emergency room for worsening symptoms or worsening condition. Outpatient referral: [None required] Discharge Medications: Continue prednisone, Atarax Departure Diagnosis: Primary Impression: Flushing Condition: Stable Patient Instructions: Allergic Reaction, Other (General) Additional Instructions: Return for any lip swelling, tongue swelling, difficulty breathing or worsening symptoms. PACO SOLIS MD Dec 04, 2018 00:44
[2018-12-04] MEDS ORDERED: FAMOTIDINE 20 MG TAB PO ONE (01:00)
[2018-12-04] MEDS ORDERED: DIPHENHYDRAMINE 25 MG CAP PO ONE (01:00)
== END 2018-12-04 01:02 | disposition home or self-care (01) ==
LOC: E/R 00:15
DX: R23.2 Flushing (principal)
CPT/HCPCS: 99283

== ENCOUNTER 2018-12-04 11:41 | Emergency (ER) | payer OTHER ==
[~2018-12-04] VITALS: Ht 172.7 cm; Wt 113.2 kg
[2018-12-04 11:49] VITALS: BP 159/76; PULSE 85; RESP 18; Ht 172.7 cm; Wt 113.2 kg
--- NOTE | 2018-12-04 13:52 | ERD ---
ER Documentation Chief Complaint Chief Complaint called back for postive blood cultures , d/c from [facility] yesterday HPI Patient is a 58-year-old female who presents for a positive blood culture. She was sent by her primary doctor because they found out that she had a positive blood culture done with recent labs. The patient has no symptoms and said that she was just discharged from the hospital. Upon review of old medical record the patient has multiple visits to the ER for various complaints. She said that she was given a prescription for prednisone 10 mg for 7 days but the prescription was written incorrectly and therefore the pharmacy would not fill it. ROS All systems reviewed and are negative except as per history of present illness. Medications Home Meds Active Scripts Prednisone* (Prednisone*) 20 Mg Tab, 10 MG PO DAILY for 7 Days, TAB Prov:CHANEL ABREU MD 12/04/18 Hydroxyzine Hcl* (Atarax*) 25 Mg Tab, 25 MG PO Q6H PRN for ITCHING, #30 TAB Prov:PACO SOLIS MD 12/04/18 Prednisone* (Prednisone*) 10 Mg Tab, 10 MG PO DAILY for 7 Days, #30 TAB Prov:MAMI DIAMOND MD 12/03/18 [Insulin Glargine] 100 UNITS/ML SOLN No Conflict Check, 30 UNITS SC BID for 30 Days Prov:MAMI DIAMOND MD 12/03/18 Levofloxacin* (Levaquin*) 750 Mg Tablet, 750 MG PO DAILY@06 for 5 Days, TAB Prov:MAMI DIAMOND MD 12/03/18 Benzonatate* (Tessalon Perle*) 100 Mg Capsule, 100 MG PO Q8H PRN for COUGH, #30 CAP Prov:RISHI PRIETO PA-C 09/26/18 Albuterol Sulfate* (Albuterol Sulfate* Neb) 0.083%-3 Ml Neb, 2.5 MG NEB Q4 PRN for SHORTNESS OF BREATH, #30 EA Prov:PACO SOLIS MD 08/17/18 Reported Medications Metoprolol Tartrate* (Lopressor*) 25 Mg Tab, 25 MG PO BID, #60 TAB 08/17/18 Clonidine Hcl* (Clonidine Hcl*) 0.1 Mg Tab, 0.1 MG PO DAILY, TAB 08/17/18 Lisinopril* (Lisinopril*) 20 Mg Tablet, 20 MG PO DAILY, #30 TAB 08/17/18 Insulin Regular, Human (Humulin R U-500 Kwikpen) 500 Unit/1 Ml Insuln.pen, 5 UNIT SQ QPM 08/17/18 Insulin Regular, Human (Humulin R U-500 Kwikpen) 500 Unit/1 Ml Insuln.pen, 10 UNIT SQ QAM 08/17/18 Ergocalciferol (Vitamin D2) (VITAMIN D2) 50,000 Unit Capsule, 86814 UNIT PO Q7D, CAP 08/17/18 Omeprazole* (Omeprazole*) 40 Mg Capsule.dr, 40 MG PO DAILY, #30 CAP 08/17/18 Metformin Hcl* (Metformin Hcl*) 1,000 Mg Tablet, 1000 MG PO WITH BREAKFAST DINNE, #60 TAB 08/17/18 Dicyclomine HCl (Dicyclomine HCl) 10 Mg Capsule, 10 MG PO TID 08/17/18 Ferrous Sulfate* (Ferrous Sulfate*) 325 Mg Tabec, 325 MG PO BID, TAB 08/17/18 Sitagliptin* (Januvia*) 100 Mg Tablet, 100 MG PO DAILY, #30 TAB 08/17/18 Venlafaxine Hcl* (Venlafaxine Hcl ER*) 75 Mg Cap.er.24h, 75 MG PO DAILY, CAP 08/17/18 Bupropion Hcl* (Bupropion Hcl*) 100 Mg Tablet, 100 MG PO BID, TAB 08/17/18 Salmeterol Xinaf/Fluticasone* (Advair*) 250-50 Diskus Inhaler, 1 INH INHALATION BID, #1 INHALER 08/17/18 Albuterol Sulfate* (Proair HFA*) 8.5 Gm Hfa.aer.ad, 2 PUFF INH Q4H PRN for WHEEZING AND SOB, #1 INHALER 08/17/18 Pregabalin* (Lyrica*) 100 Mg Capsule, 100 MG PO TID, CAP 08/17/18 Discontinued Reported Medications Ranitidine Hcl* (Ranitidine Hcl*) 300 Mg Tablet, 300 MG PO HS, #30 TAB 08/17/18 Discontinued Scripts Prednisone* (Prednisone*) 20 Mg Tab, 60 MG PO DAILY for 5 Days, TAB Prov:CHANEL ABREU MD 09/28/18 Allergies Allergies: Coded Allergies: No Known Allergy (Unverified , 08/17/18) PMhx/Soc History of Surgery: Yes Anesthesia Reaction: No Hx Neurological Disorder: No Hx Respiratory Disorders: Yes (PNA) Hx Cardiac Disorders: Yes (HTN) Hx Psychiatric Problems: Yes Hx Miscellaneous Medical Probl: No Hx Alcohol Use: Yes Hx Substance Use: No Hx Tobacco Use: No Smoking Status: Never smoker FmHx Family History: No diabetes Physical Exam Vitals Vital Signs Date Temp Pulse Resp B/P (MAP) Pulse Ox O2 O2 Flow FiO2 Time Delivery Rate 12/04/18 98.9 85 18 159/76 93 11:49 (103) Physical Exam Const: No acute distress Head: Atraumatic Eyes: Normal Conjunctiva ENT: Normal External Ears, Nose and Mouth. Neck: Full range of motion. No meningismus. Resp: Clear to auscultation bilaterally Cardio: Regular rate and rhythm, no murmurs Abd: Soft, non tender, non distended. Normal bowel sounds Skin: No petechiae or rashes Back: No midline or flank tenderness Ext: No cyanosis, or edema Neur: Awake and alert Psych: Normal Mood and Affect Procedures/MDM Patient is a 58-year-old female presents because she was told to come back for a positive blood culture. I reviewed the 2 recent blood cultures that were done on the previous visit. One bottle was negative for any growth and the other bottle showed gram-positive cocci. I believe this is likely a contaminant and not a true bacteremia. The patient is well-appearing without fevers. The patient will be discharged with a prescription for prednisone 10 mg daily for 7 days. The patient can return for any worsening symptoms. I believe outpatient management is appropriate at this time. She is being treated as an outpatient for pneumonia. Departure Diagnosis: Primary Impression: Pneumonia Pneumonia type: due to unspecified organism Laterality: unspecified laterality Lung location: unspecified part of lung Qualified Codes: J18.9 - Pneumonia, unspecified organism Condition: Fair Patient Instructions: Pneumonia (Adult) Additional Instructions: Call your primary care doctor TOMORROW for an appointment during the next 1 WEEK.Tell the private secretary that you were referred from this facility.See the doctor sooner or return here if your condition worsens before your appointment time. CHANEL ABREU MD Dec 04, 2018 13:52
== END 2018-12-04 12:58 | disposition home or self-care (01) ==
LOC: E/R 11:41
DX: J18.9 Pneumonia, unspecified organism (principal); I10 Essential (primary) hypertension; E11.9 Type 2 diabetes mellitus without complications; Z79.4 Long term (current) use of insulin
CPT/HCPCS: 99283